=== PATIENT | male | born 1970 | race Caucasian/White ===

== ENCOUNTER 2016-11-25 09:38 | Emergency (ER) | payer OTHER ==
--- NOTE | 2016-11-25 10:02 | EDM.PDOC ---
ED HPI Behavioral Health - General Chief Complaint: Behavioral/Psych Stated Complaint: DEPRESSION Time Seen by Provider: 11/25/16 09:56 Source of Information: Reports: Patient Exam Limitations: Reports: No limitations - History of Present Illness INITIAL COMMENTS - FREE TEXT/NARRATIVE: HISTORY AND PHYSICAL: [46-year-old male presenting for concerns over depression and suicidal ideation. The patient did call to [facility] in my note and they recommended that he present to the emergency room and be evaluated.] History of Present Illness: [Patient has history of having severe depression and previous suicidal attempt. After his ablation therapy for kidney stones he has been at home. He is having difficult time leaving the house. Has not gone to work now, for the last 3 days. Patient admits to having suicidal ideation and has made plans. He has been taking his medication as prescribed. Patient has utilized marijuana to help him sleep. Denies any other drug use or alcohol use.] Review of Systems: As per history of present illness and below otherwise all systems reviewed and negative. Past medical history: As per history of present illness and as reviewed below otherwise noncontributory. Surgical history: As per history of present illness and as reviewed below otherwise noncontributory. Social history: No reported history of drug or alcohol abuse. Patient lives at home with his and child. They are supportive to his difficulty. Family history: As per history of present illness and as reviewed below otherwise noncontributory. Physical exam: HEENT: Atraumatic, normocehpalic, pupils reactive, negative for conjunctival pallor or scleral icterus, mucous membranes moist, throat clear, neck supple, nontender, trachea midline. Lungs: Clear to auscultation, breath sounds equal bilaterally, chest non tender. Heart: S1S2, regular, negative for clicks, rubs, or JVD. Abdomen: Soft, nondistended, nontender. Negative for masses or hepatossplenmegaly. Negative for costovertebral tenderness. Pelvis: Stable nontender. Genitourinary: Deferred. Rectal: Deferred Extremities: Atraumatic, negative for cords or calf pain. Neurovascular unremarkable. Neuro: Awake, alert, oriented. Cranial nerves II through XII unremarkable. Cerebellum unremarkable. Motor and sensory unremarkable throughout. Exam nonfocal. Diagnostics: [ EKG UA urine drug screen EtOH salicylate acetaminophen TSH T3 free magnesium CBC CMP] Therapeutics: [] Impression: [Depression with suicidal ideation] Plan: [Discussed case with Dr. Reveles at [facility] in [place], [place]. He has accepted the patient for transfer, Discussed case with Dr. Landaverde at [place] [facility] and she has accepted the patient's care patient will be transferred per ground ambulance. He is cooperative and appreciative of this transfer.. EMTALA and transfer forms have been completed.] Definitive disposition and diagnosis as appropriate pending reevaluation and review of above. Onset of Symptoms: Reports: gradual (over the last 2 weeks ) Duration of Symptoms: Reports: Week(s): (2) Severity: moderate Context, Behavioral Health: Reports: living situation Associated Symptoms: Reports: depression, suicidal thought - SAD Persons Scale (SPS) SPS Sex: Male SPS Age: Between 18-65 Years of Age SPS Depression: Yes SPS Previous Suicide Attempts: Yes SPS Alcohol Abuse/Drug Abuse: Yes SPS Rational Thinking Loss: No SPS Social Support Deficit: No SPS Organized Suicide Plan: Yes SPS No Spouse/Significant Other: No SPS Sickness: Yes SPS Sad Person Scale Score: 6 - Related Data Allergies Allergy/AdvReac Type Severity Reaction Status Date / Time No Known Allergies Allergy Verified 09/01/16 09:28 Home Medications: Home Meds Hydrochlorothiazide 25 mg PO DAILY 04/27/14 [History] Metoprolol Succinate [Toprol XL] 200 mg PO DAILY 01/03/15 [History] DULoxetine [Cymbalta] 60 mg PO DAILY 08/07/15 [History] ARIPiprazole [Abilify] 10 mg PO DAILY 09/01/16 [History] Past Medical History - Past Health History Medical/Surgical History: Denies Medical/Surgical History Cardiovascular History: Reports: Hypertension Gastrointestinal History: Reports: Other (see below) Other Gastrointestinal History: occasional heartburn Genitourinary History: Reports: Renal calculus Other Genitourinary History: several kidney stones Musculoskeletal History: Reports: Arthritis Psychiatric History: Reports: Anxiety, Depression Endocrine/Metabolic History: Reports: Obesity/BMI 30+ Dermatologic History: Reports: Psoriasis - Past Surgical History Head Surgeries/Procedures: Reports: None GI Surgical History: Reports: Cholecystectomy Female Surgical History: Reports: Kidney stone extraction Male Surgical History: Reports: Kidney stone extraction Other Male Surgeries/Procedures: stent placement Social & Family History - Family History Family Medical History: Noncontributory Cardiac: Reports: Hypertension Endocrine/Metabolic: Reports: Diabetes, type I, Diabetes, type II - Tobacco Use Smoking Status *Q: Former Smoker Years of Tobacco use: 15 Packs/Tins Daily: 1 Used Tobacco, but Quit: No Month Tobacco Last Used: quit smoking 20 yrs ago, chews 1 canof chew every 2 days Second Hand Smoke Exposure: No - Caffeine Use Caffeine Use: Reports: None - Alcohol Use Days Per Week of Alcohol Use: 0 Number of Drinks Per Day: 0 Total Drinks Per Week: 0 - Recreational Drug Use Recreational Drug Use: No Drug Use in Last 12 Months: No Recreational Drug Type: ED ROS GENERAL - Review of Systems Review Of Systems: See Below : Reports: flank pain, other (recent surgery for kidney stones) ED EXAM, BEHAVIORAL HEALTH - Physical Exam Exam: See Below (see dictation) COURSE, BEHAVIORAL HEALTH COMP - Course Vital Signs: Last Vital Signs Temp 37.3 C 11/25/16 10:10 Pulse 99 11/25/16 10:10 Resp 18 11/25/16 10:10 BP 152/91 H 11/25/16 10:10 Pulse Ox 97 11/25/16 10:10 Orders, Labs, Meds: Active Orders 24 hr Category Date Time Status EKG 12 Lead [EKG Documentation Completion] [RC] STAT Care 11/25/16 10:53 Active ACETAMINOPHEN [CHEM] Stat Lab 11/25/16 10:24 Results COMPREHENSIVE METABOLIC PN,CMP [CHEM] Stat Lab 11/25/16 10:24 Results DRUG SCREEN, URINE [URCHEM] Stat Lab 11/25/16 10:50 Ordered ETHANOL BLOOD MEDICAL [CHEM] Stat Lab 11/25/16 10:24 Results MAGNESIUM [CHEM] Stat Lab 11/25/16 10:24 Results SALICYLATE [CHEM] Stat Lab 11/25/16 10:24 Results T3, REVERSE [REF] Stat Lab 11/25/16 10:24 Received TSH [CHEM] Stat Lab 11/25/16 10:24 Results UA W/MICROSCOPIC [URIN] Stat Lab 11/25/16 10:50 Ordered Laboratory Tests 11/25/16 11/25/16 Range/Units 10:24 10:24 WBC 8.96 (4.0-11.0) K/uL RBC 5.50 (4.50-5.90) M/uL Hgb 16.5 (13.0-17.0) g/dL Hct 46.6 (38.0-50.0) % MCV 84.7 (80.0-98.0) fL MCH 30.0 (27.0-32.0) pg MCHC 35.4 (31.0-37.0) g/dL RDW Std Deviation 39.5 (28.0-62.0) fl RDW Coeff of Loren 13 (11.0-15.0) % Plt Count 293 (150-400) K/uL MPV 9.20 (7.40-12.00) fL Neut % (Auto) 73.0 (48.0-80.0) % Lymph % (Auto) 19.3 (16.0-40.0) % [place] % (Auto) 7.1 (0.0-15.0) % Eos % (Auto) 0.3 (0.0-7.0) % Baso % (Auto) 0.3 (0.0-1.5) % Neut # 6.5 H (1.4-5.7) K/uL Lymph # 1.7 (0.6-2.4) K/uL [place] # 0.6 (0.0-0.8) K/uL Eos # 0.0 (0.0-0.7) K/uL Baso # 0.0 (0.0-0.1) K/uL Nucleated RBC % 0.0 /100WBC Nucleated RBCs # 0 K/uL Sodium 140 (136-146) mmol/L Potassium 3.7 (3.5-5.1) mmol/L Chloride 105 (98-110) mmol/L Carbon Dioxide 22 (21-31) mmol/L BUN 21 (6.0-23.0) mg/dL Creatinine 1.3 (0.6-1.5) mg/dL Est Cr Clr Drug Dosing 76.43 mL/min Estimated GFR (MDRD) 59.7 ml/min Glucose 130 H (60-110) mg/dL Calcium 9.8 (8.8-10.8) mg/dL Magnesium 1.6 (1.5-2.3) mEq/L Total Bilirubin 0.8 (0.1-1.5) mg/dL AST 31 (5-40) IU/L ALT 70 H (8-54) IU/L Alkaline Phosphatase 69 (40-150) Total Protein 8.0 (6.0-8.0) g/dL Albumin 4.6 (3.5-5.0) g/dL Globulin 3.4 (2.0-3.5) g/dL Albumin/Globulin Ratio 1.4 (1.3-2.8) Ethyl Alcohol < 10.0 mg/dL Departure - Departure Time of Disposition: 11:02 Disposition: DC/Tfer to Psych Hosp/Unit 65 Condition: good Clinical Impression: Depressive disorder, Self-harm Forms: ED Department Discharge - My Orders Last 24 Hours: My Active Orders 11/25/16 10:24 ACETAMINOPHEN [CHEM] Stat COMPREHENSIVE METABOLIC PN,CMP [CHEM] Stat ETHANOL BLOOD MEDICAL [CHEM] Stat MAGNESIUM [CHEM] Stat SALICYLATE [CHEM] Stat T3, REVERSE [REF] Stat TSH [CHEM] Stat 11/25/16 10:50 DRUG SCREEN, URINE [URCHEM] Stat UA W/MICROSCOPIC [URIN] Stat 11/25/16 10:53 EKG 12 Lead [EKG Documentation Completion] [RC] STAT - Assessment/Plan Last 24 Hours: My Active Orders 11/25/16 10:24 ACETAMINOPHEN [CHEM] Stat COMPREHENSIVE METABOLIC PN,CMP [CHEM] Stat ETHANOL BLOOD MEDICAL [CHEM] Stat MAGNESIUM [CHEM] Stat SALICYLATE [CHEM] Stat T3, REVERSE [REF] Stat TSH [CHEM] Stat 11/25/16 10:50 DRUG SCREEN, URINE [URCHEM] Stat UA W/MICROSCOPIC [URIN] Stat 11/25/16 10:53 EKG 12 Lead [EKG Documentation Completion] [RC] STAT
[2016-11-25 10:50] LABS: CHLORIDE,CL 105 mmol/L (98-110); SODIUM,NA 140 mmol/L (136-146)
[2016-11-25 11:32] LABS: ACETAMINOPHEN < 3.0 ug/mL
[2016-11-25 11:42] VITALS: BP 132/87
== END 2016-11-25 11:51 ==
LOC: MW.ED 09:38
DX: F32.9 Major depressive disorder, single episode, unspecified (principal); I10 Essential (primary) hypertension; E11.9 Type 2 diabetes mellitus without complications; Z68.30 Body mass index [BMI] 30.0-30.9, adult; Z87.891 Personal history of nicotine dependence; Z90.49 Acquired absence of other specified parts of digestive tract; Z96.0 Presence of urogenital implants; Z98.890 Other specified postprocedural states; Z79.899 Other long term (current) drug therapy
CPT/HCPCS: 80053; 80305; 81001; 83735; 84443; 84482; 85025; 93005; 99285; G0480; 36415

== ENCOUNTER 2018-10-06 17:52 | Inpatient (IN) | payer OTHER ==
[2018-10-06] MEDS ORDERED: Morphine 4 MG/ML Syringe IVPUSH ONE (17:55)
[2018-10-06] MEDS ORDERED: Sodium Chloride 0.9% 1,000 ML IV ONE (17:55)
[2018-10-06] MEDS ORDERED: Ondansetron 4 MG/2 ML SDV IVPUSH ONE (17:55)
--- NOTE | 2018-10-06 18:01 | EDM.PDOC ---
ED HPI GENERAL MEDICAL PROBLEM - General Chief Complaint: Abdominal Pain Stated Complaint: GROIN PAIN Time Seen by Provider: 10/06/18 17:53 Source of Information: Reports: Patient History Limitations: Reports: No Limitations - History of Present Illness INITIAL COMMENTS - FREE TEXT/NARRATIVE: HISTORY AND PHYSICAL: History of present illness: Patient is a 48-year-old male who presents to the emergency room today with complaints of right lower abdominal pain and periumbilical pain. He states approximately an hour and a half ago he started to have generalized mid abdominal pain and the sensation of needing to have a bowel movement. He states he went to the toilet and started to bear down to have a bowel movement when he felt extreme pain to the right lower quadrant and umbilical area. He does have a history of kidney stones and hernia. He states he can feel that the hernia is more prominent and is painful with light palpation. Denies any testicular pain or swelling. Denies any fever, chills, chest pain, shortness of breath or cough. Denies any nausea, vomiting, diarrhea or constipation. Review of systems: As per history of present illness and below otherwise all systems reviewed and negative. Past medical history: As per history of present illness and as reviewed below otherwise noncontributory. Surgical history: As per history of present illness and as reviewed below otherwise noncontributory. Social history: See social history for further information Family history: As per history of present illness and as reviewed below otherwise noncontributory. Physical exam: General: Well-developed and well nourished 48-year-old male. Alert and oriented. Nontoxic appearing but uncomfortable appearing due to the abdominal pain. HEENT: Atraumatic, normocephalic, pupils equal and reactive bilaterally, negative for conjunctival pallor or scleral icterus, mucous membranes moist, TMs normal bilaterally, throat clear, neck supple, nontender, trachea midline. No drooling or trismus noted. No meningeal signs. No hot potato voice noted. Lungs: Clear to auscultation, breath sounds equal bilaterally, chest nontender. Heart: S1S2, regular rate and rhythm without overt murmur Abdomen: Soft, obese, tenderness to the RLQ and umbilicus at the 8 o'clock position. Palpable hernia at the umbilicus. No hepatosplenomegaly. Negative for costovertebral tenderness. Pelvis: Stable nontender. Genitourinary: Deferred. Rectal: Deferred. Skin: Intact, warm, dry. No lesions or rashes noted. Extremities: Atraumatic, negative for cords or calf pain. Neurovascular unremarkable. Neuro: Awake, alert, oriented. Cranial nerves II through XII unremarkable. Cerebellum unremarkable. Motor and sensory unremarkable throughout. Exam nonfocal. Notes: CT shows a new partial small bowel obstruction from a new protrusion of a moderately dilated incarcerated loop of small bowel into the hernia sac. There are some kidney stones noted, left. This information was shared with the patient. Dr. Rivera was consulted on this case. Last ate 1pm and a few sips of water prior to that. Dr Rivera is here to evaluate the patient. Plan is to go to the ER. VSS. Diagnostics: CBC, CMP, UA, CT abdomen/pelvis Therapeutics: IV fluids, Zofran, Morphine, Toradol, Dilaudid Impression: Incarcerated hernia Plan: To the OR per Dr Rivera Definitive disposition and diagnosis as appropriate pending reevaluation and review of above. Onset: Today Groin Pain Score (Numeric/FACES): 10 - Related Data Allergies Allergy/AdvReac Type Severity Reaction Status Date / Time No Known Allergies Allergy Verified 10/06/18 17:56 Home Meds: Home Meds hydroCHLOROthiazide [Hydrochlorothiazide] 25 mg PO DAILY 04/27/14 [History] DULoxetine [Cymbalta] 60 mg PO DAILY 08/07/15 [History] Past Medical History - Past Health History Medical/Surgical History: Denies Medical/Surgical History Cardiovascular History: Reports: Hypertension Gastrointestinal History: Reports: Other (See Below) Other Gastrointestinal History: occasional heartburn Genitourinary History: Reports: Renal Calculus Other Genitourinary History: several kidney stones Musculoskeletal History: Reports: Arthritis Psychiatric History: Reports: Anxiety, Depression Endocrine/Metabolic History: Reports: Obesity/BMI 30+ Dermatologic History: Reports: Psoriasis - Past Surgical History Male Surgical History: Reports: Kidney Stone Extraction Social & Family History - Family History Family Medical History: Noncontributory Cardiac: Reports: Hypertension Endocrine/Metabolic: Reports: Diabetes, Type I, Diabetes, type II - Caffeine Use Caffeine Use: Reports: None ED ROS GENERAL - Review of Systems Review Of Systems: ROS reveals no pertinent complaints other than HPI. ED EXAM, GI/ABD - Physical Exam Exam: See Below (See dictation) Course - Vital Signs Last Recorded V/S: Last Vital Signs Temp 97.4 F 10/06/18 19:14 Pulse 74 10/06/18 19:14 Resp 19 10/06/18 19:14 BP 201/109 H 10/06/18 19:14 Pulse Ox 97 10/06/18 19:14 - Orders/Labs/Meds Labs: Laboratory Tests 10/06/18 10/06/18 10/06/18 Range/Units 18:03 18:03 19:23 WBC 13.89 H (4.0-11.0) K/uL RBC 5.80 (4.50-5.90) M/uL Hgb 17.8 H (13.0-17.0) g/dL Hct 49.9 (38.0-50.0) % MCV 86.0 (80.0-98.0) fL MCH 30.7 (27.0-32.0) pg MCHC 35.7 (31.0-37.0) g/dL RDW Std Deviation 40.9 (28.0-62.0) fl RDW Coeff of Loren 13 (11.0-15.0) % Plt Count 329 (150-400) K/uL MPV 9.10 (7.40-12.00) fL Neut % (Auto) 65.0 (48.0-80.0) % Lymph % (Auto) 25.1 (16.0-40.0) % [place] % (Auto) 8.6 (0.0-15.0) % Eos % (Auto) 0.9 (0.0-7.0) % Baso % (Auto) 0.4 (0.0-1.5) % Neut # (Auto) 9.0 H (1.4-5.7) K/uL Lymph # (Auto) 3.5 H (0.6-2.4) K/uL [place] # (Auto) 1.2 H (0.0-0.8) K/uL Eos # (Auto) 0.1 (0.0-0.7) K/uL Baso # (Auto) 0.1 (0.0-0.1) K/uL Nucleated RBC % 0.0 /100WBC Nucleated RBCs # 0 K/uL Sodium 139 (136-148) mmol/L Potassium 3.5 (3.5-5.1) mmol/L Chloride 103 (98-107) mmol/L Carbon Dioxide 22.6 (21.0-32.0) mmol/L BUN 19 H (7.0-18.0) mg/dL Creatinine 1.1 (0.8-1.3) mg/dL Est Cr Clr Drug Dosing 88.42 mL/min Estimated GFR (MDRD) > 60.0 ml/min Glucose 128 H (74-106) mg/dL Calcium 9.2 (8.5-10.1) mg/dL Total Bilirubin 0.5 (0.2-1.0) mg/dL AST 18 (15-37) IU/L ALT 45 (14-63) IU/L Alkaline Phosphatase 80 (46-116) U/L Total Protein 8.2 (6.4-8.2) g/dL Albumin 4.3 (3.4-5.0) g/dL Globulin 3.9 (2.6-4.0) g/dL Albumin/Globulin Ratio 1.1 (0.9-1.6) Urine Color YELLOW Urine Appearance CLEAR Urine pH 5.5 (5.0-8.0) Ur Specific [place] >= 1.030 (1.001-1.035) Urine Protein 100 H (NEGATIVE) mg/dL Urine Glucose (UA) NEGATIVE (NEGATIVE) mg/dL Urine Ketones TRACE H (NEGATIVE) mg/dL Urine Occult Blood SMALL H (NEGATIVE) Urine Nitrite NEGATIVE (NEGATIVE) Urine Bilirubin NEGATIVE (NEGATIVE) Urine Urobilinogen 0.2 (<2.0) EU/dL Ur Leukocyte Esterase NEGATIVE (NEGATIVE) Urine RBC 1-2 (0-2/HPF) Urine WBC 1-2 (0-5/HPF) Ur Epithelial Cells RARE (NONE-FEW) Urine Bacteria FEW (NEGATIVE) Urine Mucus LIGHT (NONE-MOD) Meds: Medications Discontinued Medications Generic Name Dose Route Start Last Admin Trade Name Freq PRN Reason Stop Dose Admin Hydromorphone HCl 1 mg 10/06/18 18:15 10/06/18 18:24 Dilaudid IV 10/06/18 18:16 Not Given ONETIME ONE Hydromorphone HCl Confirm 10/06/18 18:17 10/06/18 18:22 Dilaudid Administered 10/06/18 18:18 Not Given Dose 1 mg .ROUTE .STK-MED ONE Hydromorphone HCl 1 mg 10/06/18 18:22 10/06/18 18:22 Dilaudid IVPUSH 10/06/18 18:23 1 mg ONETIME ONE Administration Hydromorphone HCl 1 mg 10/06/18 19:23 10/06/18 19:31 Dilaudid IVPUSH 10/06/18 19:24 1 mg ONETIME ONE Administration Sodium Chloride 1,000 mls @ 999 mls/hr 10/06/18 17:55 10/06/18 18:10 Normal Saline IV 10/06/18 18:55 999 mls/hr BOLUS ONE Administration Ketorolac Tromethamine 30 mg 10/06/18 18:15 10/06/18 18:18 Toradol IVPUSH 10/06/18 18:16 30 mg ONETIME ONE Administration Morphine Sulfate 4 mg 10/06/18 17:55 10/06/18 18:11 Morphine IVPUSH 10/06/18 17:56 4 mg ONETIME ONE Administration Ondansetron HCl 4 mg 10/06/18 17:55 10/06/18 18:11 Zofran IVPUSH 10/06/18 17:56 4 mg ONETIME ONE Administration Departure - Departure Time of Disposition: 20:22 Disposition: Still A Patient 30 Clinical Impression: Incarcerated hernia - Discharge Information
[2018-10-06] MEDS ORDERED: Ketorolac 30 MG/ML SDV IVPUSH ONE (18:15)
[2018-10-06] MEDS ORDERED: HYDROmorphone 2 MG/ML SDV IV ONE (18:15)
[2018-10-06] MEDS ORDERED: HYDROmorphone 1 MG/ML Syringe ONE (18:17)
[2018-10-06] MEDS ORDERED: HYDROmorphone 1 MG/ML Syringe IVPUSH ONE ×2 (18:22→19:23)
[2018-10-06 19:06] LABS: CHLORIDE,CL 103 mmol/L (98-107); SODIUM,NA 139 mmol/L (136-148)
--- NOTE | 2018-10-06 19:43 | CT ---
INDICATION: History of hernia and stones. Right lower quadrant and umbilical pain. COMPARISON: 11/09/2016 TECHNIQUE: CT examination of the abdomen and pelvis was performed without contrast enhancement using 3 mm thick axial sections from the lung bases through the pubic symphysis. Oral contrast was not administered. Please note that all CT scans at this facility use dose modulation, iterative reconstruction, and/or weight-based dosing when appropriate to reduce radiation dose to as low as reasonably achievable. FINDINGS: In the abdomen, the unenhanced liver, spleen, pancreas, and adrenals are normal in appearance. The previously seen nonobstructing calculus in the interpolar left kidney is increased in size slightly and is now 9 millimeters in diameter. The previously seen calculus in the lower pole of the left kidney has moved into the posterior aspect of the lower pole and has increased in size, now measuring 13 millimeters. The previously seen punctate calculus located in the interpolar region is no longer present. The previously seen mild left hydronephrosis and mild left hydroureter has resolved with passage of the distal ureteral calculus. On the right, there is no sign of nephrolithiasis, ureterolithiasis, hydronephrosis, or hydroureter. Clips are again seen in the gall bladder fossa from cholecystectomy. The abdominal aorta is normal in caliber with no sign of dilatation. There is no sign of retroperitoneal mass or adenopathy. There is new mild dilatation of the proximal small bowel extending to the small right periumbilical hernia. The hernia now contains a short segment of distended small bowel consistent with incarceration of the loop. The findings are that of partial small bowel obstruction. The stomach and colon in the abdomen are normal in appearance. In the pelvis, the appendix is normal in appearance with no sign of inflammatory process. The loops of small bowel and colon in the pelvis are normal in appearance. The prostate is normal in appearance. The urinary bladder is normal in appearance. There is no sign of pelvic or inguinal mass or adenopathy. The lung bases are clear. The osseous structures are normal in appearance for the patient`s age. IMPRESSION: CT OF THE ABDOMEN SHOWS NEW PARTIAL SMALL BOWEL OBSTRUCTION FROM NEW PROTRUSION OF A MODERATELY DILATED, INCARCERATED LOOP OF SMALL BOWEL INTO THE HERNIA SAC. RESOLUTION OF THE PREVIOUSLY SEEN MILD LEFT HYDRONEPHROSIS AND HYDROURETER WITH PASSAGE OF THE PREVIOUSLY SEEN LEFT DISTAL URETERAL CALCULUS. INCREASE IN SIZE OF THE 2 DOMINANT CALCULI IN THE LEFT KIDNEY, THE LARGEST MEASURING UP TO 12 MILLIMETERS IN CALIBER. STATUS POST CHOLECYSTECTOMY. CT OF THE PELVIS SHOWS NO SIGN OF ANY ADDITIONAL ABNORMALITY. Please note that all CT scans at this facility use dose modulation, iterative reconstruction, and/or weight-based dosing when appropriate to reduce radiation dose to as low as reasonably achievable. Dictated by Rashid Cleary MD @ Oct 06 2018 7:32PM Signed by Dr. Rashid Cleary @ Oct 06 2018 7:42PM
[2018-10-06] MEDS ORDERED: Bupivacaine 0.5% 30 ML SDV ONE (20:38)
[2018-10-06] MEDS ORDERED: Piperacillin/Tazobactam 3.375 GM in Sodium Chloride 0.9% 50 ML IV ONE (20:39)
[2018-10-06] MEDS ORDERED: Midazolam 1 MG/ML 2 ML SDV ONE ×2 (20:40→21:27)
[2018-10-06] MEDS ORDERED: fentaNYL 250 MCG/5 ML SDV ONE (20:40)
[2018-10-06] MEDS ORDERED: Propofol 200 MG/20 ML SDV ONE (20:40)
[2018-10-06] MEDS ORDERED: Lidocaine 2% 5 ML SDV ONE (20:42)
[2018-10-06] MEDS ORDERED: Rocuronium 10 MG/ML 10 ML Syringe ONE (20:43)
[2018-10-06] MEDS ORDERED: Succinylcholine 200 MG/10 ML MDV ONE (20:43)
[2018-10-06] MEDS ORDERED: Dexamethasone 4 MG/ML 5 ML MDV ONE (20:44)
[2018-10-06] MEDS ORDERED: Ondansetron 4 MG/2 ML SDV ONE (20:44)
--- NOTE | 2018-10-06 21:01 | PCM.PREANE ---
Preanesthetic Assessment - Anesthesia/Transfusion/Family Hx Anesthesia History: Prior Anesthesia Without Reaction (danica, many ESWL and Cysto for kidney stones: GA without problems. One time sounds like he had either laryngospasm or bronchospasm upon extubation after kidney stone procedure.) Other Type of Anesthesia Reaction Comment: states he has a hard time breathing when coming out of anesthesia Family History of Anesthesia Reaction: No Transfusion History: No Prior Transfusion(s) - Review of Systems General: No Symptoms (morbidly obese (5'11' 150 kg)) Pulmonary: No Symptoms (ALEJANDRO--uses cpap at home), Other (quit smoking 2002. Now chews. Quit drinking 2009.) Cardiovascular: No Symptoms (hypertension) Gastrointestinal: No Symptoms (occasional GERD. History of hepatitis 25 years ago.) Neurological: No Symptoms, Other (depression) Other: Reports: None (hard of hearing, obese, arthritis, psoriasis, hepatitis 25 years ago) - Physical Assessment NPO Status Date: 10/06/18 NPO Status Time: 14:30 (food at noon, liquids at 1430) Pulse: 97 O2 Sat by Pulse Oximetry: 95 Respiratory Rate: 19 Blood Pressure: 168/96 Temperature: 36.1 C Vital Signs: Last Vital Signs Temp 36.1 C 10/06/18 20:33 Pulse 97 10/06/18 20:33 Resp 19 10/06/18 20:33 BP 168/96 H 10/06/18 20:33 Pulse Ox 95 10/06/18 20:33 Height: 1.8 m Weight: 142.882 kg ASA Class: 3E Mental Status: Alert & Oriented x3 Airway Class: Mallampati = 2 Dentition: Reports: Normal Dentition Thyro-Mental Finger Breadths: 2 Mouth Opening Finger Breadths: 3 ROM/Head Extension: Full Lungs: Clear to Auscultation, Normal Respiratory Effort Cardiovascular: Regular Rate, Regular Rhythm, No Murmurs - Lab Values: Laboratory Last Values WBC 13.89 K/uL (4.0-11.0) H 10/06/18 18:03 RBC 5.80 M/uL (4.50-5.90) 10/06/18 18:03 Hgb 17.8 g/dL (13.0-17.0) H 10/06/18 18:03 Hct 49.9 % (38.0-50.0) 10/06/18 18:03 MCV 86.0 fL (80.0-98.0) 10/06/18 18:03 MCH 30.7 pg (27.0-32.0) 10/06/18 18:03 MCHC 35.7 g/dL (31.0-37.0) 10/06/18 18:03 RDW Std Deviation 40.9 fl (28.0-62.0) 10/06/18 18: RDW Coeff of Loren 13 % (11.0-15.0) 10/06/18 18:03 Plt Count 329 K/uL (150-400) 10/06/18 18:03 MPV 9.10 fL (7.40-12.00) 10/06/18 18:03 Neut % (Auto) 65.0 % (48.0-80.0) 10/06/18 18:03 Lymph % (Auto) 25.1 % (16.0-40.0) 10/06/18 18:03 [place] % (Auto) 8.6 % (0.0-15.0) 10/06/18 18:03 Eos % (Auto) 0.9 % (0.0-7.0) 10/06/18 18:03 Baso % (Auto) 0.4 % (0.0-1.5) 10/06/18 18:03 Neut # (Auto) 9.0 K/uL (1.4-5.7) H 10/06/18 18:03 Lymph # (Auto) 3.5 K/uL (0.6-2.4) H 10/06/18 18:03 [place] # (Auto) 1.2 K/uL (0.0-0.8) H 10/06/18 18:03 Eos # (Auto) 0.1 K/uL (0.0-0.7) 10/06/18 18:03 Baso # (Auto) 0.1 K/uL (0.0-0.1) 10/06/18 18:03 Nucleated RBC % 0.0 /100WBC 10/06/18 18:03 Nucleated RBCs # 0 K/uL 10/06/18 18:03 Sodium 139 mmol/L (136-148) 10/06/18 18:03 Potassium 3.5 mmol/L (3.5-5.1) 10/06/18 18:03 Chloride 103 mmol/L (98-107) 10/06/18 18:03 Carbon Dioxide 22.6 mmol/L (21.0-32.0) 10/06/18 18:03 BUN 19 mg/dL (7.0-18.0) H 10/06/18 18:03 Creatinine 1.1 mg/dL (0.8-1.3) 10/06/18 18:03 Est Cr Clr Drug Dosing 88.42 mL/min 10/06/18 18:03 Estimated GFR (MDRD) > 60.0 ml/min 10/06/18 18:03 Glucose 128 mg/dL (74-106) H 10/06/18 18:03 Calcium 9.2 mg/dL (8.5-10.1) 10/06/18 18:03 Total Bilirubin 0.5 mg/dL (0.2-1.0) 10/06/18 18:03 AST 18 IU/L (15-37) 10/06/18 18:03 ALT 45 IU/L (14-63) 10/06/18 18:03 Alkaline Phosphatase 80 U/L (46-116) 10/06/18 18:03 Total Protein 8.2 g/dL (6.4-8.2) 10/06/18 18: Albumin 4.3 g/dL (3.4-5.0) 10/06/18 18: Globulin 3.9 g/dL (2.6-4.0) 10/06/18 18: Albumin/Globulin Ratio 1.1 (0.9-1.6) 10/06/18 18: Urine Color YELLOW 10/06/18 19:23 Urine Appearance CLEAR 10/06/18 19: Urine pH 5.5 (5.0-8.0) 10/06/18 19: Ur Specific [place] >= 1.030 (1.001-1.035) 10/06/18 19: Urine Protein 100 mg/dL (NEGATIVE) H 10/06/18 19: Urine Glucose (UA) NEGATIVE mg/dL (NEGATIVE) 10/06/18 19: Urine Ketones TRACE mg/dL (NEGATIVE) H 10/06/18 19: Urine Occult Blood SMALL (NEGATIVE) H 10/06/18 19:23 Urine Nitrite NEGATIVE (NEGATIVE) 10/06/18 19:23 Urine Bilirubin NEGATIVE (NEGATIVE) 10/06/18 19:23 Urine Urobilinogen 0.2 EU/dL (<2.0) 10/06/18 19:23 Ur Leukocyte Esterase NEGATIVE (NEGATIVE) 10/06/18 19:23 Urine RBC 1-2 (0-2/HPF) 10/06/18 19:23 Urine WBC 1-2 (0-5/HPF) 10/06/18 19:23 Ur Epithelial Cells RARE (NONE-FEW) 10/06/18 19:23 Urine Bacteria FEW (NEGATIVE) 10/06/18 19:23 Urine Mucus LIGHT (NONE-MOD) 10/06/18 19:23 - Allergies Allergies/Adverse Reactions: Allergies Allergy/AdvReac Type Severity Reaction Status Date / Time No Known Allergies Allergy Verified 10/06/18 17:56 - Blood Blood Available: No Product(s) Available: None - Acknowledgements Anesthesia Type Planned: General Anesthesia (Plan: GA with ETT. Post op pulse ox overnight (ALEJANDRO). Discussed with patient. All questions answered. Consent signed.) Pt an Appropriate Candidate for the Planned Anesthesia: Yes Alternatives and Risks of Anesthesia Discussed w Pt/Guardian: Yes Pt/Guardian Understands and Agrees with Anesthesia Plan: Yes PreAnesthesia Questionnaire - Past Health History Medical/Surgical History: Denies Medical/Surgical History Cardiovascular History: Reports: Hypertension Gastrointestinal History: Reports: Other (See Below) Other Gastrointestinal History: occasional heartburn Genitourinary History: Reports: Renal Calculus Other Genitourinary History: several kidney stones Musculoskeletal History: Reports: Arthritis Psychiatric History: Reports: Anxiety, Depression Endocrine/Metabolic History: Reports: Obesity/BMI 30+ Dermatologic History: Reports: Psoriasis - Infectious Disease History Infectious Disease History: Reports: Chicken Pox - Past Surgical History Male Surgical History: Reports: Kidney Stone Extraction - SUBSTANCE USE Smoking Status *Q: Current Every Day Smoker Tobacco Use Within Last Twelve Months: Snuff/Dip Recreational Drug Use History: No - HOME MEDS Home Medications: Home Meds hydroCHLOROthiazide [Hydrochlorothiazide] 25 mg PO DAILY 04/27/14 [History] DULoxetine [Cymbalta] 60 mg PO DAILY 08/07/15 [History] - CURRENT (IN HOUSE) MEDS Current Meds: Current Medications Piperacillin Sod/Tazobactam (Sod 3.375 gm/ Sodium Chloride) 50 mls @ 100 mls/ hr IV ONETIME ONE Stop: 10/06/18 21:08 Last Admin: 10/06/18 20:46 Dose: 100 mls/hr Discontinued Medications Bupivacaine HCl (Marcaine 0.5%) Confirm Administered Dose 30 ml .ROUTE .STK-MED ONE Stop: 10/06/18 20:39 Dexamethasone (Dexamethasone) Confirm Administered Dose 20 mg .ROUTE .STK-MED ONE Stop: 10/06/18 20:45 Fentanyl (Sublimaze) Confirm Administered Dose 250 mcg .ROUTE .STK-MED ONE Stop: 10/06/18 20:41 Hydromorphone HCl (Dilaudid) 1 mg IV ONETIME ONE Stop: 10/06/18 18:16 Last Admin: 10/06/18 18:24 Dose: Not Given Hydromorphone HCl (Dilaudid) Confirm Administered Dose 1 mg .ROUTE .STK-MED ONE Stop: 10/06/18 18:18 Last Admin: 10/06/18 18:22 Dose: Not Given Hydromorphone HCl (Dilaudid) 1 mg IVPUSH ONETIME ONE Stop: 10/06/18 18:23 Last Admin: 10/06/18 18:22 Dose: 1 mg Hydromorphone HCl (Dilaudid) 1 mg IVPUSH ONETIME ONE Stop: 10/06/18 19:24 Last Admin: 10/06/18 19:31 Dose: 1 mg Sodium Chloride (Normal Saline) 1,000 mls @ 999 mls/hr IV BOLUS ONE Stop: 10/06/18 18:55 Last Admin: 10/06/18 18:10 Dose: 999 mls/hr Ketorolac Tromethamine (Toradol) 30 mg IVPUSH ONETIME ONE Stop: 10/06/18 18:16 Last Admin: 10/06/18 18:18 Dose: 30 mg Lidocaine (Xylocaine-Mpf 2%) Confirm Administered Dose 5 ml .ROUTE .STK-MED ONE Stop: 10/06/18 20:43 Midazolam HCl (Versed 1 Mg/Ml) Confirm Administered Dose 2 mg .ROUTE .STK-MED ONE Stop: 10/06/18 20:41 Morphine Sulfate (Morphine) 4 mg IVPUSH ONETIME ONE Stop: 10/06/18 17:56 Last Admin: 10/06/18 18:11 Dose: 4 mg Ondansetron HCl (Zofran) 4 mg IVPUSH ONETIME ONE Stop: 10/06/18 17:56 Last Admin: 10/06/18 18:11 Dose: 4 mg Ondansetron HCl (Zofran) Confirm Administered Dose 4 mg .ROUTE .STK-MED ONE Stop: 10/06/18 20:45 Propofol (Diprivan 20 Ml) Confirm Administered Dose 200 mg .ROUTE .STK-MED ONE Stop: 10/06/18 20:41 Rocuronium [place] (Zemuron) Confirm Administered Dose 100 mg .ROUTE .STK-MED ONE Stop: 10/06/18 20:44 Succinylcholine Chloride (Quelicin) Confirm Administered Dose 200 mg .ROUTE .STK -MED ONE Stop: 10/06/18 20:44
[2018-10-06] MEDS ORDERED: Glycopyrrolate 0.2 MG/ML SDV ONE ×2 (21:53→22:57)
[2018-10-06] MEDS ORDERED: Neostigmine Methylsulfate 1 MG/ML 5 ML Syringe ONE (21:53)
[2018-10-06] MEDS ORDERED: Sodium Chloride 0.9% 20 ML ONE (22:10)
[2018-10-06] MEDS ORDERED: HYDROmorphone 2 MG/ML Syringe ONE (22:10)
[2018-10-06] MEDS ORDERED: ceFAZolin 1 GM Vial ONE (22:18)
[2018-10-06] MEDS ORDERED: ePHEDrine 50 MG/ML SDV ONE (22:27)
[2018-10-06] MEDS ORDERED: fentaNYL 100 MCG/2 ML SDV IVPUSH PRN (23:07)
--- NOTE | 2018-10-06 23:37 | PCM.OPNOTE ---
- General Post-Op/Procedure Note Date of Surgery/Procedure: 10/06/18 Operative Procedure(s): Exploratory laparotomy and repair of strangulated incisional hernia Findings: Strangulated segment of mid small bowel within a nuris-umbilical hernia sac. The fascial defect measured 3cm. The bowel appear dusky and bruised initially then regained color after close monitoring. Intraoperative doppler showed great arterial blood flow through the strangulated segment. Pre Op Diagnosis: Strangulated incisional hernia Post-Op Diagnosis: same Anesthesia Technique: General ET Tube Primary Surgeon: Karuna Rivera Fluid Replacement, Intraop: 2,000 Output, Urine Amount: 200 EBL in mLs: 30 Condition: Fair
--- NOTE | 2018-10-06 23:43 | PCM.HP ---
H&P History of Present Illness - General Date of Service: 10/06/18 Admit Problem/Dx: Admission Diagnosis/Problem Admission Diagnosis/Problem Incarcerated hernia Source of Information: Patient History Limitations: Reports: No Limitations - History of Present Illness Initial Comments - Free Text/Narative: Patient is a 48 year old male who presents with a strangulated nuris-umbilical hernia. He was having a bowel movement tonight when he developed sharp severe nuris-umbilical pain. It was the worst pain he has ever experienced. He noticed a large painful bulge around his umbilicus. He has an incision over the area from a previous laparoscopic cholecystectomy. He became nauseous and vomited. He presented to the ER. His WBC was slightly elevated and a CT of the abomen/ pelvis showed a strangulated piece of small bowel in a nuris-umbilical hernia sac. Groin Pain Score (Numeric/FACES): 10 - Related Data Allergies/Adverse Reactions: Allergies Allergy/AdvReac Type Severity Reaction Status Date / Time No Known Allergies Allergy Verified 10/06/18 17:56 Home Medications: Home Meds hydroCHLOROthiazide [Hydrochlorothiazide] 25 mg PO DAILY 04/27/14 [History] DULoxetine [Cymbalta] 60 mg PO DAILY 08/07/15 [History] Past Medical History - Past Health History Medical/Surgical History: Denies Medical/Surgical History Cardiovascular History: Reports: Hypertension Gastrointestinal History: Reports: Other (See Below) Other Gastrointestinal History: occasional heartburn Genitourinary History: Reports: Renal Calculus Other Genitourinary History: several kidney stones Musculoskeletal History: Reports: Arthritis Psychiatric History: Reports: Anxiety, Depression Endocrine/Metabolic History: Reports: Obesity/BMI 30+ Dermatologic History: Reports: Psoriasis - Infectious Disease History Infectious Disease History: Reports: Chicken Pox - Past Surgical History Male Surgical History: Reports: Kidney Stone Extraction Social & Family History - Family History Family Medical History: Noncontributory Cardiac: Reports: Hypertension Endocrine/Metabolic: Reports: Diabetes, Type I, Diabetes, type II - Tobacco Use Smoking Status *Q: Current Every Day Smoker Years of Tobacco use: 30 Packs/Tins Daily: 1 - Caffeine Use Caffeine Use: Reports: None - Recreational Drug Use Recreational Drug Use: No H&P Review of Systems - Review of Systems: Review Of Systems: See Below Exam - Exam Exam: See Below - Vital Signs Vital Signs: Last Vital Signs Temp 36.1 C 10/06/18 21:02 Pulse 97 10/06/18 21:02 Resp 19 10/06/18 21:02 BP 168/96 H 10/06/18 21:02 Pulse Ox 95 10/06/18 21:02 Weight: 142.882 kg - Exam General: Alert, Oriented, Severe Distress HEENT: Conjunctiva Clear, Mucosa Moist & [place], Posterior Pharynx Clear Neck: Trachea Midline Lungs: Clear to Auscultation, Normal Respiratory Effort Cardiovascular: Regular Rate, Regular Rhythm GI/Abdominal Exam: Soft, No Distention, Other (Hard firm tender mass around the umbilicus. No tenderness in other areas of the abdomen ) Extremities: Normal Inspection - Patient Data Lab Results Last 24 hrs: Laboratory Results - last 24 hr 10/06/18 10/06/18 10/06/18 Range/Units 18:03 18:03 19:23 WBC 13.89 H (4.0-11.0) K/uL RBC 5.80 (4.50-5.90) M/uL Hgb 17.8 H (13.0-17.0) g/dL Hct 49.9 (38.0-50.0) % MCV 86.0 (80.0-98.0) fL MCH 30.7 (27.0-32.0) pg MCHC 35.7 (31.0-37.0) g/dL RDW Std Deviation 40.9 (28.0-62.0) fl RDW Coeff of Loren 13 (11.0-15.0) % Plt Count 329 (150-400) K/uL MPV 9.10 (7.40-12.00) fL Neut % (Auto) 65.0 (48.0-80.0) % Lymph % (Auto) 25.1 (16.0-40.0) % [place] % (Auto) 8.6 (0.0-15.0) % Eos % (Auto) 0.9 (0.0-7.0) % Baso % (Auto) 0.4 (0.0-1.5) % Neut # (Auto) 9.0 H (1.4-5.7) K/uL Lymph # (Auto) 3.5 H (0.6-2.4) K/uL [place] # (Auto) 1.2 H (0.0-0.8) K/uL Eos # (Auto) 0.1 (0.0-0.7) K/uL Baso # (Auto) 0.1 (0.0-0.1) K/uL Nucleated RBC % 0.0 /100WBC Nucleated RBCs # 0 K/uL Sodium 139 (136-148) mmol/L Potassium 3.5 (3.5-5.1) mmol/L Chloride 103 (98-107) mmol/L Carbon Dioxide 22.6 (21.0-32.0) mmol/L BUN 19 H (7.0-18.0) mg/dL Creatinine 1.1 (0.8-1.3) mg/dL Est Cr Clr Drug Dosing 88.42 mL/min Estimated GFR (MDRD) > 60.0 ml/min Glucose 128 H (74-106) mg/dL Calcium 9.2 (8.5-10.1) mg/dL Total Bilirubin 0.5 (0.2-1.0) mg/dL AST 18 (15-37) IU/L ALT 45 (14-63) IU/L Alkaline Phosphatase 80 (46-116) U/L Total Protein 8.2 (6.4-8.2) g/dL Albumin 4.3 (3.4-5.0) g/dL Globulin 3.9 (2.6-4.0) g/dL Albumin/Globulin Ratio 1.1 (0.9-1.6) Urine Color YELLOW Urine Appearance CLEAR Urine pH 5.5 (5.0-8.0) Ur Specific [place] >= 1.030 (1.001-1.035) Urine Protein 100 H (NEGATIVE) mg/dL Urine Glucose (UA) NEGATIVE (NEGATIVE) mg/dL Urine Ketones TRACE H (NEGATIVE) mg/dL Urine Occult Blood SMALL H (NEGATIVE) Urine Nitrite NEGATIVE (NEGATIVE) Urine Bilirubin NEGATIVE (NEGATIVE) Urine Urobilinogen 0.2 (<2.0) EU/dL Ur Leukocyte Esterase NEGATIVE (NEGATIVE) Urine RBC 1-2 (0-2/HPF) Urine WBC 1-2 (0-5/HPF) Ur Epithelial Cells RARE (NONE-FEW) Urine Bacteria FEW (NEGATIVE) Urine Mucus LIGHT (NONE-MOD) Result Diagrams: 10/06/18 18:03 10/06/18 18:03 - Problem List (1) Strangulated ventral incisional hernia SNOMED Code(s): 722133494 ICD Code: K43.0 - INCISIONAL HERNIA WITH OBSTRUCTION, WITHOUT GANGRENE Status: Acute Current Visit: Yes Problem List Initiated/Reviewed/Updated: Yes Orders Last 24hrs: Active Orders 24 hr Category Date Time Status Admission Status [Patient Status] [ADT] Routine ADT 10/06/18 21:24 Active Overnight Pulse Oximetry [RC] Click to Edit Care 10/06/18 21:03 Active Oxygen Therapy [RC] ASDIRECTED Care 10/06/18 21:04 Active fentaNYL [Sublimaze] Med 10/06/18 23:07 Active 50 mcg IVPUSH Q5M PRN Medication Orders Fentanyl (Sublimaze) 50 mcg IVPUSH Q5M PRN PRN Reason: Pain (severe 7-10) Stop: 10/07/18 02:00 Assessment/Plan Comment:: I explained to the patient that he had a strangulated hernia. This is a surgical emergency and requires immediate surgery. I told him that he needed an exploratory laparotomy with reduction and primary repair of his hernia with the possibility of bowel resection. We discussed the risks including bleeding, infection or damage to surrounding structures. He verbalized understanding and wishes to proceed.
[2018-10-06] MEDS ORDERED: Sodium Chloride 0.9% 10 ML Syringe FLUSH PRN (23:44)
[2018-10-06] MEDS ORDERED: Acetaminophen 650 MG Supp RECTAL PRN (23:44)
[2018-10-06] MEDS ORDERED: Sodium Chloride 0.9% 2.5 ML Syringe FLUSH PRN (23:44)
--- NOTE | 2018-10-06 23:52 | PCM.POSTAN ---
POST ANESTHESIA ASSESSMENT - MENTAL STATUS Mental Status: Alert, Oriented - RESPIRATORY Respiratory Status: Respiratory Rate WNL, Airway Patent, O2 Saturation Stable - CARDIOVASCULAR CV Status: Pulse Rate WNL, Blood Pressure Stable - GASTROINTESTINAL GI Status: No Symptoms - PAIN Pain Score: 3 - POST OP HYDRATION Hydration Status: Adequate & Stable
[2018-10-07] MEDS ORDERED: Morphine PF 30 MG/30 ML PCA Vial IV STA (02:22)
[2018-10-07] MEDS ORDERED: Diphtheria,Pertussis(Acell),Tetanus Vaccine 0.5 ML Syringe IM ONE ×2 (03:00→10:00)
--- NOTE | 2018-10-07 03:03 | OR ---
SURGEON: ALLIE BAUTISTA MD DATE OF PROCEDURE: 10/06/2018 PREOPERATIVE DIAGNOSIS: Strangulated periumbilical incisional hernia. POSTOPERATIVE DIAGNOSIS: Strangulated periumbilical incisional hernia. PROCEDURE PERFORMED: Exploratory laparotomy and repair of incisional hernia. SECOND SURGEON: Baldemar Diggs M.D. FLUIDS: 2000 mL of crystalloid. ESTIMATED BLOOD LOSS: 30 mL. URINE OUTPUT: 200 mL. FINDINGS: A 3 cm periumbilical incisional hernia containing strangulated small bowel. The bowel appeared dusky and bruised upon reduction; however, after approximately 1 hour, the bowel appeared viable. Strong Doppler blood flow throughout the segment. The strangulated segment showed peristalsis. COMPLICATIONS: None. INDICATIONS: The patient is a 48-year-old male who was having a bowel movement this evening when he developed sharp, severe periumbilical pain.. He presented to the emergency room. On physical exam, he had a tender firm mass next to a previous laparoscopic cholecystectomy scar consistent with a strangulated incisional hernia. A CT of the abdomen and pelvis confirmed this. The patient and I discussed the need for an emergent exploratory laparotomy. I explained to the patient that after we reduced the small bowel in the abdomen, I would inspect the bowel for viability. If it did not appear viable, we wound perform a small-bowel resection. I explained the procedure, expected perioperative course, and risks including bleeding, infection, or damage to surrounding structures. The patient verbalized understanding and wishes to proceed. PROCEDURE IN DETAIL: The patient was brought to the OR and placed on the OR table in supine position. A time-out was completed verifying the patient's name, age, date of , allergies, and procedure to be performed. General endotracheal anesthesia was induced. The abdomen was prepped and draped in usual standard fashion and a Foster catheter placed. A periumbilical midline incision was made using a 10 blade. Cautery was used to dissect down through the layers of the subcutaneous fat. I immediately encountered a large hernia sac that was located along the right lateral aspect of the umbilicus and extended superiorly. I dissected this out bluntly and with the Metzenbaum scissors. I cleared it away down to the level of the fascia. I elevated the fascia along the inferior midline inferiorly with hemostats and incised it sharply with a Stock scissors. I then opened the anterior fascia up to the level of the hernia sac. Upon doing this, the hernia sac was then able to be reduced back into the abdomen. I began taking down the hernia sac and opened it. It clearly contained small bowel. The small bowel was somewhat attached to a thickened sac. I continued to clear away the sac from the surrounding small bowel. This was difficult, so instead, I turned my attention to opening up and getting into the peritoneal space. Once I had done this, I was then able to clear the small bowel completely away from the hernia sac itself. The fascial defect measured 3 cm in size. I opened up the fascia above and below. I then ran the small bowel from the ligament of Treitz down to the terminal ileum. In the mid section of the small bowel was the strangulated segment which measured 6 cm. At first, it appeared bruised and dusky. There was a question of viability. I called my partner, Dr. Baldemar Diggs, in to consult on the case to assess the viability, and to help me out should I need to perform a small-bowel resection. By the time Dr. Diggs arrived in the operating room, the bowel had started to regain good color. It was no longer dusky, and the areas that appeared bruised were resolving. An intraoperative Doppler was performed. There was great blood flow throughout the mesentery up to the questionable piece of bowel. We continued to monitor the area, and it began to peristalse appropriately. After approximately 1 hour, the bowel appeared viable with no dusky areas or patches of necrosis. The decision was made to not perform a bowel resection. We then turned our attention to the hernia sac. The hernia sac was thickened and was covered in fat. We used a harmonic device to take down this hernia sac. It was then sent to pathology, labeled as hernia sac. The patient's fascia was somewhat thin and attenuated. We decided to close it with 1-0 Prolene sutures. This was run along the fascia taking bites of the peritoneum. Before closing the fascia completely, we irrigated the abdomen with a normal saline-Ancef mixture and suctioned this out. The 1-0 Prolene was then tied and the fascia closed. The subcutaneous fat was closed with a running 3-0 Vicryl stitch. The skin was closed with skin tianna. Sterile dressings were applied. All counts were complete and correct at the end of the case. The patient was transferred to the PACU in stable condition. RONALD MARIE /[id number] MTDD
[2018-10-07 06:42] LABS: CHLORIDE,CL 107 mmol/L (98-107); SODIUM,NA 139 mmol/L (136-148)
[2018-10-07] MEDS: Lactated Ringers 1,000 ML IV SCH ×2 (06:44→15:49)
[2018-10-07] MEDS: Nicotine 14 MG/24 Hr Patch TRDERM SCH (08:39)
[2018-10-07] MEDS: Pantoprazole 40 MG Vial IVPUSH SCH (08:39)
[2018-10-07] MEDS ORDERED: Morphine PF 30 MG/30 ML PCA Vial IV SCH (09:00)
--- NOTE | 2018-10-07 09:18 | PCM48HPAN ---
Post Anesthesia Note - EVALUATION WITHIN 48HRS OF ANESTHETIC Vital Signs in Normal Range: Yes Patient Participated in Evaluation: Yes Respiratory Function Stable: Yes Airway Patent: Yes Cardiovascular Function Stable: Yes Hydration Status Stable: Yes Pain Control Satisfactory: Yes Nausea and Vomiting Control Satisfactory: Yes Mental Status Recovered: Yes Pulse Rate: 97 SaO2: 96 Resp Rate: 16 Temperature: 36.1 C Blood Pressure: 168/96 Pulse Rate: 85 - COMMENTS/OBSERVATIONS Free Text/Narrative:: patient see this morning. present. Says he did not sleep well last night-- just on and off. Oxygen being delivered by face tent (pt has NG). Continuous pulse ox overninght due to history of ALEJANDRO. Pain is less this morning than it was yesterday. Overall doing very well postoperatively.
[2018-10-07] MEDS: Morphine PF 30 MG/30 ML PCA Vial IV PRN ×2 (09:34→17:44)
--- NOTE | 2018-10-07 10:24 | PCM.SURGPN ---
- General Info Date of Service: 10/07/18 Date of Surgery/Procedure: 10/06/18 POD#: 1 Functional Status: Reports: Pain Controlled, Ambulating, Other - Review of Systems General: Reports: No Symptoms HEENT: Reports: No Symptoms Pulmonary: Reports: No Symptoms Cardiovascular: Reports: No Symptoms Gastrointestinal: Reports: No Symptoms - Patient Data Vitals - Most Recent: Last Vital Signs Temp 36.1 C 10/07/18 09:18 Pulse 97 10/07/18 09:18 Resp 16 10/07/18 09:18 BP 168/96 H 10/07/18 09:18 Pulse Ox 96 10/07/18 09:18 Weight - Most Recent: 142.882 kg I&O - Last 24 Hours: Intake & Output 10/06/18 10/07/18 10/07/18 22:59 06:59 14:59 Intake Total 4452 Output Total 2950 Balance 1502 Lab Results Last 24 Hrs: Laboratory Results - last 24 hr 10/06/18 10/06/18 10/06/18 Range/Units 18:03 18:03 19:23 WBC 13.89 H (4.0-11.0) K/uL RBC 5.80 (4.50-5.90) M/uL Hgb 17.8 H (13.0-17.0) g/dL Hct 49.9 (38.0-50.0) % MCV 86.0 (80.0-98.0) fL MCH 30.7 (27.0-32.0) pg MCHC 35.7 (31.0-37.0) g/dL RDW Std Deviation 40.9 (28.0-62.0) fl RDW Coeff of Loren 13 (11.0-15.0) % Plt Count 329 (150-400) K/uL MPV 9.10 (7.40-12.00) fL Neut % (Auto) 65.0 (48.0-80.0) % Lymph % (Auto) 25.1 (16.0-40.0) % [place] % (Auto) 8.6 (0.0-15.0) % Eos % (Auto) 0.9 (0.0-7.0) % Baso % (Auto) 0.4 (0.0-1.5) % Neut # (Auto) 9.0 H (1.4-5.7) K/uL Lymph # (Auto) 3.5 H (0.6-2.4) K/uL [place] # (Auto) 1.2 H (0.0-0.8) K/uL Eos # (Auto) 0.1 (0.0-0.7) K/uL Baso # (Auto) 0.1 (0.0-0.1) K/uL Nucleated RBC % 0.0 /100WBC Nucleated RBCs # 0 K/uL Sodium 139 (136-148) mmol/L Potassium 3.5 (3.5-5.1) mmol/L Chloride 103 (98-107) mmol/L Carbon Dioxide 22.6 (21.0-32.0) mmol/L BUN 19 H (7.0-18.0) mg/dL Creatinine 1.1 (0.8-1.3) mg/dL Est Cr Clr Drug Dosing 88.42 mL/min Estimated GFR (MDRD) > 60.0 ml/min Glucose 128 H (74-106) mg/dL Calcium 9.2 (8.5-10.1) mg/dL Phosphorus (2.6-4.7) mg/dL Magnesium (1.8-2.4) mg/dL Total Bilirubin 0.5 (0.2-1.0) mg/dL AST 18 (15-37) IU/L ALT 45 (14-63) IU/L Alkaline Phosphatase 80 (46-116) U/L Total Protein 8.2 (6.4-8.2) g/dL Albumin 4.3 (3.4-5.0) g/dL Globulin 3.9 (2.6-4.0) g/dL Albumin/Globulin Ratio 1.1 (0.9-1.6) Urine Color YELLOW Urine Appearance CLEAR Urine pH 5.5 (5.0-8.0) Ur Specific [place] >= 1.030 (1.001-1.035) Urine Protein 100 H (NEGATIVE) mg/dL Urine Glucose (UA) NEGATIVE (NEGATIVE) mg/dL Urine Ketones TRACE H (NEGATIVE) mg/dL Urine Occult Blood SMALL H (NEGATIVE) Urine Nitrite NEGATIVE (NEGATIVE) Urine Bilirubin NEGATIVE (NEGATIVE) Urine Urobilinogen 0.2 (<2.0) EU/dL Ur Leukocyte Esterase NEGATIVE (NEGATIVE) Urine RBC 1-2 (0-2/HPF) Urine WBC 1-2 (0-5/HPF) Ur Epithelial Cells RARE (NONE-FEW) Urine Bacteria FEW (NEGATIVE) Urine Mucus LIGHT (NONE-MOD) 10/07/18 10/07/18 Range/Units 05:51 05:51 WBC 17.78 H (4.0-11.0) K/uL RBC 5.14 (4.50-5.90) M/uL Hgb 15.7 (13.0-17.0) g/dL Hct 45.0 (38.0-50.0) % MCV 87.5 (80.0-98.0) fL MCH 30.5 (27.0-32.0) pg MCHC 34.9 (31.0-37.0) g/dL RDW Std Deviation 42.1 (28.0-62.0) fl RDW Coeff of Loren 13 (11.0-15.0) % Plt Count 257 (150-400) K/uL MPV 9.30 (7.40-12.00) fL Neut % (Auto) 90.4 H (48.0-80.0) % Lymph % (Auto) 6.0 L (16.0-40.0) % [place] % (Auto) 3.5 (0.0-15.0) % Eos % (Auto) 0.0 (0.0-7.0) % Baso % (Auto) 0.1 (0.0-1.5) % Neut # (Auto) 16.1 H (1.4-5.7) K/uL Lymph # (Auto) 1.1 (0.6-2.4) K/uL [place] # (Auto) 0.6 (0.0-0.8) K/uL Eos # (Auto) 0.0 (0.0-0.7) K/uL Baso # (Auto) 0.0 (0.0-0.1) K/uL Nucleated RBC % 0.0 /100WBC Nucleated RBCs # 0 K/uL Sodium 139 (136-148) mmol/L Potassium 4.1 (3.5-5.1) mmol/L Chloride 107 (98-107) mmol/L Carbon Dioxide 22.9 (21.0-32.0) mmol/L BUN 14 (7.0-18.0) mg/dL Creatinine 1.0 (0.8-1.3) mg/dL Est Cr Clr Drug Dosing 97.26 mL/min Estimated GFR (MDRD) > 60.0 ml/min Glucose 149 H (74-106) mg/dL Calcium 8.8 (8.5-10.1) mg/dL Phosphorus 4.2 (2.6-4.7) mg/dL Magnesium 1.9 (1.8-2.4) mg/dL Total Bilirubin (0.2-1.0) mg/dL AST (15-37) IU/L ALT (14-63) IU/L Alkaline Phosphatase (46-116) U/L Total Protein (6.4-8.2) g/dL Albumin (3.4-5.0) g/dL Globulin (2.6-4.0) g/dL Albumin/Globulin Ratio (0.9-1.6) Urine Color Urine Appearance Urine pH (5.0-8.0) Ur Specific [place] (1.001-1.035) Urine Protein (NEGATIVE) mg/dL Urine Glucose (UA) (NEGATIVE) mg/dL Urine Ketones (NEGATIVE) mg/dL Urine Occult Blood (NEGATIVE) Urine Nitrite (NEGATIVE) Urine Bilirubin (NEGATIVE) Urine Urobilinogen (<2.0) EU/dL Ur Leukocyte Esterase (NEGATIVE) Urine RBC (0-2/HPF) Urine WBC (0-5/HPF) Ur Epithelial Cells (NONE-FEW) Urine Bacteria (NEGATIVE) Urine Mucus (NONE-MOD) Med Orders - Current: Current Medications Acetaminophen (Tylenol) 650 mg RECTAL Q6H PRN PRN Reason: Fever Diphenhydramine HCl (Benadryl) 25 mg IVPUSH Q4H PRN PRN Reason: Itching Duloxetine HCl (Cymbalta) [address] [facility] Hydralazine HCl (Apresoline) 10 mg IVPUSH Q2H PRN PRN Reason: Hypertension Hydrochlorothiazide (Hydrochlorothiazide) [address] [facility] Lactated Ringer's (Ringers, Lactated) 1,000 mls @ 125 mls/hr IV ASDIRECTED [facility] Last Admin: 10/07/18 06:44 Dose: 125 mls/hr Morphine Sulfate (Morphine Art Supervisor 30 Mg In 30 Ml) 0 mg IV ASDIRECTED PRN; Protocol PRN Reason: pain Last Admin: 10/07/18 09:34 Dose: 30 mg Nicotine (Habitrol) [address] [facility] Last Admin: 10/07/18 08:39 Dose: 14 mg Pantoprazole Sodium (Protonix Iv) [address] [facility] Last Admin: 10/07/18 08:39 Dose: 40 mg Sodium Chloride (Saline Flush) 10 ml FLUSH ASDIRECTED PRN PRN Reason: Keep Vein Open Sodium Chloride (Saline Flush) 2.5 ml FLUSH ASDIRECTED PRN PRN Reason: Keep Vein Open Discontinued Medications Bupivacaine HCl (Marcaine 0.5%) Confirm Administered Dose 30 ml .ROUTE .STK-MED ONE Stop: 10/06/18 20:39 Cefazolin Sodium (Ancef) Confirm Administered Dose 1 gm .ROUTE .STK-MED ONE Stop: 10/06/18 22:19 Dexamethasone (Dexamethasone) Confirm Administered Dose 20 mg .ROUTE .STK-MED ONE Stop: 10/06/18 20:45 Diphtheria/Tetanus/Acell Pertussis (Boostrix) 0.5 ml IM .ONCE ONE Stop: 10/07/18 10:01 Ephedrine Sulfate (Ephedrine Sulfate) Confirm Administered Dose 50 mg .ROUTE .STK-MED ONE Stop: 10/06/18 22:28 Fentanyl (Sublimaze) Confirm Administered Dose 250 mcg .ROUTE .STK-MED ONE Stop: 10/06/18 20:41 Fentanyl (Sublimaze) 50 mcg IVPUSH Q5M PRN PRN Reason: Pain (severe 7-10) Stop: 10/07/18 02:00 Glycopyrrolate (Robinul) Confirm Administered Dose 0.4 mg .ROUTE .STK-MED ONE Stop: 10/06/18 21:54 Glycopyrrolate (Robinul) Confirm Administered Dose 0.2 mg .ROUTE .STK-MED ONE Stop: 10/06/18 22:58 Hydromorphone HCl (Dilaudid) 1 mg IV ONETIME ONE Stop: 10/06/18 18:16 Last Admin: 10/06/18 18:24 Dose: Not Given Hydromorphone HCl (Dilaudid) Confirm Administered Dose 1 mg .ROUTE .STK-MED ONE Stop: 10/06/18 18:18 Last Admin: 10/06/18 18:22 Dose: Not Given Hydromorphone HCl (Dilaudid) 1 mg IVPUSH ONETIME ONE Stop: 10/06/18 18:23 Last Admin: 10/06/18 18:22 Dose: 1 mg Hydromorphone HCl (Dilaudid) 1 mg IVPUSH ONETIME ONE Stop: 10/06/18 19:24 Last Admin: 10/06/18 19:31 Dose: 1 mg Hydromorphone HCl (Dilaudid) Confirm Administered Dose 2 mg .ROUTE .STK-MED ONE Stop: 10/06/18 22:11 Sodium Chloride (Normal Saline) 1,000 mls @ 999 mls/hr IV BOLUS ONE Stop: 10/06/18 18:55 Last Admin: 10/06/18 18:10 Dose: 999 mls/hr Piperacillin Sod/Tazobactam (Sod 3.375 gm/ Sodium Chloride) 50 mls @ 100 mls/ hr IV ONETIME ONE Stop: 10/06/18 21:08 Last Admin: 10/06/18 20:46 Dose: 100 mls/hr Sodium Chloride (Normal Saline) Confirm Administered Dose 20 mls @ as directed .ROUTE .STK-MED ONE Stop: 10/06/18 22:11 Acetaminophen (Ofirmev) Confirm Administered Dose 100 mls @ as directed IV .STK- MED ONE Stop: 10/06/18 23:33 Ketorolac Tromethamine (Toradol) 30 mg IVPUSH ONETIME ONE Stop: 10/06/18 18:16 Last Admin: 10/06/18 18:18 Dose: 30 mg Lidocaine (Xylocaine-Mpf 2%) Confirm Administered Dose 5 ml .ROUTE .STK-MED ONE Stop: 10/06/18 20:43 Midazolam HCl (Versed 1 Mg/Ml) Confirm Administered Dose 2 mg .ROUTE .STK-MED ONE Stop: 10/06/18 20:41 Midazolam HCl (Versed 1 Mg/Ml) Confirm Administered Dose 2 mg .ROUTE .STK-MED ONE Stop: 10/06/18 21:28 Morphine Sulfate (Morphine) 4 mg IVPUSH ONETIME ONE Stop: 10/06/18 17:56 Last Admin: 10/06/18 18:11 Dose: 4 mg Morphine Sulfate (Morphine Art Supervisor 30 Mg In 30 Ml) 30 mg IV DAILY [facility]; Protocol Morphine Sulfate (Morphine Art Supervisor 30 Mg In 30 Ml) 30 mg IV NOW STA; Protocol Stop: 10/07/18 02:23 Last Admin: 10/07/18 02:49 Dose: 30 mg Neostigmine Methylsulfate (Neostigmine) Confirm Administered Dose 5 mg .ROUTE .STK-MED ONE Stop: 10/06/18 21:54 Ondansetron HCl (Zofran) 4 mg IVPUSH ONETIME ONE Stop: 10/06/18 17:56 Last Admin: 10/06/18 18:11 Dose: 4 mg Ondansetron HCl (Zofran) Confirm Administered Dose 4 mg .ROUTE .STK-MED ONE Stop: 10/06/18 20:45 Propofol (Diprivan 20 Ml) Confirm Administered Dose 200 mg .ROUTE .STK-MED ONE Stop: 10/06/18 20:41 Rocuronium [place] (Zemuron) Confirm Administered Dose 100 mg .ROUTE .STK-MED ONE Stop: 10/06/18 20:44 Succinylcholine Chloride (Quelicin) Confirm Administered Dose 200 mg .ROUTE .STK -MED ONE Stop: 10/06/18 20:44 - Exam Wound/Incisions: Healing Well, Drainage (serous drainage) General: Alert, Oriented, Cooperative Lungs: Normal Respiratory Effort Cardiovascular: Regular Rate GI/Abdominal Exam: Soft, Non-Tender, No Distention, No Mass Extremities: Normal Inspection Skin: Warm, Dry, Intact Neurological: No New Focal Deficit Psy/Mental Status: Alert, Normal Affect, Normal Mood - Problem List & Annotations (1) Strangulated ventral incisional hernia SNOMED Code(s): 091312089 Code(s): K43.0 - INCISIONAL HERNIA WITH OBSTRUCTION, WITHOUT GANGRENE Status: Acute Current Visit: Yes - Problem List Review Problem List Initiated/Reviewed/Updated: Yes - My Orders Last 24 Hours: Active Orders 24 hr Category Date Time Status Patient Status [ADT] Routine ADT 10/06/18 23:44 Active Communication Order [RC] DAILY Care 10/06/18 23:50 Active Intake and Output [RC] QSHIFT Care 10/06/18 23:45 Active NG [Gastrointestinal Tube Mgmt] [RC] ASDIRECTED Care 10/07/18 02:20 Active Notify Provider Vital Signs [RC] PRN Care 10/06/18 23:45 Active Overnight Pulse Oximetry [RC] Click to Edit Care 10/06/18 21:03 Active Oxygen Therapy [RC] ASDIRECTED Care 10/06/18 21:04 Active Oxygen Therapy [RC] PRN Care 10/06/18 23:44 Active RT Incentive Spirometry [RC] Q1HWA Care 10/06/18 23:44 Active Remove Friedman Catheter [Urinary Catheter Removal] [RC] Care 10/07/18 10:14 Ordered Per Unit Routine Up ad Windy [RC] ASDIRECTED Care 10/06/18 23:44 Active Vaccines to be Administered [RC] PER UNIT ROUTINE Care 10/07/18 01:19 Active Vital Signs [RC] Q4H Care 10/06/18 23:44 Active BASIC METABOLIC PANEL,BMP [CHEM] AM Lab 10/08/18 05:11 Ordered BASIC METABOLIC PANEL,BMP [CHEM] AM Lab 10/09/18 05:11 Ordered CBC WITH AUTO DIFF [HEME] AM Lab 10/08/18 05:11 Ordered CBC WITH AUTO DIFF [HEME] AM Lab 10/09/18 05:11 Ordered CBC WITH AUTO DIFF [HEME] AM Lab 10/10/18 05:11 Ordered CBC WITH AUTO DIFF [HEME] AM Lab 10/11/18 05:11 Ordered MAGNESIUM [CHEM] AM Lab 10/08/18 05:11 Ordered MAGNESIUM [CHEM] AM Lab 10/09/18 05:11 Ordered PHOSPHORUS [CHEM] AM Lab 10/08/18 05:11 Ordered PHOSPHORUS [CHEM] AM Lab 10/09/18 05:11 Ordered Acetaminophen [Tylenol] Med 10/06/18 23:44 Active 650 mg RECTAL Q6H PRN DULoxetine [Cymbalta] Med 10/07/18 10:15 Ordered 60 mg PO DAILY Lactated Ringers [Ringers, Lactated] 1,000 ml Med 10/06/18 23:45 Active IV ASDIRECTED Morphine PF [Morphine SOCIAL SERVICES ANALYST 30 MG in 30 ML] Med 10/07/18 09:20 Active 0 mg IV ASDIRECTED PRN Nicotine [Habitrol] Med 10/07/18 09:00 Active 14 mg TRDERM DAILY Pantoprazole [ProTONIX IV] Med 10/07/18 09:00 Active 40 mg IVPUSH DAILY Sodium Chloride 0.9% [Saline Flush] Med 10/06/18 23:44 Active 10 ml FLUSH ASDIRECTED PRN Sodium Chloride 0.9% [Saline Flush] Med 10/06/18 23:44 Active 2.5 ml FLUSH ASDIRECTED PRN diphenhydrAMINE [Benadryl] Med 10/06/18 23:44 Active 25 mg IVPUSH Q4H PRN hydrALAZINE [Apresoline] Med 10/06/18 23:48 Active 10 mg IVPUSH Q2H PRN hydroCHLOROthiazide Med 10/07/18 10:15 Ordered 25 mg PO DAILY Peripheral IV Insertion Adult [OM.PC] Urgent Oth 10/06/18 23:44 Ordered Resuscitation Status Routine Resus Stat 10/06/18 23:44 Ordered Medication Orders Acetaminophen (Tylenol) 650 mg RECTAL Q6H PRN PRN Reason: Fever Diphenhydramine HCl (Benadryl) 25 mg IVPUSH Q4H PRN PRN Reason: Itching Duloxetine HCl (Cymbalta) [address] [facility] Hydralazine HCl (Apresoline) 10 mg IVPUSH Q2H PRN PRN Reason: Hypertension Hydrochlorothiazide (Hydrochlorothiazide) [address] [facility] Lactated Ringer's (Ringers, Lactated) 1,000 mls @ 125 mls/hr IV ASDIRECTED [facility] Last Admin: 10/07/18 06:44 Dose: 125 mls/hr Morphine Sulfate (Morphine Art Supervisor 30 Mg In 30 Ml) 0 mg IV ASDIRECTED PRN; Protocol PRN Reason: pain Last Admin: 10/07/18 09:34 Dose: 30 mg Nicotine (Habitrol) [address] [facility] Last Admin: 10/07/18 08:39 Dose: 14 mg Pantoprazole Sodium (Protonix Iv) [address] [facility] Last Admin: 10/07/18 08:39 Dose: 40 mg Sodium Chloride (Saline Flush) 10 ml FLUSH ASDIRECTED PRN PRN Reason: Keep Vein Open Sodium Chloride (Saline Flush) 2.5 ml FLUSH ASDIRECTED PRN PRN Reason: Keep Vein Open - Plan Plan (Free Text/Narrative):: Pain: Morphine SOCIAL SERVICES ANALYST controlling pain well. CV: hypertensive since he has been off his medications. Heart rate normal. Will try giving HCTZ and clamping NG. Hydralazine as needed for hypertension. Pulm: Enouraged OOB activity and IS use. Uses CPAP at home but doesnt fit with NG tube in place. GI: NG with high output. Not unexpected given the strangulated piece of bowel is likely very swollen. Will keep in place until NG output decreases. Renal: BUN/Cr normal. UOP adequate. Remove friedman Heme: Hemoglobin stable. ID: WBC and neutrophil count higher today likely due to the decompressed bowel and stress of surgery. Will keep on zosyn for now Px: IV protonix since he will not be eating for next several days and lovenox
[2018-10-07] MEDS: Hydrochlorothiazide 25 MG Tab PO SCH (11:04)
[2018-10-07] MEDS: DULoxetine 60 MG Cap PO SCH (11:04)
[2018-10-07] MEDS: Enoxaparin 40 MG/0.4 ML Syringe SUBCUT SCH (11:05)
[2018-10-07] MEDS ORDERED: Scopolamine 1.5 MG Transdermal Patch TRDERM PRN (13:16)
[2018-10-07] MEDS: Ondansetron 4 MG/2 ML SDV IVPUSH PRN (13:32)
[2018-10-07] MEDS: Promethazine 25 MG/ML SDV IM PRN (17:40)
[2018-10-07] MEDS: Ketorolac 15 MG/ML SDV IVPUSH SCH (19:49)
[2018-10-08] MEDS: diphenhydrAMINE 50 MG/ML SDV IVPUSH PRN ×3 (00:17→17:14)
[2018-10-08] MEDS: Lactated Ringers 1,000 ML IV SCH ×3 (00:17→17:20)
[2018-10-08] MEDS: Morphine PF 30 MG/30 ML PCA Vial IV PRN ×2 (00:45→13:06)
[2018-10-08] MEDS: Ketorolac 15 MG/ML SDV IVPUSH SCH ×4 (01:14→20:18)
[2018-10-08 07:05] LABS: CHLORIDE,CL 107 mmol/L (98-107); SODIUM,NA 144 mmol/L (136-148)
[2018-10-08] MEDS: Pantoprazole 40 MG Vial IVPUSH SCH (08:10)
[2018-10-08] MEDS: Ondansetron 4 MG/2 ML SDV IVPUSH PRN ×2 (08:10→20:03)
[2018-10-08] MEDS: Nicotine 14 MG/24 Hr Patch TRDERM SCH (08:18)
[2018-10-08] MEDS: DULoxetine 60 MG Cap PO SCH (08:19)
[2018-10-08] MEDS: Hydrochlorothiazide 25 MG Tab PO SCH (08:19)
--- NOTE | 2018-10-08 10:57 | PCM.SURGPN ---
- General Info Date of Service: 10/08/18 Date of Surgery/Procedure: 10/06/18 POD#: 2 Functional Status: Reports: Pain Controlled, Other (Patient had breakthrough pain yesterday. Schedule IV toradol with good pain relief. NG output appears more clear. Patient feels bowels moving. No flatus yet. ) - Review of Systems General: Reports: No Symptoms HEENT: Reports: No Symptoms Pulmonary: Reports: No Symptoms Cardiovascular: Reports: No Symptoms Gastrointestinal: Reports: No Symptoms Genitourinary: Reports: No Symptoms Musculoskeletal: Reports: No Symptoms - Patient Data Vitals - Most Recent: Last Vital Signs Temp 37.1 C 10/08/18 08:00 Pulse 87 10/08/18 08:00 Resp 16 10/08/18 08:00 BP 149/95 H 10/08/18 08:00 Pulse Ox 92 L 10/08/18 08:00 Weight - Most Recent: 142.882 kg I&O - Last 24 Hours: Intake & Output 10/07/18 10/08/18 10/08/18 22:59 06:59 14:59 Intake Total 1349 1571 Output Total 1850 1900 Balance -501 -337 Lab Results Last 24 Hrs: Laboratory Results - last 24 hr 10/08/18 10/08/18 Range/Units 06:12 06:12 WBC 13.42 H (4.0-11.0) K/uL RBC 5.04 (4.50-5.90) M/uL Hgb 15.3 (13.0-17.0) g/dL Hct 45.1 (38.0-50.0) % MCV 89.5 (80.0-98.0) fL MCH 30.4 (27.0-32.0) pg MCHC 33.9 (31.0-37.0) g/dL RDW Std Deviation 43.2 (28.0-62.0) fl RDW Coeff of Loren 13 (11.0-15.0) % Plt Count 258 (150-400) K/uL MPV 9.30 (7.40-12.00) fL Neut % (Auto) 68.9 (48.0-80.0) % Lymph % (Auto) 20.4 (16.0-40.0) % [place] % (Auto) 10.2 (0.0-15.0) % Eos % (Auto) 0.4 (0.0-7.0) % Baso % (Auto) 0.1 (0.0-1.5) % Neut # (Auto) 9.2 H (1.4-5.7) K/uL Lymph # (Auto) 2.7 H (0.6-2.4) K/uL [place] # (Auto) 1.4 H (0.0-0.8) K/uL Eos # (Auto) 0.1 (0.0-0.7) K/uL Baso # (Auto) 0.0 (0.0-0.1) K/uL Nucleated RBC % 0.0 /100WBC Nucleated RBCs # 0 K/uL Sodium 144 (136-148) mmol/L Potassium 3.5 (3.5-5.1) mmol/L Chloride 107 (98-107) mmol/L Carbon Dioxide 25.6 (21.0-32.0) mmol/L BUN 17 (7.0-18.0) mg/dL Creatinine 1.0 (0.8-1.3) mg/dL Est Cr Clr Drug Dosing 97.26 mL/min Estimated GFR (MDRD) > 60.0 ml/min Glucose 108 H (74-106) mg/dL Calcium 8.7 (8.5-10.1) mg/dL Phosphorus 2.7 (2.6-4.7) mg/dL Magnesium 2.0 (1.8-2.4) mg/dL Med Orders - Current: Current Medications Acetaminophen (Tylenol) 650 mg RECTAL Q6H PRN PRN Reason: Fever Diphenhydramine HCl (Benadryl) 25 mg IVPUSH Q4H PRN PRN Reason: Itching Last Admin: 10/08/18 03:56 Dose: 25 mg Duloxetine HCl (Cymbalta) 60 mg PO DAILY [facility] Last Admin: 10/08/18 08:19 Dose: 60 mg Enoxaparin Sodium (Lovenox) 40 mg SUBCUT Q24H [facility] Last Admin: 10/07/18 11:05 Dose: 40 mg Hydralazine HCl (Apresoline) 10 mg IVPUSH Q2H PRN PRN Reason: Hypertension Hydrochlorothiazide (Hydrochlorothiazide) 25 mg PO DAILY [facility] Last Admin: 10/08/18 08:19 Dose: 25 mg Lactated Ringer's (Ringers, Lactated) 1,000 mls @ 125 mls/hr IV ASDIRECTED [facility] Last Admin: 10/08/18 09:30 Dose: 125 mls/hr Ketorolac Tromethamine (Toradol) 15 mg IVPUSH Q6H [facility] Stop: 10/12/18 18:51 Last Admin: 10/08/18 08:17 Dose: 15 mg Morphine Sulfate (Morphine [employer] 30 Mg In 30 Ml) 0 mg IV ASDIRECTED PRN; Protocol PRN Reason: pain Last Admin: 10/08/18 00:45 Dose: 30 mg Nicotine (Habitrol) 14 mg TRDERM DAILY [facility] Last Admin: 10/08/18 08:18 Dose: 14 mg Ondansetron HCl (Zofran) 4 mg IVPUSH Q6H PRN PRN Reason: Nausea/Vomiting Last Admin: 10/08/18 08:10 Dose: 4 mg Pantoprazole Sodium (Protonix Iv) 40 mg IVPUSH DAILY [facility] Last Admin: 10/08/18 08:10 Dose: 40 mg Promethazine HCl (Phenergan) 25 mg IM Q6H PRN PRN Reason: Nausea/Vomiting Last Admin: 10/07/18 17:40 Dose: 25 mg Scopolamine (Transderm-Scop) 1.5 mg TRDERM Q72H PRN PRN Reason: Nausea/Vomiting Last Admin: 10/07/18 13:39 Dose: 1.5 mg Sodium Chloride (Saline Flush) 10 ml FLUSH ASDIRECTED PRN PRN Reason: Keep Vein Open Sodium Chloride (Saline Flush) 2.5 ml FLUSH ASDIRECTED PRN PRN Reason: Keep Vein Open Discontinued Medications Bupivacaine HCl (Marcaine 0.5%) Confirm Administered Dose 30 ml .ROUTE .STK-MED ONE Stop: 10/06/18 20:39 Cefazolin Sodium (Ancef) Confirm Administered Dose 1 gm .ROUTE .STK-MED ONE Stop: 10/06/18 22:19 Dexamethasone (Dexamethasone) Confirm Administered Dose 20 mg .ROUTE .STK-MED ONE Stop: 10/06/18 20:45 Diphtheria/Tetanus/Acell Pertussis (Boostrix) 0.5 ml IM .ONCE ONE Stop: 10/07/18 10:01 Ephedrine Sulfate (Ephedrine Sulfate) Confirm Administered Dose 50 mg .ROUTE .STK-MED ONE Stop: 10/06/18 22:28 Fentanyl (Sublimaze) Confirm Administered Dose 250 mcg .ROUTE .STK-MED ONE Stop: 10/06/18 20:41 Fentanyl (Sublimaze) 50 mcg IVPUSH Q5M PRN PRN Reason: Pain (severe 7-10) Stop: 10/07/18 02:00 Glycopyrrolate (Robinul) Confirm Administered Dose 0.4 mg .ROUTE .STK-MED ONE Stop: 10/06/18 21:54 Glycopyrrolate (Robinul) Confirm Administered Dose 0.2 mg .ROUTE .STK-MED ONE Stop: 10/06/18 22:58 Hydromorphone HCl (Dilaudid) 1 mg IV ONETIME ONE Stop: 10/06/18 18:16 Last Admin: 10/06/18 18:24 Dose: Not Given Hydromorphone HCl (Dilaudid) Confirm Administered Dose 1 mg .ROUTE .STK-MED ONE Stop: 10/06/18 18:18 Last Admin: 10/06/18 18:22 Dose: Not Given Hydromorphone HCl (Dilaudid) 1 mg IVPUSH ONETIME ONE Stop: 10/06/18 18:23 Last Admin: 10/06/18 18:22 Dose: 1 mg Hydromorphone HCl (Dilaudid) 1 mg IVPUSH ONETIME ONE Stop: 10/06/18 19:24 Last Admin: 10/06/18 19:31 Dose: 1 mg Hydromorphone HCl (Dilaudid) Confirm Administered Dose 2 mg .ROUTE .STK-MED ONE Stop: 10/06/18 22:11 Sodium Chloride (Normal Saline) 1,000 mls @ 999 mls/hr IV BOLUS ONE Stop: 10/06/18 18:55 Last Admin: 10/06/18 18:10 Dose: 999 mls/hr Piperacillin Sod/Tazobactam (Sod 3.375 gm/ Sodium Chloride) 50 mls @ 100 mls/ hr IV ONETIME ONE Stop: 10/06/18 21:08 Last Admin: 10/06/18 20:46 Dose: 100 mls/hr Sodium Chloride (Normal Saline) Confirm Administered Dose 20 mls @ as directed .ROUTE .STK-MED ONE Stop: 10/06/18 22:11 Acetaminophen (Ofirmev) Confirm Administered Dose 100 mls @ as directed IV .STK- MED ONE Stop: 10/06/18 23:33 Ketorolac Tromethamine (Toradol) 30 mg IVPUSH ONETIME ONE Stop: 10/06/18 18:16 Last Admin: 10/06/18 18:18 Dose: 30 mg Lidocaine (Xylocaine-Mpf 2%) Confirm Administered Dose 5 ml .ROUTE .STK-MED ONE Stop: 10/06/18 20:43 Midazolam HCl (Versed 1 Mg/Ml) Confirm Administered Dose 2 mg .ROUTE .STK-MED ONE Stop: 10/06/18 20:41 Midazolam HCl (Versed 1 Mg/Ml) Confirm Administered Dose 2 mg .ROUTE .STK-MED ONE Stop: 10/06/18 21:28 Morphine Sulfate (Morphine) 4 mg IVPUSH ONETIME ONE Stop: 10/06/18 17:56 Last Admin: 10/06/18 18:11 Dose: 4 mg Morphine Sulfate (Morphine [employer] 30 Mg In 30 Ml) 30 mg IV DAILY [facility]; Protocol Morphine Sulfate (Morphine [employer] 30 Mg In 30 Ml) 30 mg IV NOW STA; Protocol Stop: 10/07/18 02:23 Last Admin: 10/07/18 02:49 Dose: 30 mg Neostigmine Methylsulfate (Neostigmine) Confirm Administered Dose 5 mg .ROUTE .STK-MED ONE Stop: 10/06/18 21:54 Ondansetron HCl (Zofran) 4 mg IVPUSH ONETIME ONE Stop: 10/06/18 17:56 Last Admin: 10/06/18 18:11 Dose: 4 mg Ondansetron HCl (Zofran) Confirm Administered Dose 4 mg .ROUTE .STK-MED ONE Stop: 10/06/18 20:45 Propofol (Diprivan 20 Ml) Confirm Administered Dose 200 mg .ROUTE .STK-MED ONE Stop: 10/06/18 20:41 Rocuronium [place] (Zemuron) Confirm Administered Dose 100 mg .ROUTE .STK-MED ONE Stop: 10/06/18 20:44 Succinylcholine Chloride (Quelicin) Confirm Administered Dose 200 mg .ROUTE .STK -MED ONE Stop: 10/06/18 20:44 - Exam Wound/Incisions: Other (Dressings removed today. There is some bruising along the upper aspect of the umbilical fold. No signs of infection or wound breakdown. ) General: Alert, Oriented Lungs: Normal Respiratory Effort Cardiovascular: Regular Rate GI/Abdominal Exam: Normal Bowel Sounds, Soft, Non-Tender, No Distention, No Mass - Problem List & Annotations (1) Strangulated ventral incisional hernia SNOMED Code(s): 264494059 Code(s): K43.0 - INCISIONAL HERNIA WITH OBSTRUCTION, WITHOUT GANGRENE Status: Acute Current Visit: Yes - Problem List Review Problem List Initiated/Reviewed/Updated: Yes - My Orders Last 24 Hours: Active Orders 24 hr Category Date Time Status BASIC METABOLIC PANEL,BMP [CHEM] AM Lab 10/09/18 05:11 Ordered CBC WITH AUTO DIFF [HEME] AM Lab 10/09/18 05:11 Ordered CBC WITH AUTO DIFF [HEME] AM Lab 10/10/18 05:11 Ordered CBC WITH AUTO DIFF [HEME] AM Lab 10/11/18 05:11 Ordered MAGNESIUM [CHEM] AM Lab 10/09/18 05:11 Ordered PHOSPHORUS [CHEM] AM Lab 10/09/18 05:11 Ordered DULoxetine [Cymbalta] Med 10/07/18 10:15 Active 60 mg PO DAILY Enoxaparin [Lovenox] Med 10/07/18 10:30 Active 40 mg SUBCUT Q24H Ketorolac [Toradol] Med 10/07/18 20:00 Active 15 mg IVPUSH Q6H Ondansetron [Zofran] Med 10/07/18 13:15 Active 4 mg IVPUSH Q6H PRN Promethazine [Phenergan] Med 10/07/18 13:15 Active 25 mg IM Q6H PRN Scopolamine [Transderm-Scop] Med 10/07/18 13:16 Active 1.5 mg TRDERM Q72H PRN hydroCHLOROthiazide Med 10/07/18 10:15 Active 25 mg PO DAILY Medication Orders Acetaminophen (Tylenol) 650 mg RECTAL Q6H PRN PRN Reason: Fever Diphenhydramine HCl (Benadryl) 25 mg IVPUSH Q4H PRN PRN Reason: Itching Last Admin: 10/08/18 03:56 Dose: 25 mg Admin: 10/08/18 00:17 Dose: 25 mg Duloxetine HCl (Cymbalta) 60 mg PO DAILY [facility] Last Admin: 10/08/18 08:19 Dose: 60 mg Admin: 10/07/18 11:04 Dose: 60 mg Enoxaparin Sodium (Lovenox) 40 mg SUBCUT Q24H [facility] Last Admin: 10/07/18 11:05 Dose: 40 mg Hydralazine HCl (Apresoline) 10 mg IVPUSH Q2H PRN PRN Reason: Hypertension Hydrochlorothiazide (Hydrochlorothiazide) 25 mg PO DAILY [facility] Last Admin: 10/08/18 08:19 Dose: 25 mg Admin: 10/07/18 11:04 Dose: 25 mg Lactated Ringer's (Ringers, Lactated) 1,000 mls @ 125 mls/hr IV ASDIRECTED [facility] Last Admin: 10/08/18 09:30 Dose: 125 mls/hr Infusion: 10/08/18 08:17 Dose: 125 mls/hr Admin: 10/08/18 00:17 Dose: 125 mls/hr Infusion: 10/07/18 23:49 Dose: 125 mls/hr Admin: 10/07/18 15:49 Dose: 125 mls/hr Infusion: 10/07/18 14:44 Dose: 125 mls/hr Admin: 10/07/18 06:44 Dose: 125 mls/hr Ketorolac Tromethamine (Toradol) 15 mg IVPUSH Q6H [facility] Stop: 10/12/18 18:51 Last Admin: 10/08/18 08:17 Dose: 15 mg Admin: 10/08/18 01:14 Dose: 15 mg Admin: 10/07/18 19:49 Dose: 15 mg Morphine Sulfate (Morphine [employer] 30 Mg In 30 Ml) 0 mg IV ASDIRECTED PRN; Protocol PRN Reason: pain Last Admin: 10/08/18 00:45 Dose: 30 mg Admin: 10/07/18 17:44 Dose: 30 mg Admin: 10/07/18 09:34 Dose: 30 mg Nicotine (Habitrol) 14 mg TRDERM DAILY [facility] Last Admin: 10/08/18 08:18 Dose: 14 mg Admin: 10/07/18 08:39 Dose: 14 mg Ondansetron HCl (Zofran) 4 mg IVPUSH Q6H PRN PRN Reason: Nausea/Vomiting Last Admin: 10/08/18 08:10 Dose: 4 mg Admin: 10/07/18 13:32 Dose: 4 mg Pantoprazole Sodium (Protonix Iv) 40 mg IVPUSH DAILY [facility] Last Admin: 10/08/18 08:10 Dose: 40 mg Admin: 10/07/18 08:39 Dose: 40 mg Promethazine HCl (Phenergan) 25 mg IM Q6H PRN PRN Reason: Nausea/Vomiting Last Admin: 10/07/18 17:40 Dose: 25 mg Scopolamine (Transderm-Scop) 1.5 mg TRDERM Q72H PRN PRN Reason: Nausea/Vomiting Last Admin: 10/07/18 13:39 Dose: 1.5 mg Sodium Chloride (Saline Flush) 10 ml FLUSH ASDIRECTED PRN PRN Reason: Keep Vein Open Sodium Chloride (Saline Flush) 2.5 ml FLUSH ASDIRECTED PRN PRN Reason: Keep Vein Open - Plan Plan (Free Text/Narrative):: -NG output still high, however it appears clearer today. Bowel sounds are good. White count improving. Pain: IV toradol scheduled. Morphine POLICY ISSUE CLERK prn CV/Pulm: patient walking around unit multiple times per day. Vitals stable. Continue home meds GI: No flatus and NG output still high. Continue NPO and NG to lower intermittent suction. Renal: UOP good. BUN/Cr normal. Mag phos and electrolytes WNL. ID: Continue zosyn until WBC within normal limits. Heme: Stable Px: Lovenox and Pantoprazole
[2018-10-08] MEDS: Enoxaparin 40 MG/0.4 ML Syringe SUBCUT SCH (11:33)
[2018-10-08] MEDS: Phenol 1.4% Oral Spray 177 ML Bottle MUCMEM PRN (17:13)
[2018-10-08] MEDS: hydrALAZINE 20 MG/ML SDV IVPUSH PRN (17:33)
[2018-10-09] MEDS: Lactated Ringers 1,000 ML IV SCH ×3 (01:17→19:32)
[2018-10-09] MEDS: Ondansetron 4 MG/2 ML SDV IVPUSH PRN (01:17)
[2018-10-09] MEDS: Ketorolac 15 MG/ML SDV IVPUSH SCH ×4 (01:21→20:46)
[2018-10-09] MEDS: Phenol 1.4% Oral Spray 177 ML Bottle MUCMEM PRN (01:22)
[2018-10-09] MEDS: diphenhydrAMINE 50 MG/ML SDV IVPUSH PRN ×4 (01:22→20:46)
[2018-10-09] MEDS: Morphine PF 30 MG/30 ML PCA Vial IV PRN ×3 (02:08→23:36)
[2018-10-09] MEDS: Promethazine 25 MG/ML SDV IM PRN (04:52)
--- NOTE | 2018-10-09 06:14 | CR ---
Indication: Tube placement. Technique: Abdomen 1 view. Comparison: October 06, 2018. Impression: NG tube is in the gastric fundus and could be advanced an additional 10-15 cm if able. No acute abnormalities. Dictated by Raymundo Villanueva MD @ Oct 09 2018 6:09AM Signed by Dr. Raymundo Villanueva @ Oct 09 2018 6:11AM
[2018-10-09 06:30] LABS: CHLORIDE,CL 103 mmol/L (98-107); SODIUM,NA 140 mmol/L (136-148)
[2018-10-09] MEDS: Pantoprazole 40 MG Vial IVPUSH SCH (08:06)
[2018-10-09] MEDS: Nicotine 14 MG/24 Hr Patch TRDERM SCH (08:07)
[2018-10-09] MEDS: Hydrochlorothiazide 25 MG Tab PO SCH (08:07)
[2018-10-09] MEDS: DULoxetine 60 MG Cap PO SCH (08:07)
[2018-10-09] MEDS: Enoxaparin 40 MG/0.4 ML Syringe SUBCUT SCH (11:08)
--- NOTE | 2018-10-09 14:51 | PCM.SURGPN ---
- General Info Date of Service: 10/09/18 Date of Surgery/Procedure: 10/06/18 POD#: 3 - Review of Systems General: Reports: Weakness. Denies: Fever, Malaise, Chills HEENT: Reports: No Symptoms Pulmonary: Reports: No Symptoms Cardiovascular: Reports: No Symptoms Gastrointestinal: Reports: Flatus. Denies: Abdominal Pain Genitourinary: Reports: No Symptoms Musculoskeletal: Reports: No Symptoms Skin: Reports: Bruising (nuris-incisional ) - Patient Data Vitals - Most Recent: Last Vital Signs Temp 36.7 C 10/09/18 11:50 Pulse 79 10/09/18 11:50 Resp 20 10/09/18 11:50 BP 153/90 H 10/09/18 11:50 Pulse Ox 95 10/09/18 11:50 Weight - Most Recent: 142.882 kg I&O - Last 24 Hours: Intake & Output 10/08/18 10/09/18 10/09/18 22:59 06:59 14:59 Intake Total 1397 Output Total 1430 2750 Balance -33 -2750 Lab Results Last 24 Hrs: Laboratory Results - last 24 hr 10/09/18 10/09/18 Range/Units 05:51 05:51 WBC 13.61 H (4.0-11.0) K/uL RBC 5.21 (4.50-5.90) M/uL Hgb 15.9 (13.0-17.0) g/dL Hct 45.8 (38.0-50.0) % MCV 87.9 (80.0-98.0) fL MCH 30.5 (27.0-32.0) pg MCHC 34.7 (31.0-37.0) g/dL RDW Std Deviation 41.2 (28.0-62.0) fl RDW Coeff of Loren 13 (11.0-15.0) % Plt Count 268 (150-400) K/uL MPV 9.00 (7.40-12.00) fL Neut % (Auto) 65.7 (48.0-80.0) % Lymph % (Auto) 22.3 (16.0-40.0) % Blair % (Auto) 10.2 (0.0-15.0) % Eos % (Auto) 1.5 (0.0-7.0) % Baso % (Auto) 0.3 (0.0-1.5) % Neut # (Auto) 8.9 H (1.4-5.7) K/uL Lymph # (Auto) 3.0 H (0.6-2.4) K/uL Blair # (Auto) 1.4 H (0.0-0.8) K/uL Eos # (Auto) 0.2 (0.0-0.7) K/uL Baso # (Auto) 0.0 (0.0-0.1) K/uL Nucleated RBC % 0.0 /100WBC Nucleated RBCs # 0 K/uL Sodium 140 (136-148) mmol/L Potassium 3.6 (3.5-5.1) mmol/L Chloride 103 (98-107) mmol/L Carbon Dioxide 25.9 (21.0-32.0) mmol/L BUN 13 (7.0-18.0) mg/dL Creatinine 0.8 (0.8-1.3) mg/dL Est Cr Clr Drug Dosing 121.58 mL/min Estimated GFR (MDRD) > 60.0 ml/min Glucose 98 (74-106) mg/dL Calcium 8.6 (8.5-10.1) mg/dL Phosphorus 2.7 (2.6-4.7) mg/dL Magnesium 2.0 (1.8-2.4) mg/dL Med Orders - Current: Current Medications Acetaminophen (Tylenol) 650 mg RECTAL Q6H PRN PRN Reason: Fever Diphenhydramine HCl (Benadryl) 50 mg IVPUSH Q4H PRN PRN Reason: Itching Last Admin: 10/09/18 14:14 Dose: 50 mg Duloxetine HCl (Cymbalta) 60 mg PO DAILY [facility] Last Admin: 10/09/18 08:07 Dose: 60 mg Enoxaparin Sodium (Lovenox) 40 mg SUBCUT Q24H [facility] Last Admin: 10/09/18 11:08 Dose: 40 mg Hydralazine HCl (Apresoline) 10 mg IVPUSH Q2H PRN PRN Reason: Hypertension Last Admin: 10/08/18 17:33 Dose: 10 mg Hydrochlorothiazide (Hydrochlorothiazide) 25 mg PO DAILY [facility] Last Admin: 10/09/18 08:07 Dose: 25 mg Lactated Ringer's (Ringers, Lactated) 1,000 mls @ 125 mls/hr IV ASDIRECTED [facility] Last Admin: 10/09/18 11:06 Dose: 125 mls/hr Ketorolac Tromethamine (Toradol) 15 mg IVPUSH Q6H [facility] Stop: 10/12/18 18:51 Last Admin: 10/09/18 14:14 Dose: 15 mg Morphine Sulfate (Morphine Steel Layer 30 Mg In 30 Ml) 0 mg IV ASDIRECTED PRN; Protocol PRN Reason: pain Last Admin: 10/09/18 12:39 Dose: 30 mg Nicotine (Habitrol) 14 mg TRDERM DAILY [facility] Last Admin: 10/09/18 08:07 Dose: 14 mg Ondansetron HCl (Zofran) 4 mg IVPUSH Q6H PRN PRN Reason: Nausea/Vomiting Last Admin: 10/09/18 01:17 Dose: 4 mg Pantoprazole Sodium (Protonix Iv) 40 mg IVPUSH DAILY [facility] Last Admin: 10/09/18 08:06 Dose: 40 mg Phenol/Menthol (Chloraseptic Throat [place]) 1 ml MUCMEM Q4H PRN PRN Reason: Sore Throat Last Admin: 10/09/18 01:22 Dose: 1 spray Promethazine HCl (Phenergan) 25 mg IM Q6H PRN PRN Reason: Nausea/Vomiting Last Admin: 10/09/18 04:52 Dose: 25 mg Scopolamine (Transderm-Scop) 1.5 mg TRDERM Q72H PRN PRN Reason: Nausea/Vomiting Last Admin: 10/07/18 13:39 Dose: 1.5 mg Sodium Chloride (Saline Flush) 10 ml FLUSH ASDIRECTED PRN PRN Reason: Keep Vein Open Sodium Chloride (Saline Flush) 2.5 ml FLUSH ASDIRECTED PRN PRN Reason: Keep Vein Open Discontinued Medications Bupivacaine HCl (Marcaine 0.5%) Confirm Administered Dose 30 ml .ROUTE .STK-MED ONE Stop: 10/06/18 20:39 Cefazolin Sodium (Ancef) Confirm Administered Dose 1 gm .ROUTE .STK-MED ONE Stop: 10/06/18 22:19 Dexamethasone (Dexamethasone) Confirm Administered Dose 20 mg .ROUTE .STK-MED ONE Stop: 10/06/18 20:45 Diphenhydramine HCl (Benadryl) 25 mg IVPUSH Q4H PRN PRN Reason: Itching Last Admin: 10/08/18 03:56 Dose: 25 mg Diphtheria/Tetanus/Acell Pertussis (Boostrix) 0.5 ml IM .ONCE ONE Stop: 10/07/18 10:01 Last Admin: 10/08/18 11:13 Dose: Not Given Ephedrine Sulfate (Ephedrine Sulfate) Confirm Administered Dose 50 mg .ROUTE .STK-MED ONE Stop: 10/06/18 22:28 Fentanyl (Sublimaze) Confirm Administered Dose 250 mcg .ROUTE .STK-MED ONE Stop: 10/06/18 20:41 Fentanyl (Sublimaze) 50 mcg IVPUSH Q5M PRN PRN Reason: Pain (severe 7-10) Stop: 10/07/18 02:00 Glycopyrrolate (Robinul) Confirm Administered Dose 0.4 mg .ROUTE .STK-MED ONE Stop: 10/06/18 21:54 Glycopyrrolate (Robinul) Confirm Administered Dose 0.2 mg .ROUTE .STK-MED ONE Stop: 10/06/18 22:58 Hydromorphone HCl (Dilaudid) 1 mg IV ONETIME ONE Stop: 10/06/18 18:16 Last Admin: 10/06/18 18:24 Dose: Not Given Hydromorphone HCl (Dilaudid) Confirm Administered Dose 1 mg .ROUTE .STK-MED ONE Stop: 10/06/18 18:18 Last Admin: 10/06/18 18:22 Dose: Not Given Hydromorphone HCl (Dilaudid) 1 mg IVPUSH ONETIME ONE Stop: 10/06/18 18:23 Last Admin: 10/06/18 18:22 Dose: 1 mg Hydromorphone HCl (Dilaudid) 1 mg IVPUSH ONETIME ONE Stop: 10/06/18 19:24 Last Admin: 10/06/18 19:31 Dose: 1 mg Hydromorphone HCl (Dilaudid) Confirm Administered Dose 2 mg .ROUTE .STK-MED ONE Stop: 10/06/18 22:11 Sodium Chloride (Normal Saline) 1,000 mls @ 999 mls/hr IV BOLUS ONE Stop: 10/06/18 18:55 Last Admin: 10/06/18 18:10 Dose: 999 mls/hr Piperacillin Sod/Tazobactam (Sod 3.375 gm/ Sodium Chloride) 50 mls @ 100 mls/ hr IV ONETIME ONE Stop: 10/06/18 21:08 Last Admin: 10/06/18 20:46 Dose: 100 mls/hr Sodium Chloride (Normal Saline) Confirm Administered Dose 20 mls @ as directed .ROUTE .STK-MED ONE Stop: 10/06/18 22:11 Acetaminophen (Ofirmev) Confirm Administered Dose 100 mls @ as directed IV .STK- MED ONE Stop: 10/06/18 23:33 Ketorolac Tromethamine (Toradol) 30 mg IVPUSH ONETIME ONE Stop: 10/06/18 18:16 Last Admin: 10/06/18 18:18 Dose: 30 mg Lidocaine (Xylocaine-Mpf 2%) Confirm Administered Dose 5 ml .ROUTE .STK-MED ONE Stop: 10/06/18 20:43 Midazolam HCl (Versed 1 Mg/Ml) Confirm Administered Dose 2 mg .ROUTE .STK-MED ONE Stop: 10/06/18 20:41 Midazolam HCl (Versed 1 Mg/Ml) Confirm Administered Dose 2 mg .ROUTE .STK-MED ONE Stop: 10/06/18 21:28 Morphine Sulfate (Morphine) 4 mg IVPUSH ONETIME ONE Stop: 10/06/18 17:56 Last Admin: 10/06/18 18:11 Dose: 4 mg Morphine Sulfate (Morphine Steel Layer 30 Mg In 30 Ml) 30 mg IV DAILY [facility]; Protocol Morphine Sulfate (Morphine Steel Layer 30 Mg In 30 Ml) 30 mg IV NOW STA; Protocol Stop: 10/07/18 02:23 Last Admin: 10/07/18 02:49 Dose: 30 mg Neostigmine Methylsulfate (Neostigmine) Confirm Administered Dose 5 mg .ROUTE .STK-MED ONE Stop: 10/06/18 21:54 Ondansetron HCl (Zofran) 4 mg IVPUSH ONETIME ONE Stop: 10/06/18 17:56 Last Admin: 10/06/18 18:11 Dose: 4 mg Ondansetron HCl (Zofran) Confirm Administered Dose 4 mg .ROUTE .STK-MED ONE Stop: 10/06/18 20:45 Propofol (Diprivan 20 Ml) Confirm Administered Dose 200 mg .ROUTE .STK-MED ONE Stop: 10/06/18 20:41 Rocuronium [place] (Zemuron) Confirm Administered Dose 100 mg .ROUTE .STK-MED ONE Stop: 10/06/18 20:44 Succinylcholine Chloride (Quelicin) Confirm Administered Dose 200 mg .ROUTE .STK -MED ONE Stop: 10/06/18 20:44 - Exam Wound/Incisions: Healing Well, Other (Dependent bruising below the incision. Stable bruisng along the right lateral umbilical fold. ) General: Alert, Oriented, Cooperative Lungs: Normal Respiratory Effort Cardiovascular: Regular Rate GI/Abdominal Exam: Soft, Non-Tender, No Distention, No Mass, Other (NG with bilious output ) Extremities: Normal Inspection, Normal Range of Motion - Problem List & Annotations (1) Strangulated ventral incisional hernia SNOMED Code(s): 723848228 Code(s): K43.0 - INCISIONAL HERNIA WITH OBSTRUCTION, WITHOUT GANGRENE Status: Acute Current Visit: Yes - Problem List Review Problem List Initiated/Reviewed/Updated: Yes - My Orders Last 24 Hours: Active Orders 24 hr Category Date Time Status CBC WITH AUTO DIFF [HEME] AM Lab 10/10/18 05:11 Ordered CBC WITH AUTO DIFF [HEME] AM Lab 10/11/18 05:11 Ordered Phenol [Chloraseptic Throat Winston] Med 10/08/18 14:26 Active 1 ml MUCMEM Q4H PRN diphenhydrAMINE [Benadryl] Med 10/08/18 17:01 Active 50 mg IVPUSH Q4H PRN Medication Orders Acetaminophen (Tylenol) 650 mg RECTAL Q6H PRN PRN Reason: Fever Diphenhydramine HCl (Benadryl) 50 mg IVPUSH Q4H PRN PRN Reason: Itching Last Admin: 10/09/18 14:14 Dose: 50 mg Admin: 10/09/18 08:06 Dose: 50 mg Admin: 10/09/18 01:22 Dose: 50 mg Admin: 10/08/18 17:14 Dose: 50 mg Duloxetine HCl (Cymbalta) 60 mg PO DAILY [facility] Last Admin: 10/09/18 08:07 Dose: 60 mg Admin: 10/08/18 08:19 Dose: 60 mg Admin: 10/07/18 11:04 Dose: 60 mg Enoxaparin Sodium (Lovenox) 40 mg SUBCUT Q24H [facility] Last Admin: 10/09/18 11:08 Dose: 40 mg Admin: 10/08/18 11:33 Dose: 40 mg Admin: 10/07/18 11:05 Dose: 40 mg Hydralazine HCl (Apresoline) 10 mg IVPUSH Q2H PRN PRN Reason: Hypertension Last Admin: 10/08/18 17:33 Dose: 10 mg Hydrochlorothiazide (Hydrochlorothiazide) 25 mg PO DAILY [facility] Last Admin: 10/09/18 08:07 Dose: 25 mg Admin: 10/08/18 08:19 Dose: 25 mg Admin: 10/07/18 11:04 Dose: 25 mg Lactated Ringer's (Ringers, Lactated) 1,000 mls @ 125 mls/hr IV ASDIRECTED [facility] Last Admin: 10/09/18 11:06 Dose: 125 mls/hr Infusion: 10/09/18 09:17 Dose: 125 mls/hr Admin: 10/09/18 01:17 Dose: 125 mls/hr Infusion: 10/09/18 01:17 Dose: 125 mls/hr Admin: 10/08/18 17:20 Dose: 125 mls/hr Infusion: 10/08/18 17:20 Dose: 125 mls/hr Admin: 10/08/18 09:30 Dose: 125 mls/hr Infusion: 10/08/18 08:17 Dose: 125 mls/hr Admin: 10/08/18 00:17 Dose: 125 mls/hr Infusion: 10/07/18 23:49 Dose: 125 mls/hr Admin: 10/07/18 15:49 Dose: 125 mls/hr Infusion: 10/07/18 14:44 Dose: 125 mls/hr Admin: 10/07/18 06:44 Dose: 125 mls/hr Ketorolac Tromethamine (Toradol) 15 mg IVPUSH Q6H [facility] Stop: 10/12/18 18:51 Last Admin: 10/09/18 14:14 Dose: 15 mg Admin: 10/09/18 08:06 Dose: 15 mg Admin: 10/09/18 01:21 Dose: 15 mg Admin: 10/08/18 20:18 Dose: 15 mg Admin: 10/08/18 14:00 Dose: 15 mg Admin: 10/08/18 08:17 Dose: 15 mg Admin: 10/08/18 01:14 Dose: 15 mg Admin: 10/07/18 19:49 Dose: 15 mg Morphine Sulfate (Morphine Steel Layer 30 Mg In 30 Ml) 0 mg IV ASDIRECTED PRN; Protocol PRN Reason: pain Last Admin: 10/09/18 12:39 Dose: 30 mg Admin: 10/09/18 02:08 Dose: 30 mg Admin: 10/08/18 13:06 Dose: 30 mg Admin: 10/08/18 00:45 Dose: 30 mg Admin: 10/07/18 17:44 Dose: 30 mg Admin: 10/07/18 09:34 Dose: 30 mg Nicotine (Habitrol) 14 mg TRDERM DAILY [facility] Last Admin: 10/09/18 08:07 Dose: 14 mg Admin: 10/08/18 08:18 Dose: 14 mg Admin: 10/07/18 08:39 Dose: 14 mg Ondansetron HCl (Zofran) 4 mg IVPUSH Q6H PRN PRN Reason: Nausea/Vomiting Last Admin: 10/09/18 01:17 Dose: 4 mg Admin: 10/08/18 20:03 Dose: 4 mg Admin: 10/08/18 08:10 Dose: 4 mg Admin: 10/07/18 13:32 Dose: 4 mg Pantoprazole Sodium (Protonix Iv) 40 mg IVPUSH DAILY [facility] Last Admin: 10/09/18 08:06 Dose: 40 mg Admin: 10/08/18 08:10 Dose: 40 mg Admin: 10/07/18 08:39 Dose: 40 mg Phenol/Menthol (Chloraseptic Throat Winston) 1 ml MUCMEM Q4H PRN PRN Reason: Sore Throat Last Admin: 10/09/18 01:22 Dose: 1 spray Admin: 10/08/18 17:13 Dose: 2 spray Promethazine HCl (Phenergan) 25 mg IM Q6H PRN PRN Reason: Nausea/Vomiting Last Admin: 10/09/18 04:52 Dose: 25 mg Admin: 10/07/18 17:40 Dose: 25 mg Scopolamine (Transderm-Scop) 1.5 mg TRDERM Q72H PRN PRN Reason: Nausea/Vomiting Last Admin: 10/07/18 13:39 Dose: 1.5 mg Sodium Chloride (Saline Flush) 10 ml FLUSH ASDIRECTED PRN PRN Reason: Keep Vein Open Sodium Chloride (Saline Flush) 2.5 ml FLUSH ASDIRECTED PRN PRN Reason: Keep Vein Open - Plan Plan (Free Text/Narrative):: The patients NG migrated out some and had to be advanced this morning. It is in the fundus of the stomach and draining well. The patient had 400ml out from 4- 12. It still appears slightly bilious. The patient is passing flatus however. He feels tired. There is an area of redness/bruising under the incision. This was marked and will be monitored for now. It does not appear to be cellulitis as it is not tender or warm. Continue NG to low intermittent suction, NPO other than home meds and IVF replacement. Once output decreases or patient has BM, will clamp NG to see if he tolerates.
[2018-10-10] MEDS: hydrALAZINE 20 MG/ML SDV IVPUSH PRN (00:51)
[2018-10-10] MEDS: diphenhydrAMINE 50 MG/ML SDV IVPUSH PRN (00:51)
[2018-10-10] MEDS: Ketorolac 15 MG/ML SDV IVPUSH SCH ×3 (02:31→14:10)
[2018-10-10] MEDS: Lactated Ringers 1,000 ML IV SCH ×2 (05:11→12:59)
[2018-10-10] MEDS: Phenol 1.4% Oral Spray 177 ML Bottle MUCMEM PRN (08:30)
[2018-10-10] MEDS: Pantoprazole 40 MG Vial IVPUSH SCH (08:51)
[2018-10-10] MEDS: Hydrochlorothiazide 25 MG Tab PO SCH (09:03)
[2018-10-10] MEDS: DULoxetine 60 MG Cap PO SCH (09:04)
[2018-10-10] MEDS: Bisacodyl 5 MG Tab PO SCH ×2 (09:08→20:39)
[2018-10-10] MEDS: Polyethylene Glycol 3350 Powder 17 GM Packet PO SCH (09:09)
[2018-10-10] MEDS: Nicotine 14 MG/24 Hr Patch TRDERM SCH (09:14)
[2018-10-10] MEDS: Enoxaparin 40 MG/0.4 ML Syringe SUBCUT SCH (10:37)
[2018-10-10] MEDS ORDERED: Acetaminophen/oxyCODONE 325-5 MG Tab PO PRN (16:00)
[2018-10-10] MEDS ORDERED: Ketorolac 10 MG Tab PO PRN (16:01)
--- NOTE | 2018-10-10 17:06 | PCM.SURGPN ---
- General Info Date of Service: 10/10/18 Date of Surgery/Procedure: 10/06/18 POD#: 4 Functional Status: Reports: Pain Controlled, Tolerating Diet, Ambulating, Urinating - Review of Systems General: Reports: No Symptoms Pulmonary: Reports: No Symptoms Cardiovascular: Reports: No Symptoms Gastrointestinal: Reports: No Symptoms, Flatus Genitourinary: Reports: No Symptoms Musculoskeletal: Reports: No Symptoms Skin: Reports: Bruising - Patient Data Vitals - Most Recent: Last Vital Signs Temp 36.1 C 10/10/18 15:57 Pulse 82 10/10/18 15:57 Resp 16 10/10/18 15:57 BP 160/103 H 10/10/18 15:57 Pulse Ox 95 10/10/18 15:57 Weight - Most Recent: 142.882 kg I&O - Last 24 Hours: Intake & Output 10/10/18 10/10/18 10/10/18 06:59 14:59 22:59 Intake Total 937 1000 1960 Output Total 1400 2256 Balance -463 1000 -296 Lab Results Last 24 Hrs: Laboratory Results - last 24 hr 10/10/18 Range/Units 05:10 WBC 10.21 (4.0-11.0) K/uL RBC 5.04 (4.50-5.90) M/uL Hgb 15.3 (13.0-17.0) g/dL Hct 43.5 (38.0-50.0) % MCV 86.3 (80.0-98.0) fL MCH 30.4 (27.0-32.0) pg MCHC 35.2 (31.0-37.0) g/dL RDW Std Deviation 40.0 (28.0-62.0) fl RDW Coeff of Loren 13 (11.0-15.0) % Plt Count 257 (150-400) K/uL MPV 9.10 (7.40-12.00) fL Neut % (Auto) 62.3 (48.0-80.0) % Lymph % (Auto) 24.2 (16.0-40.0) % [place] % (Auto) 9.8 (0.0-15.0) % Eos % (Auto) 3.2 (0.0-7.0) % Baso % (Auto) 0.5 (0.0-1.5) % Neut # (Auto) 6.4 H (1.4-5.7) K/uL Lymph # (Auto) 2.5 H (0.6-2.4) K/uL [place] # (Auto) 1.0 H (0.0-0.8) K/uL Eos # (Auto) 0.3 (0.0-0.7) K/uL Baso # (Auto) 0.1 (0.0-0.1) K/uL Nucleated RBC % 0.0 /100WBC Nucleated RBCs # 0 K/uL Med Orders - Current: Current Medications Bisacodyl (Dulcolax) 10 mg PO BID [facility] Last Admin: 10/10/18 09:08 Dose: 10 mg Diphenhydramine HCl (Benadryl) 50 mg IVPUSH Q4H PRN PRN Reason: Itching Last Admin: 10/10/18 00:51 Dose: 50 mg Duloxetine HCl (Cymbalta) 60 mg PO DAILY [facility] Last Admin: 10/10/18 09:04 Dose: 60 mg Enoxaparin Sodium (Lovenox) 40 mg SUBCUT Q24H [facility] Last Admin: 10/10/18 10:37 Dose: 40 mg Hydralazine HCl (Apresoline) 10 mg IVPUSH Q2H PRN PRN Reason: Hypertension Last Admin: 10/10/18 00:51 Dose: 10 mg Hydrochlorothiazide (Hydrochlorothiazide) 25 mg PO DAILY [facility] Last Admin: 10/10/18 09:03 Dose: 25 mg Ketorolac Tromethamine (Toradol) 10 mg PO Q6H PRN PRN Reason: Abdominal Pain Stop: 10/15/18 16:02 Nicotine (Habitrol) 14 mg TRDERM DAILY [facility] Last Admin: 10/10/18 09:14 Dose: 14 mg Omeprazole (Omeprazole) 20 mg PO DAILY [facility] Ondansetron HCl (Zofran) 4 mg IVPUSH Q6H PRN PRN Reason: Nausea/Vomiting Last Admin: 10/09/18 01:17 Dose: 4 mg Oxycodone/Acetaminophen (Percocet 325-5 Mg) 2 tab PO Q4H PRN PRN Reason: Abdominal Pain Phenol/Menthol (Chloraseptic Throat [place]) 1 ml MUCMEM Q4H PRN PRN Reason: Sore Throat Last Admin: 10/10/18 08:30 Dose: 1 spray Polyethylene Glycol (Miralax) 17 gm PO DAILY [facility] Last Admin: 10/10/18 09:09 Dose: 17 gm Promethazine HCl (Phenergan) 25 mg IM Q6H PRN PRN Reason: Nausea/Vomiting Last Admin: 10/09/18 04:52 Dose: 25 mg Scopolamine (Transderm-Scop) 1.5 mg TRDERM Q72H PRN PRN Reason: Nausea/Vomiting Last Admin: 10/07/18 13:39 Dose: 1.5 mg Sodium Chloride (Saline Flush) 10 ml FLUSH ASDIRECTED PRN PRN Reason: Keep Vein Open Sodium Chloride (Saline Flush) 2.5 ml FLUSH ASDIRECTED PRN PRN Reason: Keep Vein Open Discontinued Medications Acetaminophen (Tylenol) 650 mg RECTAL Q6H PRN PRN Reason: Fever Bupivacaine HCl (Marcaine 0.5%) Confirm Administered Dose 30 ml .ROUTE .STK-MED ONE Stop: 10/06/18 20:39 Cefazolin Sodium (Ancef) Confirm Administered Dose 1 gm .ROUTE .STK-MED ONE Stop: 10/06/18 22:19 Dexamethasone (Dexamethasone) Confirm Administered Dose 20 mg .ROUTE .STK-MED ONE Stop: 10/06/18 20:45 Diphenhydramine HCl (Benadryl) 25 mg IVPUSH Q4H PRN PRN Reason: Itching Last Admin: 10/08/18 03:56 Dose: 25 mg Diphtheria/Tetanus/Acell Pertussis (Boostrix) 0.5 ml IM .ONCE ONE Stop: 10/07/18 10:01 Last Admin: 10/08/18 11:13 Dose: Not Given Ephedrine Sulfate (Ephedrine Sulfate) Confirm Administered Dose 50 mg .ROUTE .STK-MED ONE Stop: 10/06/18 22:28 Fentanyl (Sublimaze) Confirm Administered Dose 250 mcg .ROUTE .STK-MED ONE Stop: 10/06/18 20:41 Fentanyl (Sublimaze) 50 mcg IVPUSH Q5M PRN PRN Reason: Pain (severe 7-10) Stop: 10/07/18 02:00 Glycopyrrolate (Robinul) Confirm Administered Dose 0.4 mg .ROUTE .STK-MED ONE Stop: 10/06/18 21:54 Glycopyrrolate (Robinul) Confirm Administered Dose 0.2 mg .ROUTE .STK-MED ONE Stop: 10/06/18 22:58 Hydromorphone HCl (Dilaudid) 1 mg IV ONETIME ONE Stop: 10/06/18 18:16 Last Admin: 10/06/18 18:24 Dose: Not Given Hydromorphone HCl (Dilaudid) Confirm Administered Dose 1 mg .ROUTE .STK-MED ONE Stop: 10/06/18 18:18 Last Admin: 10/06/18 18:22 Dose: Not Given Hydromorphone HCl (Dilaudid) 1 mg IVPUSH ONETIME ONE Stop: 10/06/18 18:23 Last Admin: 10/06/18 18:22 Dose: 1 mg Hydromorphone HCl (Dilaudid) 1 mg IVPUSH ONETIME ONE Stop: 10/06/18 19:24 Last Admin: 10/06/18 19:31 Dose: 1 mg Hydromorphone HCl (Dilaudid) Confirm Administered Dose 2 mg .ROUTE .STK-MED ONE Stop: 10/06/18 22:11 Sodium Chloride (Normal Saline) 1,000 mls @ 999 mls/hr IV BOLUS ONE Stop: 10/06/18 18:55 Last Admin: 10/06/18 18:10 Dose: 999 mls/hr Piperacillin Sod/Tazobactam (Sod 3.375 gm/ Sodium Chloride) 50 mls @ 100 mls/ hr IV ONETIME ONE Stop: 10/06/18 21:08 Last Admin: 10/06/18 20:46 Dose: 100 mls/hr Sodium Chloride (Normal Saline) Confirm Administered Dose 20 mls @ as directed .ROUTE .STK-MED ONE Stop: 10/06/18 22:11 Acetaminophen (Ofirmev) Confirm Administered Dose 100 mls @ as directed IV .STK- MED ONE Stop: 10/06/18 23:33 Lactated Ringer's (Ringers, Lactated) 1,000 mls @ 125 mls/hr IV ASDIRECTED ADIN Last Admin: 10/10/18 12:59 Dose: 125 mls/hr Ketorolac Tromethamine (Toradol) 30 mg IVPUSH ONETIME ONE Stop: 10/06/18 18:16 Last Admin: 10/06/18 18:18 Dose: 30 mg Ketorolac Tromethamine (Toradol) 15 mg IVPUSH Q6H [facility] Stop: 10/12/18 18:51 Last Admin: 10/10/18 14:10 Dose: 15 mg Lidocaine (Xylocaine-Mpf 2%) Confirm Administered Dose 5 ml .ROUTE .STK-MED ONE Stop: 10/06/18 20:43 Midazolam HCl (Versed 1 Mg/Ml) Confirm Administered Dose 2 mg .ROUTE .STK-MED ONE Stop: 10/06/18 20:41 Midazolam HCl (Versed 1 Mg/Ml) Confirm Administered Dose 2 mg .ROUTE .STK-MED ONE Stop: 10/06/18 21:28 Morphine Sulfate (Morphine) 4 mg IVPUSH ONETIME ONE Stop: 10/06/18 17:56 Last Admin: 10/06/18 18:11 Dose: 4 mg Morphine Sulfate (Morphine [employer]ade Game [employer]ician 30 Mg In 30 Ml) 30 mg IV DAILY [facility]; Protocol Morphine Sulfate (Morphine [employer]ician 30 Mg In 30 Ml) 30 mg IV NOW STA; Protocol Stop: 10/07/18 02:23 Last Admin: 10/07/18 02:49 Dose: 30 mg Morphine Sulfate (Morphine [employer]ician 30 Mg In 30 Ml) 0 mg IV ASDIRECTED PRN; Protocol PRN Reason: pain Last Admin: 10/09/18 23:36 Dose: 30 mg Neostigmine Methylsulfate (Neostigmine) Confirm Administered Dose 5 mg .ROUTE .STK-MED ONE Stop: 10/06/18 21:54 Ondansetron HCl (Zofran) 4 mg IVPUSH ONETIME ONE Stop: 10/06/18 17:56 Last Admin: 10/06/18 18:11 Dose: 4 mg Ondansetron HCl (Zofran) Confirm Administered Dose 4 mg .ROUTE .STK-MED ONE Stop: 10/06/18 20:45 Pantoprazole Sodium (Protonix Iv) 40 mg IVPUSH DAILY [facility] Last Admin: 10/10/18 08:51 Dose: 40 mg Propofol (Diprivan 20 Ml) Confirm Administered Dose 200 mg .ROUTE .STK-MED ONE Stop: 10/06/18 20:41 Rocuronium [place] (Zemuron) Confirm Administered Dose 100 mg .ROUTE .STK-MED ONE Stop: 10/06/18 20:44 Succinylcholine Chloride (Quelicin) Confirm Administered Dose 200 mg .ROUTE .STK -MED ONE Stop: 10/06/18 20:44 - Exam Wound/Incisions: Healing Well, Other (The dependent area of the incision appears bruised. This does not appear to be cellulitis.) General: Alert, Oriented Lungs: Normal Respiratory Effort Cardiovascular: Regular Rate GI/Abdominal Exam: Soft, Non-Tender, No Distention, No Mass Extremities: Normal Inspection - Problem List & Annotations (1) Strangulated ventral incisional hernia SNOMED Code(s): 078431312 Code(s): K43.0 - INCISIONAL HERNIA WITH OBSTRUCTION, WITHOUT GANGRENE Status: Acute Current Visit: Yes - Problem List Review Problem List Initiated/Reviewed/Updated: Yes - My Orders Last 24 Hours: Active Orders 24 hr Category Date Time Status Regular Diet [DIET] Diet 10/10/18 Dinner Active CBC WITH AUTO DIFF [HEME] AM Lab 10/11/18 05:11 Ordered Acetaminophen/oxyCODONE [Percocet 325-5 MG] Med 10/10/18 16:00 Active 2 tab PO Q4H PRN Bisacodyl [Dulcolax] Med 10/10/18 09:00 Active 10 mg PO BID Ketorolac [Toradol] Med 10/10/18 16:01 Active 10 mg PO Q6H PRN Omeprazole Med 10/11/18 09:00 Active 20 mg PO DAILY Polyethylene Glycol 3350 [MiraLAX] Med 10/10/18 09:00 Active 17 gm PO DAILY Medication Orders Bisacodyl (Dulcolax) 10 mg PO BID [facility] Last Admin: 10/10/18 09:08 Dose: 10 mg Diphenhydramine HCl (Benadryl) 50 mg IVPUSH Q4H PRN PRN Reason: Itching Last Admin: 10/10/18 00:51 Dose: 50 mg Admin: 10/09/18 20:46 Dose: 50 mg Admin: 10/09/18 14:14 Dose: 50 mg Admin: 10/09/18 08:06 Dose: 50 mg Admin: 10/09/18 01:22 Dose: 50 mg Admin: 10/08/18 17:14 Dose: 50 mg Duloxetine HCl (Cymbalta) 60 mg PO DAILY [facility] Last Admin: 10/10/18 09:04 Dose: 60 mg Admin: 10/09/18 08:07 Dose: 60 mg Admin: 10/08/18 08:19 Dose: 60 mg Admin: 10/07/18 11:04 Dose: 60 mg Enoxaparin Sodium (Lovenox) 40 mg SUBCUT Q24H [facility] Last Admin: 10/10/18 10:37 Dose: 40 mg Admin: 10/09/18 11:08 Dose: 40 mg Admin: 10/08/18 11:33 Dose: 40 mg Admin: 10/07/18 11:05 Dose: 40 mg Hydralazine HCl (Apresoline) 10 mg IVPUSH Q2H PRN PRN Reason: Hypertension Last Admin: 10/10/18 00:51 Dose: 10 mg Admin: 10/08/18 17:33 Dose: 10 mg Hydrochlorothiazide (Hydrochlorothiazide) 25 mg PO DAILY [facility] Last Admin: 10/10/18 09:03 Dose: 25 mg Admin: 10/09/18 08:07 Dose: 25 mg Admin: 10/08/18 08:19 Dose: 25 mg Admin: 10/07/18 11:04 Dose: 25 mg Ketorolac Tromethamine (Toradol) 10 mg PO Q6H PRN PRN Reason: Abdominal Pain Stop: 10/15/18 16:02 Nicotine (Habitrol) 14 mg TRDERM DAILY [facility] Last Admin: 10/10/18 09:14 Dose: 14 mg Admin: 10/09/18 08:07 Dose: 14 mg Admin: 10/08/18 08:18 Dose: 14 mg Admin: 10/07/18 08:39 Dose: 14 mg Omeprazole (Omeprazole) 20 mg PO DAILY [facility] Ondansetron HCl (Zofran) 4 mg IVPUSH Q6H PRN PRN Reason: Nausea/Vomiting Last Admin: 10/09/18 01:17 Dose: 4 mg Admin: 10/08/18 20:03 Dose: 4 mg Admin: 10/08/18 08:10 Dose: 4 mg Admin: 10/07/18 13:32 Dose: 4 mg Oxycodone/Acetaminophen (Percocet 325-5 Mg) 2 tab PO Q4H PRN PRN Reason: Abdominal Pain Phenol/Menthol (Chloraseptic Throat [place]) 1 ml MUCMEM Q4H PRN PRN Reason: Sore Throat Last Admin: 10/10/18 08:30 Dose: 1 spray Admin: 10/09/18 01:22 Dose: 1 spray Admin: 10/08/18 17:13 Dose: 2 spray Polyethylene Glycol (Miralax) 17 gm PO DAILY [facility] Last Admin: 10/10/18 09:09 Dose: 17 gm Promethazine HCl (Phenergan) 25 mg IM Q6H PRN PRN Reason: Nausea/Vomiting Last Admin: 10/09/18 04:52 Dose: 25 mg Admin: 10/07/18 17:40 Dose: 25 mg Scopolamine (Transderm-Scop) 1.5 mg TRDERM Q72H PRN PRN Reason: Nausea/Vomiting Last Admin: 10/07/18 13:39 Dose: 1.5 mg Sodium Chloride (Saline Flush) 10 ml FLUSH ASDIRECTED PRN PRN Reason: Keep Vein Open Sodium Chloride (Saline Flush) 2.5 ml FLUSH ASDIRECTED PRN PRN Reason: Keep Vein Open - Plan Plan (Free Text/Narrative):: The patient's nasogastric output yesterday was diminished and the patient was passing a lot of flatus. Because of this, I clamped his NG tube overnight. He had no issues with abdominal discomfort, nausea, bloating or vomiting. This morning I advanced his diet to clears which he tolerated well. 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 Will continue with MiraLAX and twice a day Dulcolax tablets to promote bowel motility. The area of concern over his incision appears to be bruising with no evidence of cellulitis today. His white blood cell count is normal today. I will advance his diet to regular. If he tolerates this overnight with no issues he can discharge home tomorrow.
[2018-10-11 08:53] VITALS: BP 172/96
[2018-10-11] MEDS ORDERED: Omeprazole 20 MG Cap.CR PO SCH (09:00)
[2018-10-11] MEDS: Bisacodyl 5 MG Tab PO SCH (09:56)
[2018-10-11] MEDS: Polyethylene Glycol 3350 Powder 17 GM Packet PO SCH (09:57)
[2018-10-11] MEDS: Enoxaparin 40 MG/0.4 ML Syringe SUBCUT SCH (09:57)
[2018-10-11] MEDS: Nicotine 14 MG/24 Hr Patch TRDERM SCH (09:57)
[2018-10-11] MEDS: Hydrochlorothiazide 25 MG Tab PO SCH (09:58)
[2018-10-11] MEDS: DULoxetine 60 MG Cap PO SCH (09:58)
--- NOTE | 2018-10-11 16:41 | PCM.DCSUM1 ---
Discharge Summary - Hospital Course Free Text/Narrative:: Patient is a 48-year-old male who presented with a strangulated umbilical hernia. He was taken to the OR for an emergent exploratory laparotomy. He had a 5 cm piece of incarcerated small bowel in an umbilical hernia. Once the bowel was on strangulated, it appeared to perfuse well. The abdomen was closed with permanent suture. An NG was placed in the OR. He had a large amount of NG output over the next several days. 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 On postop day 3 he developed flatus and on postop day 4 his NG output decreased. It was clamped overnight with no nausea or vomiting. His diet was advanced without difficulty. He is still passing flatus and does not feel distended. His abdominal pain is well- controlled with oral Percocet and Toradol. He was discharged home. - Discharge Data Discharge Date: 10/11/18 Discharge Disposition: Home, Self-Care 01 Condition: Fair - Discharge Diagnosis/Problem(s) (1) Strangulated ventral incisional hernia SNOMED Code(s): 033929850 ICD Code: K43.0 - INCISIONAL HERNIA WITH OBSTRUCTION, WITHOUT GANGRENE Status: Acute - Patient Summary/Data Operative Procedure(s) Performed: Exploratory laparotomy and repair of strangulated incisional hernia - Patient Instructions Diet: Regular Diet as Tolerated, Drink 8-10+ Glasses/Day Activity: Rest and Relax Today Driving: Do Not Drive Showering/Bathing: May Shower, No Tub Bathing/Swimming Wound/Incision Care: Keep Operative Site/Wound Site Clean and Dry Notify Provider of: Fever, Increased Pain, Swelling and Redness, Drainage, Nausea and/or Vomiting - Discharge Plan *PRESCRIPTION DRUG MONITORING PROGRAM REVIEWED*: Yes *COPY OF PRESCRIPTION DRUG MONITORING REPORT IN PATIENT NAKITA: Yes Home Medications: Home Meds hydroCHLOROthiazide [Hydrochlorothiazide] 25 mg PO DAILY 04/27/14 [History] DULoxetine [Cymbalta] 60 mg PO DAILY 08/07/15 [History] Patient Handouts: Acetaminophen; Oxycodone tablets, Incision Care, Adult, Easy- to-Read, Ketorolac tablets Referrals: Karuna Rviera MD [Physician] - 10/16/18 3:00 pm - Discharge Summary/Plan Comment DC Time >30 min.: No - General Info Functional Status: Reports: Pain Controlled - Review of Systems General: Reports: No Symptoms Pulmonary: Reports: No Symptoms Cardiovascular: Reports: No Symptoms Gastrointestinal: Reports: No Symptoms Genitourinary: Reports: No Symptoms - Patient Data Vitals - Most Recent: Last Vital Signs Temp 36.6 C 10/11/18 07:15 Pulse 83 10/11/18 07:15 Resp 18 10/11/18 07:15 BP 172/96 H 10/11/18 07:15 Pulse Ox 95 10/11/18 07:15 Weight - Most Recent: 142.882 kg I&O - Last 24 hours: Intake & Output 10/11/18 10/11/18 10/11/18 06:59 14:59 22:59 Intake Total 600 Output Total 700 Balance -100 Lab Results - Last 24 hrs: Laboratory Results - last 24 hr 10/11/18 Range/Units 05:25 WBC 11.21 H (4.0-11.0) K/uL RBC 5.75 (4.50-5.90) M/uL Hgb 17.5 H (13.0-17.0) g/dL Hct 48.7 (38.0-50.0) % MCV 84.7 (80.0-98.0) fL MCH 30.4 (27.0-32.0) pg MCHC 35.9 (31.0-37.0) g/dL RDW Std Deviation 39.2 (28.0-62.0) fl RDW Coeff of Loren 13 (11.0-15.0) % Plt Count 225 (150-400) K/uL MPV 10.10 (7.40-12.00) fL Add Manual Diff YES Neutrophils % (Manual) 65 (48.0-80.0) % Lymphocytes % (Manual) 24 (16.0-40.0) % Monocytes % (Manual) 8 (0.0-15.0) % Eosinophils % (Manual) 3 (0.0-7.0) % Nucleated RBC % 0.0 /100WBC Absolute Seg Neuts 7.3 H (1.4-5.7) Lymphocytes # (Manual) 2.7 H (0.6-2.4) Monocytes # (Manual) 0.9 H (0.0-0.8) Eosinophils # (Manual) 0.3 (0.0-0.7) Nucleated RBCs # 0 K/uL Med Orders - Current: Current Medications Discontinued Medications Acetaminophen (Tylenol) 650 mg RECTAL Q6H PRN PRN Reason: Fever Bisacodyl (Dulcolax) 10 mg PO BID [facility] Last Admin: 10/11/18 09:56 Dose: Not Given Bupivacaine HCl (Marcaine 0.5%) Confirm Administered Dose 30 ml .ROUTE .STK-MED ONE Stop: 10/06/18 20:39 Cefazolin Sodium (Ancef) Confirm Administered Dose 1 gm .ROUTE .STK-MED ONE Stop: 10/06/18 22:19 Dexamethasone (Dexamethasone) Confirm Administered Dose 20 mg .ROUTE .STK-MED ONE Stop: 10/06/18 20:45 Diphenhydramine HCl (Benadryl) 25 mg IVPUSH Q4H PRN PRN Reason: Itching Last Admin: 10/08/18 03:56 Dose: 25 mg Diphenhydramine HCl (Benadryl) 50 mg IVPUSH Q4H PRN PRN Reason: Itching Last Admin: 10/10/18 00:51 Dose: 50 mg Diphtheria/Tetanus/Acell Pertussis (Boostrix) 0.5 ml IM .ONCE ONE Stop: 10/07/18 10:01 Last Admin: 10/08/18 11:13 Dose: Not Given Duloxetine HCl (Cymbalta) 60 mg PO DAILY [facility] Last Admin: 10/11/18 09:58 Dose: 60 mg Enoxaparin Sodium (Lovenox) 40 mg SUBCUT Q24H [facility] Last Admin: 10/11/18 09:57 Dose: 40 mg Ephedrine Sulfate (Ephedrine Sulfate) Confirm Administered Dose 50 mg .ROUTE .STK-MED ONE Stop: 10/06/18 22:28 Fentanyl (Sublimaze) Confirm Administered Dose 250 mcg .ROUTE .STK-MED ONE Stop: 10/06/18 20:41 Fentanyl (Sublimaze) 50 mcg IVPUSH Q5M PRN PRN Reason: Pain (severe 7-10) Stop: 10/07/18 02:00 Glycopyrrolate (Robinul) Confirm Administered Dose 0.4 mg .ROUTE .STK-MED ONE Stop: 10/06/18 21:54 Glycopyrrolate (Robinul) Confirm Administered Dose 0.2 mg .ROUTE .STK-MED ONE Stop: 10/06/18 22:58 Hydralazine HCl (Apresoline) 10 mg IVPUSH Q2H PRN PRN Reason: Hypertension Last Admin: 10/10/18 00:51 Dose: 10 mg Hydrochlorothiazide (Hydrochlorothiazide) 25 mg PO DAILY [facility] Last Admin: 10/11/18 09:58 Dose: 25 mg Hydromorphone HCl (Dilaudid) 1 mg IV ONETIME ONE Stop: 10/06/18 18:16 Last Admin: 10/06/18 18:24 Dose: Not Given Hydromorphone HCl (Dilaudid) Confirm Administered Dose 1 mg .ROUTE .STK-MED ONE Stop: 10/06/18 18:18 Last Admin: 10/06/18 18:22 Dose: Not Given Hydromorphone HCl (Dilaudid) 1 mg IVPUSH ONETIME ONE Stop: 10/06/18 18:23 Last Admin: 10/06/18 18:22 Dose: 1 mg Hydromorphone HCl (Dilaudid) 1 mg IVPUSH ONETIME ONE Stop: 10/06/18 19:24 Last Admin: 10/06/18 19:31 Dose: 1 mg Hydromorphone HCl (Dilaudid) Confirm Administered Dose 2 mg .ROUTE .STK-MED ONE Stop: 10/06/18 22:11 Sodium Chloride (Normal Saline) 1,000 mls @ 999 mls/hr IV BOLUS ONE Stop: 10/06/18 18:55 Last Admin: 10/06/18 18:10 Dose: 999 mls/hr Piperacillin Sod/Tazobactam (Sod 3.375 gm/ Sodium Chloride) 50 mls @ 100 mls/ hr IV ONETIME ONE Stop: 10/06/18 21:08 Last Admin: 10/06/18 20:46 Dose: 100 mls/hr Sodium Chloride (Normal Saline) Confirm Administered Dose 20 mls @ as directed .ROUTE .STK-MED ONE Stop: 10/06/18 22:11 Acetaminophen (Ofirmev) Confirm Administered Dose 100 mls @ as directed IV .STK- MED ONE Stop: 10/06/18 23:33 Lactated Ringer's (Ringers, Lactated) 1,000 mls @ 125 mls/hr IV ASDIRECTED ADIN Last Admin: 10/10/18 12:59 Dose: 125 mls/hr Ketorolac Tromethamine (Toradol) 30 mg IVPUSH ONETIME ONE Stop: 10/06/18 18:16 Last Admin: 10/06/18 18:18 Dose: 30 mg Ketorolac Tromethamine (Toradol) 15 mg IVPUSH Q6H [facility] Stop: 10/12/18 18:51 Last Admin: 10/10/18 14:10 Dose: 15 mg Ketorolac Tromethamine (Toradol) 10 mg PO Q6H PRN PRN Reason: Abdominal Pain Stop: 10/15/18 16:02 Lidocaine (Xylocaine-Mpf 2%) Confirm Administered Dose 5 ml .ROUTE .STK-MED ONE Stop: 10/06/18 20:43 Midazolam HCl (Versed 1 Mg/Ml) Confirm Administered Dose 2 mg .ROUTE .STK-MED ONE Stop: 10/06/18 20:41 Midazolam HCl (Versed 1 Mg/Ml) Confirm Administered Dose 2 mg .ROUTE .STK-MED ONE Stop: 10/06/18 21:28 Morphine Sulfate (Morphine) 4 mg IVPUSH ONETIME ONE Stop: 10/06/18 17:56 Last Admin: 10/06/18 18:11 Dose: 4 mg Morphine Sulfate (Morphine Deputy Commonwealth'S Attorney 30 Mg In 30 Ml) 30 mg IV DAILY [facility]; Protocol Morphine Sulfate (Morphine Deputy [employer] Attorney 30 Mg In 30 Ml) 30 mg IV NOW STA; Protocol Stop: 10/07/18 02:23 Last Admin: 10/07/18 02:49 Dose: 30 mg Morphine Sulfate (Morphine Deputy [employer] Attorney 30 Mg In 30 Ml) 0 mg IV ASDIRECTED PRN; Protocol PRN Reason: pain Last Admin: 10/09/18 23:36 Dose: 30 mg Neostigmine Methylsulfate (Neostigmine) Confirm Administered Dose 5 mg .ROUTE .STK-MED ONE Stop: 10/06/18 21:54 Nicotine (Habitrol) 14 mg TRDERM DAILY [facility] Last Admin: 10/11/18 09:57 Dose: Not Given Omeprazole (Omeprazole) 20 mg PO DAILY [facility] Last Admin: 10/11/18 09:58 Dose: 20 mg Ondansetron HCl (Zofran) 4 mg IVPUSH ONETIME ONE Stop: 10/06/18 17:56 Last Admin: 10/06/18 18:11 Dose: 4 mg Ondansetron HCl (Zofran) Confirm Administered Dose 4 mg .ROUTE .STK-MED ONE Stop: 10/06/18 20:45 Ondansetron HCl (Zofran) 4 mg IVPUSH Q6H PRN PRN Reason: Nausea/Vomiting Last Admin: 10/09/18 01:17 Dose: 4 mg Oxycodone/Acetaminophen (Percocet 325-5 Mg) 2 tab PO Q4H PRN PRN Reason: Abdominal Pain Last Admin: 10/11/18 10:27 Dose: 2 tab Pantoprazole Sodium (Protonix Iv) 40 mg IVPUSH DAILY [facility] Last Admin: 10/10/18 08:51 Dose: 40 mg Phenol/Menthol (Chloraseptic Throat [place]) 1 ml MUCMEM Q4H PRN PRN Reason: Sore Throat Last Admin: 10/10/18 08:30 Dose: 1 spray Polyethylene Glycol (Miralax) 17 gm PO DAILY [facility] Last Admin: 10/11/18 09:57 Dose: Not Given Promethazine HCl (Phenergan) 25 mg IM Q6H PRN PRN Reason: Nausea/Vomiting Last Admin: 10/09/18 04:52 Dose: 25 mg Propofol (Diprivan 20 Ml) Confirm Administered Dose 200 mg .ROUTE .ST-MED ONE Stop: 10/06/18 20:41 Rocuronium [place] (Zemuron) Confirm Administered Dose 100 mg .ROUTE .STPrecipio Diagnostics-MED ONE Stop: 10/06/18 20:44 Scopolamine (Transderm-Scop) 1.5 mg TRDERM Q72H PRN PRN Reason: Nausea/Vomiting Last Admin: 10/07/18 13:39 Dose: 1.5 mg Sodium Chloride (Saline Flush) 10 ml FLUSH ASDIRECTED PRN PRN Reason: Keep Vein Open Sodium Chloride (Saline Flush) 2.5 ml FLUSH ASDIRECTED PRN PRN Reason: Keep Vein Open Succinylcholine Chloride (Quelicin) Confirm Administered Dose 200 mg .ROUTE .STPrecipio Diagnostics -MED ONE Stop: 10/06/18 20:44 - Exam General: Reports: Alert, Oriented Neck: Reports: Supple Lungs: Reports: Normal Respiratory Effort Cardiovascular: Reports: Regular Rate GI/Abdominal Exam: Soft, Non-Tender, No Distention, No Mass, Other (Bruising in the dependent areas of juan manuel incision ) Extremities: Normal Inspection Skin: Reports: Warm, Dry, Intact Wound/Incisions: Reports: Healing Well
== END 2018-10-11 10:40 | disposition home or self-care (01) | DRG 354 ==
LOC: MW.ED 17:52 → MW.SDS 20:07 → MW.MS 21:32 → MW.SDS 23:44
PROVIDERS: ADMIT Surgery; ATTEND Surgery
PROC: 0WQF0ZZ Repair Abdominal Wall, Open Approach (ICD-10-PCS; principal; 2018-10-06)
PROC: 0D9670Z Drainage of Stomach with Drainage Device, Via Natural or Artificial Opening (ICD-10-PCS; principal; 2018-10-06)
DX: K43.0 Incisional hernia with obstruction, without gangrene (principal); Z68.41 Body mass index [BMI] 40.0-44.9, adult; K42.0 Umbilical hernia with obstruction, without gangrene; G47.33 Obstructive sleep apnea (adult) (pediatric); E66.01 Morbid (severe) obesity due to excess calories; I10 Essential (primary) hypertension; F41.9 Anxiety disorder, unspecified; F32.9 Major depressive disorder, single episode, unspecified; M19.90 Unspecified osteoarthritis, unspecified site; L40.9 Psoriasis, unspecified; F17.220 Nicotine dependence, chewing tobacco, uncomplicated; K21.9 Gastro-esophageal reflux disease without esophagitis; H91.90 Unspecified hearing loss, unspecified ear; Z79.899 Other long term (current) drug therapy; Z90.49 Acquired absence of other specified parts of digestive tract; Z87.442 Personal history of urinary calculi
CPT/HCPCS: 36415; 74018; 74018-26; 74176; 74176-26; 80048; 80053; 81001; 83735; 84100; 85025; 88302; 96361; 96365; 96375; 96376; 99283; 99285-25; A9270-GY; C9113; J0131; J0330; J0360; J0690; J1100; J1170; J1200; J1650; J1885; J2001; J2250; J2270; J2274; J2405; J2543; J2550; J2704; J3010; J3490; J7040; J7050; J7120

== ENCOUNTER 2019-05-15 22:05 | Emergency (ER) | payer OTHER ==
[2019-05-15] MEDS ORDERED: Ketorolac 30 MG/ML SDV IVPUSH ONE (22:12)
[2019-05-15] MEDS ORDERED: Ondansetron 4 MG/2 ML SDV IVPUSH ONE (22:12)
[2019-05-15] MEDS ORDERED: Sodium Chloride 0.9% 1,000 ML IV ONE (22:12)
--- NOTE | 2019-05-15 22:22 | EDM.PDOC ---
ED HPI GENERAL MEDICAL PROBLEM - General Chief Complaint: Abdominal Pain Stated Complaint: PT HAS STOMACH PAINS Time Seen by Provider: 05/15/19 22:06 - History of Present Illness INITIAL COMMENTS - FREE TEXT/NARRATIVE: HISTORY AND PHYSICAL: History of present illness: Patient's 49-year-old white male presents with a concern of acute left lower quadrant abdominal pain he denies associated vomiting diaphoresis denies trauma he has had a history of nephrolithiasis and history of incarcerated right inguinal hernia that was repaired. He denies fever chills denies urinary symptoms Review of systems: As per history of present illness and below otherwise all systems reviewed and negative. Past medical history: As per history of present illness and as reviewed below otherwise noncontributory. Surgical history: As per history of present illness and as reviewed below otherwise noncontributory. Social history: No reported history of drug or alcohol abuse. Family history: As per history of present illness and as reviewed below otherwise noncontributory. Physical exam: HEENT: Atraumatic, normocephalic, pupils reactive, negative for conjunctival pallor or scleral icterus, mucous membranes moist, throat clear, neck supple, nontender, trachea midline. Lungs: Clear to auscultation, breath sounds equal bilaterally, chest nontender. Heart: S1S2, regular, negative for clicks, rubs, or JVD. Abdomen: Soft, nondistended, localized tenderness in the left lower quadrant Negative for masses or hepatosplenomegaly. Negative for costovertebral tenderness. Pelvis: Stable nontender. Genitourinary: Deferred. Rectal: Deferred. Extremities: Atraumatic, negative for cords or calf pain. Neurovascular unremarkable. Neuro: Awake, alert, oriented. Cranial nerves II through XII unremarkable. Cerebellum unremarkable. Motor and sensory unremarkable throughout. Exam nonfocal. Diagnostics: CBC CMP EKG UA lipase CT abdomen and pelvis Therapeutics: Saline 1 L bolus Toradol 30 mg IV Zofran 4 mg Impression: #1 left lower quadrant abdominal pain Definitive disposition and diagnosis as appropriate pending reevaluation and review of above. LLQ abdomen Pain Score (Numeric/FACES): 6 - Related Data Allergies Allergy/AdvReac Type Severity Reaction Status Date / Time No Known Allergies Allergy Verified 05/15/19 22:08 Home Meds: Home Meds hydroCHLOROthiazide [Hydrochlorothiazide] 25 mg PO DAILY 04/27/14 [History] DULoxetine [Cymbalta] 120 mg PO DAILY 08/07/15 [History] Propranolol [Inderal] mg PO DAILY 05/15/19 [History] buPROPion [Wellbutrin] mg PO DAILY 05/15/19 [History] Past Medical History - Past Health History Medical/Surgical History: Denies Medical/Surgical History Cardiovascular History: Reports: Hypertension Gastrointestinal History: Reports: Other (See Below) Other Gastrointestinal History: occasional heartburn Genitourinary History: Reports: Renal Calculus Other Genitourinary History: several kidney stones Musculoskeletal History: Reports: Arthritis Psychiatric History: Reports: Anxiety, Depression Endocrine/Metabolic History: Reports: Obesity/BMI 30+ Dermatologic History: Reports: Psoriasis - Infectious Disease History Infectious Disease History: Reports: Chicken Pox - Past Surgical History Male Surgical History: Reports: Kidney Stone Extraction Social & Family History - Family History Family Medical History: Noncontributory Cardiac: Reports: Hypertension Endocrine/Metabolic: Reports: Diabetes, Type I, Diabetes, type II - Caffeine Use Caffeine Use: Reports: None ED ROS GENERAL - Review of Systems Review Of Systems: ROS reveals no pertinent complaints other than HPI. ED EXAM, GENERAL - Physical Exam Exam: See Below (See dictation) Course - Vital Signs Text/Narrative:: I discussed diagnostics with patient and notified general surgery patient was offered admission he declines but will follow up at 8 AM with general surgery as discussed Last Recorded V/S: Last Vital Signs Temp 36.4 C 05/15/19 22:05 Pulse 81 05/15/19 23:29 Resp 18 05/15/19 23:29 BP 160/94 H 05/15/19 23:29 Pulse Ox 95 05/15/19 23:29 - Orders/Labs/Meds Labs: Laboratory Tests 05/15/19 05/15/19 05/15/19 Range/Units 22:20 22:20 22:20 WBC 10.24 (4.0-11.0) K/uL RBC 4.83 (4.50-5.90) M/uL Hgb 14.8 (13.0-17.0) g/dL Hct 44.0 (38.0-50.0) % MCV 91.1 (80.0-98.0) fL MCH 30.6 (27.0-32.0) pg MCHC 33.6 (31.0-37.0) g/dL RDW Std Deviation 47.1 (28.0-62.0) fl RDW Coeff of Loren 14 (11.0-15.0) % Plt Count 319 (150-400) K/uL MPV 9.10 (7.40-12.00) fL Neut % (Auto) 64.6 (48.0-80.0) % Lymph % (Auto) 24.5 (16.0-40.0) % Loup % (Auto) 8.1 (0.0-15.0) % Eos % (Auto) 2.3 (0.0-7.0) % Baso % (Auto) 0.5 (0.0-1.5) % Neut # (Auto) 6.6 H (1.4-5.7) K/uL Lymph # (Auto) 2.5 H (0.6-2.4) K/uL Loup # (Auto) 0.8 (0.0-0.8) K/uL Eos # (Auto) 0.2 (0.0-0.7) K/uL Baso # (Auto) 0.1 (0.0-0.1) K/uL Nucleated RBC % 0.0 /100WBC Nucleated RBCs # 0 K/uL INR 0.96 Sodium 142 (136-148) mmol/L Potassium 4.0 (3.5-5.1) mmol/L Chloride 105 (98-107) mmol/L Carbon Dioxide 25.5 (21.0-32.0) mmol/L BUN 20 H (7.0-18.0) mg/dL Creatinine 1.1 (0.8-1.3) mg/dL Est Cr Clr Drug Dosing 87.47 mL/min Estimated GFR (MDRD) > 60.0 ml/min Glucose 145 H (74-106) mg/dL Calcium 8.7 (8.5-10.1) mg/dL Total Bilirubin 0.3 (0.2-1.0) mg/dL AST 23 (15-37) IU/L ALT 44 (14-63) IU/L Alkaline Phosphatase 97 (46-116) U/L Total Protein 7.0 (6.4-8.2) g/dL Albumin 3.7 (3.4-5.0) g/dL Globulin 3.3 (2.6-4.0) g/dL Albumin/Globulin Ratio 1.1 (0.9-1.6) Lipase 90 (73-393) U/L Urine Color Urine Appearance Urine pH (5.0-8.0) Ur Specific Kermit (1.001-1.035) Urine Protein (NEGATIVE) mg/dL Urine Glucose (UA) (NEGATIVE) mg/dL Urine Ketones (NEGATIVE) mg/dL Urine Occult Blood (NEGATIVE) Urine Nitrite (NEGATIVE) Urine Bilirubin (NEGATIVE) Urine Urobilinogen (<2.0) EU/dL Ur Leukocyte Esterase (NEGATIVE) Urine RBC (0-2/HPF) Urine WBC (0-5/HPF) Ur Epithelial Cells (NONE-FEW) Urine Bacteria (NEGATIVE) Urine Opiates Screen (NEGATIVE) Ur Oxycodone Screen (NEGATIVE) Urine Methadone Screen (NEGATIVE) Ur Barbiturates Screen (NEGATIVE) Ur Phencyclidine Scrn (NEGATIVE) Ur Amphetamine Screen (NEGATIVE) U Methamphetamines Scrn (NEGATIVE) U Benzodiazepines Scrn (NEGATIVE) U Cocaine Metab Screen (NEGATIVE) U Marijuana (THC) Screen (NEGATIVE) 05/15/19 05/15/19 Range/Units 23:15 23:15 WBC (4.0-11.0) K/uL RBC (4.50-5.90) M/uL Hgb (13.0-17.0) g/dL Hct (38.0-50.0) % MCV (80.0-98.0) fL MCH (27.0-32.0) pg MCHC (31.0-37.0) g/dL RDW Std Deviation (28.0-62.0) fl RDW Coeff of Loren (11.0-15.0) % Plt Count (150-400) K/uL MPV (7.40-12.00) fL Neut % (Auto) (48.0-80.0) % Lymph % (Auto) (16.0-40.0) % Loup % (Auto) (0.0-15.0) % Eos % (Auto) (0.0-7.0) % Baso % (Auto) (0.0-1.5) % Neut # (Auto) (1.4-5.7) K/uL Lymph # (Auto) (0.6-2.4) K/uL Loup # (Auto) (0.0-0.8) K/uL Eos # (Auto) (0.0-0.7) K/uL Baso # (Auto) (0.0-0.1) K/uL Nucleated RBC % /100WBC Nucleated RBCs # K/uL INR Sodium (136-148) mmol/L Potassium (3.5-5.1) mmol/L Chloride (98-107) mmol/L Carbon Dioxide (21.0-32.0) mmol/L BUN (7.0-18.0) mg/dL Creatinine (0.8-1.3) mg/dL Est Cr Clr Drug Dosing mL/min Estimated GFR (MDRD) ml/min Glucose (74-106) mg/dL Calcium (8.5-10.1) mg/dL Total Bilirubin (0.2-1.0) mg/dL AST (15-37) IU/L ALT (14-63) IU/L Alkaline Phosphatase (46-116) U/L Total Protein (6.4-8.2) g/dL Albumin (3.4-5.0) g/dL Globulin (2.6-4.0) g/dL Albumin/Globulin Ratio (0.9-1.6) Lipase (73-393) U/L Urine Color YELLOW Urine Appearance CLEAR Urine pH 5.5 (5.0-8.0) Ur Specific Kermit >= 1.030 (1.001-1.035) Urine Protein NEGATIVE (NEGATIVE) mg/dL Urine Glucose (UA) NEGATIVE (NEGATIVE) mg/dL Urine Ketones NEGATIVE (NEGATIVE) mg/dL Urine Occult Blood MODERATE H (NEGATIVE) Urine Nitrite NEGATIVE (NEGATIVE) Urine Bilirubin NEGATIVE (NEGATIVE) Urine Urobilinogen 0.2 (<2.0) EU/dL Ur Leukocyte Esterase NEGATIVE (NEGATIVE) Urine RBC 1-2 (0-2/HPF) Urine WBC 0-1 (0-5/HPF) Ur Epithelial Cells RARE (NONE-FEW) Urine Bacteria RARE (NEGATIVE) Urine Opiates Screen NEGATIVE (NEGATIVE) Ur Oxycodone Screen NEGATIVE (NEGATIVE) Urine Methadone Screen NEGATIVE (NEGATIVE) Ur Barbiturates Screen NEGATIVE (NEGATIVE) Ur Phencyclidine Scrn NEGATIVE (NEGATIVE) Ur Amphetamine Screen NEGATIVE (NEGATIVE) U Methamphetamines Scrn NEGATIVE (NEGATIVE) U Benzodiazepines Scrn NEGATIVE (NEGATIVE) U Cocaine Metab Screen NEGATIVE (NEGATIVE) U Marijuana (THC) Screen NEGATIVE (NEGATIVE) Meds: Medications Discontinued Medications Generic Name Dose Route Start Last Admin Trade Name Vika PRN Reason Stop Dose Admin Sodium Chloride 1,000 mls @ 999 mls/hr 05/15/19 22:12 05/15/19 22:30 Normal Saline IV 05/15/19 23:12 999 mls/hr STAT ONE Administration Ketorolac Tromethamine 30 mg 05/15/19 22:12 05/15/19 22:32 Toradol IVPUSH 05/15/19 22:13 30 mg ONETIME ONE Administration Ondansetron HCl 4 mg 05/15/19 22:12 05/15/19 22:30 Zofran IVPUSH 05/15/19 22:13 4 mg ONETIME ONE Administration Departure - Departure Time of Disposition: 00:12 Disposition: Home, Self-Care 01 Condition: Good Clinical Impression: Hernia, Abdominal pain - Discharge Information Referrals: Juan Antonio Mccall MD [Primary Care Provider] - Forms: ED Department Discharge Additional Instructions: The following information is given to patients seen in the emergency department who are being discharged to home. This information is to outline your options for follow-up care. We provide all patients seen in our emergency department with a follow-up referral. The need for follow-up, as well as the timing and circumstances, are variable depending upon the specifics of your emergency department visit. If you don't have a primary care physician on staff, we will provide you with a referral. We always advise you to contact your personal physician following an emergency department visit to inform them of the circumstance of the visit and for follow-up with them and/or the need for any referrals to a consulting specialist. The emergency department will also refer you to a specialist when appropriate. This referral assures that you have the opportunity for followup care with a specialist. All of these measure are taken in an effort to provide you with optimal care, which includes your followup. Under all circumstances we always encourage you to contact your private physician who remains a resource for coordinating your care. When calling for followup care, please make the office aware that this follow-up is from your recent emergency room visit. If for any reason you are refused follow-up, please contact the [facility] emergency department at and asked to speak to the emergency department charge nurse. [facility] Specialty Care - General Surgery Professional Building [address] [place] [address], [address] [place] [address] Follow-[address] Rivera in office at 8 AM tomorrow return as needed as discussed
[2019-05-15 22:48] LABS: CHLORIDE,CL 105 mmol/L (98-107); SODIUM,NA 142 mmol/L (136-148)
--- NOTE | 2019-05-16 00:03 | CT ---
INDICATION: Abdominal pain TECHNIQUE: CT Abdomen and pelvis without i.v. contrast. Coronal and sagittal reformats were obtained. COMPARISON: None FINDINGS: Moderate degradation of image quality noted due to body habitus and motion artifact. Lower chest: There are 2-3 mm nodules in the left lower lobe and abutting the left major fissure, too small to further characterize especially with motion artifact. Liver: Unremarkable. Spleen: Unremarkable. Pancreas: Unremarkable. Gallbladder: Previous cholecystectomy noted without significant intra- or extrahepatic biliary ductal dilatation seen. Kidney: There is an 8 mm stone in the midzone and lower pole of the left kidney. The right kidney is unremarkable in appearance. Adrenal: Unremarkable. Bowel: A small paraumbilical hernia is present containing fat and a short segment of small bowel without obstruction. The appendix is normal in appearance and size. Vascular: Unremarkable. Lymph: Unremarkable. Peritoneum: Unremarkable. No pneumoperitoneum is seen. No significant ascites is noted. Pelvis: Unremarkable. Soft tissue: Unremarkable. Bone: Unremarkable for age. IMPRESSION: 1. A small paraumbilical hernia is present containing fat and a short segment of small bowel without obstruction. Dictated by Horacio Ontiveros MD @ 05/16/2019 12:02:52 AM Please note that all CT scans at this facility use dose modulation, iterative reconstruction, and/or weight-based dosing when appropriate to reduce radiation dose to as low as reasonably achievable. Dictated by: Horacio Ontiveros MD @ 05/16/2019 00:03:01 (Electronically Signed)
[2019-05-16] MEDS ORDERED: Acetaminophen/HYDROcodone 325-10 MG Tab PO ONE (00:13)
[2019-05-16 00:30] VITALS: BP 148/83
== END 2019-05-16 00:29 | disposition home or self-care (01) ==
LOC: MW.ED 22:05
DX: K42.9 Umbilical hernia without obstruction or gangrene (principal); I10 Essential (primary) hypertension; M19.90 Unspecified osteoarthritis, unspecified site; F41.9 Anxiety disorder, unspecified; F32.9 Major depressive disorder, single episode, unspecified; E66.9 Obesity, unspecified; Z79.899 Other long term (current) drug therapy
CPT/HCPCS: 36415; 74176; 80053; 80305; 81001; 83690; 85025; 85610; 96361; 96374; 96375; 99284; A9270; J1885; J2405; J7040

== ENCOUNTER 2019-05-17 06:32 | Day surgery (SDC) | payer OTHER ==
[~2019-05-17 06:32] MED LIST: Lactated Ringers 1,000 ML IV SCH; Sodium Chloride 0.9% 10 ML SDV IV PRN; Sodium Chloride 0.9% 10 ML Syringe FLUSH PRN; Sodium Chloride 0.9% 2.5 ML Syringe FLUSH PRN; ceFAZolin 2 GM in Premix Bag 1 BAG IV ONE
[2019-05-17] MEDS ORDERED: Rocuronium 100 MG/10 ML Syringe ONE (07:23)
[2019-05-17] MEDS ORDERED: Propofol 200 MG/20 ML SDV ONE (07:23)
[2019-05-17] MEDS ORDERED: Lidocaine 2% 5 ML SDV ONE (07:23)
[2019-05-17] MEDS ORDERED: Midazolam 1 MG/ML 2 ML SDV ONE (07:23)
[2019-05-17] MEDS ORDERED: fentaNYL 250 MCG/5 ML SDV ONE (07:24)
[2019-05-17] MEDS ORDERED: Bupivacaine 0.5% 30 ML SDV ONE (07:28)
--- NOTE | 2019-05-17 07:48 | PCM.PREANE ---
Preanesthetic Assessment - Anesthesia/Transfusion/Family Hx Anesthesia History: Prior Anesthesia Reaction Other Type of Anesthesia Reaction Comment: feels very SOB when waking up Family History of Anesthesia Reaction: No Transfusion History: No Prior Transfusion(s) Intubation History: Unknown - Review of Systems General: No Symptoms Pulmonary: No Symptoms Cardiovascular: No Symptoms Gastrointestinal: No Symptoms Neurological: No Symptoms Other: Reports: None - Physical Assessment NPO Status Date: 05/16/19 NPO Status Time: 23:30 Vital Signs: Last Vital Signs Temp 37.0 C 05/17/19 06:45 Pulse 83 05/17/19 06:45 Resp 19 05/17/19 06:45 BP 165/111 H 05/17/19 06:45 Pulse Ox 95 05/17/19 06:45 Height: 5 ft 11 in Weight: 165.108 kg ASA Class: 3 Mental Status: Alert & Oriented x3 Airway Class: Mallampati = 2 Dentition: Reports: Normal Dentition Thyro-Mental Finger Breadths: 3 Mouth Opening Finger Breadths: 3 ROM/Head Extension: Full Lungs: Clear to Auscultation, Normal Respiratory Effort Cardiovascular: Regular Rate, Regular Rhythm - Allergies Allergies/Adverse Reactions: Allergies Allergy/AdvReac Type Severity Reaction Status Date / Time No Known Allergies Allergy Verified 05/16/19 15:45 - Blood Blood Available: No - Anesthesia Plan Pre-Op Medication Ordered: None - Acknowledgements Anesthesia Type Planned: General Anesthesia Pt an Appropriate Candidate for the Planned Anesthesia: Yes Alternatives and Risks of Anesthesia Discussed w Pt/Guardian: Yes Pt/Guardian Understands and Agrees with Anesthesia Plan: Yes PreAnesthesia Questionnaire - Past Health History Medical/Surgical History: Denies Medical/Surgical History HEENT History: Reports: Other (See Below) Other HEENT History: uses reading glasses Cardiovascular History: Reports: Hypertension Respiratory History: Reports: Sleep Apnea Other Respiratory History: uses CPAP Gastrointestinal History: Reports: Other (See Below) Other Gastrointestinal History: occasional heartburn Genitourinary History: Reports: Renal Calculus Other Genitourinary History: several kidney stones Musculoskeletal History: Reports: Arthritis Psychiatric History: Reports: Anxiety, Depression Endocrine/Metabolic History: Reports: Obesity/BMI 30+ (BMI 50.8) Dermatologic History: Reports: Psoriasis - Infectious Disease History Infectious Disease History: Reports: Chicken Pox - Past Surgical History Head Surgeries/Procedures: Reports: None GI Surgical History: Reports: Cholecystectomy, Hernia, Abdominal Other GI Surgeries/Procedures: hx of Umbilical hernia repair Female Surgical History: Reports: Kidney stone extraction Male Surgical History: Reports: Lithotripsy (ES[facility]) Other Male Surgeries/Procedures: currently has a left kidney stone - SUBSTANCE USE Tobacco Use Within Last Twelve Months: Snuff/Dip, Other (See Below) Recreational Drug Use History: No - HOME MEDS Home Medications: Home Meds hydroCHLOROthiazide [Hydrochlorothiazide] 25 mg PO DAILY 04/27/14 [History] DULoxetine [Cymbalta] 90 mg PO DAILY 08/07/15 [History] Metoprolol Succinate 200 mg PO QAM 05/16/19 [History] oxyCODONE HCl/Acetaminophen [Endocet 7.5-325 mg Tablet] 1 tab PO Q6H PRN [History] - CURRENT (IN HOUSE) MEDS Current Meds: Current Medications Lactated Ringer's (Ringers, Lactated) 1,000 mls @ 125 mls/hr IV ASDIRECTED ADIN Last Admin: 05/17/19 07:00 Dose: 125 mls/hr Sodium Chloride (Saline Flush) 10 ml FLUSH ASDIRECTED PRN PRN Reason: Keep Vein Open Sodium Chloride (Saline Flush) 2.5 ml FLUSH ASDIRECTED PRN PRN Reason: Keep Vein Open Sodium Chloride (Normal Saline) 10 ml IV ASDIRECTED PRN PRN Reason: IV Use Discontinued Medications Bupivacaine HCl (Marcaine 0.5%) Confirm Administered Dose 30 ml .ROUTE .STK-MED ONE Stop: 05/17/19 07:29 Fentanyl (Sublimaze) Confirm Administered Dose 250 mcg .ROUTE .STK-MED ONE Stop: 05/17/19 07:25 Cefazolin Sodium/Dextrose 2 gm (/ Premix) 50 mls @ 100 mls/hr IV ONETIME ONE Stop: 05/16/19 14:40 Lidocaine (Xylocaine-Mpf 2%) Confirm Administered Dose 5 ml .ROUTE .STK-MED ONE Stop: 05/17/19 07:24 Midazolam HCl (Versed 1 Mg/Ml) Confirm Administered Dose 2 mg .ROUTE .STK-MED ONE Stop: 05/17/19 07:24 Propofol (Diprivan 20 Ml) Confirm Administered Dose 200 mg .ROUTE .STK-MED ONE Stop: 05/17/19 07:24 Rocuronium [place] (Zemuron) Confirm Administered Dose 100 mg .ROUTE .[facility] ONE Stop: 05/17/19 07:24
[2019-05-17] MEDS ORDERED: Albuterol 6.7 GM Inhaler INH ONE (08:15)
[2019-05-17] MEDS ORDERED: Ondansetron 4 MG/2 ML SDV ONE (08:25)
[2019-05-17] MEDS ORDERED: Dexamethasone 4 MG/ML 5 ML MDV ONE (08:25)
[2019-05-17] MEDS ORDERED: ePHEDrine 50 MG/ML SDV ONE (08:52)
[2019-05-17] MEDS ORDERED: Sodium Chloride 0.9% 20 ML ONE (08:52)
[2019-05-17] MEDS ORDERED: Sugammadex Sodium 200 MG/2 ML VIAL ONE (08:55)
[2019-05-17] MEDS ORDERED: Phenylephrine/Normal Saline 100 MCG/ML 10 ML Syringe ONE (08:58)
[2019-05-17] MEDS ORDERED: ceFAZolin 1 GM Vial ONE (09:10)
[2019-05-17] MEDS ORDERED: Atropine 0.1 MG/ML 10 ML Syringe IVPUSH PRN ×2 (09:28)
[2019-05-17] MEDS ORDERED: 50% Dextrose in Water 50 ML Syringe IVPUSH PRN (09:28)
[2019-05-17] MEDS ORDERED: Naloxone 0.4 MG/ML Syringe IVPUSH PRN (09:28)
[2019-05-17] MEDS ORDERED: Albuterol 0.083% 2.5 MG/3 ML Neb Soln NEB PRN (09:28)
[2019-05-17] MEDS ORDERED: fentaNYL 100 MCG/2 ML SDV IVPUSH PRN (09:28)
[2019-05-17] MEDS ORDERED: EPINEPHrine 1:10,000 1 MG/10 ML Syringe IVPUSH PRN (09:28)
[2019-05-17] MEDS ORDERED: Phenylephrine 1% 10 MG/ML SDV ONE (09:29)
[2019-05-17] MEDS ORDERED: Octyl 2-Cyanoacrylate 1 Tube ONE (10:14)
[2019-05-17] MEDS ORDERED: Bisacodyl 5 MG Tab PO PRN (10:36)
[2019-05-17] MEDS ORDERED: HYDROmorphone 2 MG/ML Syringe IVPUSH PRN (10:36)
--- NOTE | 2019-05-17 10:41 | PCM.OPNOTE ---
<Julio Lopez - Last Filed: 05/17/19 10:38> - General Post-Op/Procedure Note Date of Surgery/Procedure: 05/17/19 Operative Procedure(s): Incisional abdominal hernia repair with mesh Findings: Recurrent abdominal hernia Pre Op Diagnosis: Recurrent abdominal hernia Post-Op Diagnosis: Reccurent incisional abdominal hernia repair with mesh Anesthesia Technique: General ET Tube Primary Surgeon: Karuna Rivera Fluid Replacement, Intraop: 2,000 Output, Urine Amount: 500 EBL in mLs: 25 Complications: None Condition: Good <Karuna Rivera - Last Filed: 05/17/19 12:00> - General Post-Op/Procedure Note Findings: 4.5 cm infraumbilical recurrent incisional hernia containing omentum and small bowel. Surrounding fascia thin Free Text/Narrative:: Intake & Output 05/16/19 05/17/19 05/17/19 22:59 06:59 14:59 Intake Total 2000 Output Total 500 Balance 1500
[2019-05-17] MEDS ORDERED: Albuterol/Ipratropium 3.0-0.5 MG/3 ML Neb Soln NEB ONE (11:01)
[2019-05-17] MEDS: Ketorolac 30 MG/ML SDV IVPUSH SCH ×3 (11:14→21:47)
--- NOTE | 2019-05-17 12:23 | PCM.POSTAN ---
POST ANESTHESIA ASSESSMENT - MENTAL STATUS Mental Status: Alert, Oriented - VITAL SIGNS Vital Signs: Last Vital Signs Temp 36.4 C 05/17/19 10:41 Pulse 88 05/17/19 12:12 Resp 13 05/17/19 12:12 BP 129/56 L 05/17/19 12:12 Pulse Ox 96 05/17/19 12:12 - RESPIRATORY Respiratory Status: Respiratory Rate WNL, Airway Patent, O2 Saturation Stable - CARDIOVASCULAR CV Status: Pulse Rate WNL, Blood Pressure Stable - GASTROINTESTINAL GI Status: No Symptoms - PAIN Pain Score: 6 - POST OP HYDRATION Hydration Status: Adequate & Stable - OBSERVATIONS Free Text/Narrative:: no anesthesia problems
[2019-05-17] MEDS: Cyclobenzaprine 10 MG Tab PO SCH ×2 (13:13→21:47)
[2019-05-17] MEDS: Acetaminophen/oxyCODONE 325-5 MG Tab PO PRN ×3 (13:13→23:25)
[2019-05-18] MEDS: Ketorolac 30 MG/ML SDV IVPUSH SCH (05:05)
[2019-05-18] MEDS: Cyclobenzaprine 10 MG Tab PO SCH (05:05)
[2019-05-18] MEDS: Acetaminophen/oxyCODONE 325-5 MG Tab PO PRN (05:11)
--- NOTE | 2019-05-18 07:13 | PCM48HPAN ---
Post Anesthesia Note - EVALUATION WITHIN 48HRS OF ANESTHETIC Vital Signs in Normal Range: Yes Patient Participated in Evaluation: Yes Respiratory Function Stable: Yes Airway Patent: Yes Cardiovascular Function Stable: Yes Hydration Status Stable: Yes Pain Control Satisfactory: Yes Nausea and Vomiting Control Satisfactory: Yes Mental Status Recovered: Yes Vital Signs: Last Vital Signs Temp 98.1 F 05/18/19 04:36 Pulse 95 05/18/19 04:36 Resp 20 05/18/19 04:36 BP 131/70 05/18/19 04:36 Pulse Ox 93 L 05/18/19 04:36 - COMMENTS/OBSERVATIONS Free Text/Narrative:: Super Morbid obesity, with mild hypoxia and ALEJANDRO post-op; pt was kept overnight for observation and continued weaning of O2. Nursing slowly weaning oxygen since yesterday. VSS.
[2019-05-18 07:59] VITALS: BP 145/82
--- NOTE | 2019-05-18 08:41 | PCM.SURGPN ---
- General Info Date of Service: 05/18/19 Date of Surgery/Procedure: 05/17/19 POD#: 1 Functional Status: Reports: Pain Controlled, Tolerating Diet, Ambulating, Urinating - Review of Systems General: Reports: No Symptoms HEENT: Reports: No Symptoms Pulmonary: Reports: No Symptoms Cardiovascular: Reports: No Symptoms Gastrointestinal: Reports: No Symptoms Genitourinary: Reports: No Symptoms Musculoskeletal: Reports: No Symptoms - Patient Data Vitals - Most Recent: Last Vital Signs Temp 36.6 C 05/18/19 07:58 Pulse 88 05/18/19 07:58 Resp 20 05/18/19 07:58 BP 145/82 H 05/18/19 07:58 Pulse Ox 98 05/18/19 07:58 Weight - Most Recent: 165.108 kg I&O - Last 24 Hours: Intake & Output 05/17/19 05/18/19 05/18/19 22:59 06:59 14:59 Intake Total 580 450 Output Total 1260 600 Balance -680 -150 Med Orders - Current: Current Medications Bisacodyl (Dulcolax) 5 mg PO DAILY PRN PRN Reason: Constipation Cyclobenzaprine HCl (Flexeril) 10 mg PO TID ADIN Last Admin: 05/18/19 05:05 Dose: 10 mg Hydromorphone HCl (Dilaudid) 0.5 mg IVPUSH Q1H PRN PRN Reason: Pain (severe 7-10) Oxycodone/Acetaminophen (Percocet 325-5 Mg) 2 tab PO Q4H PRN PRN Reason: Pain (moderate 4-6) Last Admin: 05/18/19 05:11 Dose: 2 tab Sodium Chloride (Saline Flush) 10 ml FLUSH ASDIRECTED PRN PRN Reason: Keep Vein Open Sodium Chloride (Saline Flush) 2.5 ml FLUSH ASDIRECTED PRN PRN Reason: Keep Vein Open Sodium Chloride (Normal Saline) 10 ml IV ASDIRECTED PRN PRN Reason: IV Use Discontinued Medications Albuterol (Proventil Hfa) Confirm Administered Dose 6.7 gm INH .STK-MED ONE Stop: 05/17/19 08:16 Albuterol (Proventil Neb Soln) 2.5 mg NEB ONETIME PRN PRN Reason: Wheezing Albuterol/Ipratropium (Duoneb 3.0-0.5 Mg/3 Ml) 3 ml NEB ONETIME ONE Stop: 05/17/19 11:02 Last Admin: 05/17/19 11:07 Dose: 3 ml Atropine Sulfate (Atropine 0.1 Mg/Ml) 0.5 mg IVPUSH ASDIRECTED PRN PRN Reason: Hypo-perfusion Atropine Sulfate (Atropine 0.1 Mg/Ml) 1 mg IVPUSH ASDIRECTED PRN PRN Reason: Hypo-Perfusion Bupivacaine HCl (Marcaine 0.5%) Confirm Administered Dose 30 ml .ROUTE .STK-MED ONE Stop: 05/17/19 07:29 Cefazolin Sodium (Ancef) Confirm Administered Dose 1 gm .ROUTE .STK-MED ONE Stop: 05/17/19 09:11 Dexamethasone (Dexamethasone) Confirm Administered Dose 20 mg .ROUTE .STK-MED ONE Stop: 05/17/19 08:26 Dextrose/Water (Dextrose 50% In Water) 50 ml IVPUSH ASDIRECTED PRN PRN Reason: Hypoglycemia Ephedrine Sulfate (Ephedrine Sulfate) Confirm Administered Dose 50 mg .ROUTE .STK-MED ONE Stop: 05/17/19 08:53 Epinephrine HCl (Epinephrine 1:10,000) 1 mg IVPUSH ASDIRECTED PRN PRN Reason: ACLS Guidelines Fentanyl (Sublimaze) Confirm Administered Dose 250 mcg .ROUTE .STK-MED ONE Stop: 05/17/19 07:25 Fentanyl (Sublimaze) 50 mcg IVPUSH Q5M PRN PRN Reason: Pain Cefazolin Sodium/Dextrose 2 gm (/ Premix) 50 mls @ 100 mls/hr IV ONETIME ONE Stop: 05/16/19 14:40 Last Admin: 05/17/19 11:16 Dose: Not Given Lactated Ringer's (Ringers, Lactated) 1,000 mls @ 125 mls/hr IV ASDIRECTED ADIN Last Admin: 05/17/19 07:00 Dose: 125 mls/hr Cefazolin Sodium/Dextrose (Ancef) Confirm Administered Dose 50 mls @ as directed .ROUTE .STK-MED ONE Stop: 05/17/19 08:17 Sodium Chloride (Normal Saline) Confirm Administered Dose 20 mls @ as directed .ROUTE .STK-MED ONE Stop: 05/17/19 08:53 Acetaminophen (Ofirmev) Confirm Administered Dose 100 mls @ as directed IV .STK- MED ONE Stop: 05/17/19 08:56 Ketorolac Tromethamine (Toradol) 30 mg IVPUSH Q6H ADIN Stop: 05/18/19 04:46 Last Admin: 05/18/19 05:05 Dose: 30 mg Lidocaine (Xylocaine-Mpf 2%) Confirm Administered Dose 5 ml .ROUTE .STK-MED ONE Stop: 05/17/19 07:24 Midazolam HCl (Versed 1 Mg/Ml) Confirm Administered Dose 2 mg .ROUTE .STK-MED ONE Stop: 05/17/19 07:24 Naloxone HCl (Narcan) 0.1 mg IVPUSH ASDIRECTED PRN PRN Reason: Respiratory Depression Octyl Cyanoacrylate (Dermabond Advance) Confirm Administered Dose 1 applic .ROUTE .STK-MED ONE Stop: 05/17/19 10:15 Ondansetron HCl (Zofran) Confirm Administered Dose 4 mg .ROUTE .STK-MED ONE Stop: 05/17/19 08:26 Phenylephrine HCl (Phenylephrine In Ns 100 Mcg/Ml) Confirm Administered Dose 1 mg .ROUTE .STK-MED ONE Stop: 05/17/19 08:59 Phenylephrine HCl (Leroy-Synephrine) Confirm Administered Dose 10 mg .ROUTE .STK- MED ONE Stop: 05/17/19 09:30 Propofol (Diprivan 20 Ml) Confirm Administered Dose 200 mg .ROUTE .STK-MED ONE Stop: 05/17/19 07:24 Rocuronium Pax (Zemuron) Confirm Administered Dose 100 mg .ROUTE .STK-MED ONE Stop: 05/17/19 07:24 Succinylcholine Chloride (Succinylcholine Chloride) Confirm Administered Dose 200 mg .ROUTE .STK-MED ONE Stop: 05/17/19 10:31 Sugammadex Sodium (Bridion) Confirm Administered Dose 400 mg .ROUTE .STK-MED ONE Stop: 05/17/19 08:56 - Exam Wound/Incisions: Healing Well, Dressing Dry and Intact, No Drainage General: Alert, Oriented, Cooperative Lungs: Normal Respiratory Effort Cardiovascular: Regular Rate GI/Abdominal Exam: Soft, Non-Tender, No Distention, No Mass Skin: Warm, Dry, Intact Neurological: No New Focal Deficit Psy/Mental Status: Alert, Normal Affect, Normal Mood - Problem List & Annotations (1) Hernia SNOMED Code(s): 40714344 Code(s): K46.9 - UNSPECIFIED ABDOMINAL HERNIA WITHOUT OBSTRUCTION OR GANGRENE Status: Acute Current Visit: No (2) Incarcerated hernia SNOMED Code(s): 68177434 Code(s): K46.0 - UNSP ABDOMINAL HERNIA WITH OBSTRUCTION, WITHOUT GANGRENE Status: Acute Current Visit: No - Problem List Review Problem List Initiated/Reviewed/Updated: Yes - My Orders Last 24 Hours: Active Orders 24 hr Category Date Time Status Notify Provider Vital Signs [RC] ASDIRECTED Care 05/17/19 09:28 Active Oxygen Therapy [RC] PRN Care 05/17/19 10:36 Active Pulse Oximetry [RC] INTERMITTENT Care 05/17/19 10:40 Active RT Aerosol Therapy [RC] ASDIRECTED Care 05/17/19 11:01 Active RT Incentive Spirometry [RC] Q1HWA Care 05/17/19 10:36 Active Up With Assistance [RC] ASDIRECTED Care 05/17/19 10:36 Active Vital Signs [RC] Q4H Care 05/17/19 10:36 Active Regular Diet [DIET] Diet 05/17/19 Lunch Active Acetaminophen/oxyCODONE [Percocet 325-5 MG] Med 05/17/19 10:36 Active 2 tab PO Q4H PRN Bisacodyl [Dulcolax] Med 05/17/19 10:36 Active 5 mg PO DAILY PRN Cyclobenzaprine [Flexeril] Med 05/17/19 14:00 Active 10 mg PO TID HYDROmorphone [Dilaudid] Med 05/17/19 10:36 Active 0.5 mg IVPUSH Q1H PRN Abdominal Binder [OM.PC] Per Unit Routine Oth 05/17/19 10:40 Ordered Medication Orders Bisacodyl (Dulcolax) 5 mg PO DAILY PRN PRN Reason: Constipation Cyclobenzaprine HCl (Flexeril) 10 mg PO TID [facility] Last Admin: 05/18/19 05:05 Dose: 10 mg Admin: 05/17/19 21:47 Dose: 10 mg Admin: 05/17/19 13:13 Dose: 10 mg Hydromorphone HCl (Dilaudid) 0.5 mg IVPUSH Q1H PRN PRN Reason: Pain (severe 7-10) Oxycodone/Acetaminophen (Percocet 325-5 Mg) 2 tab PO Q4H PRN PRN Reason: Pain (moderate 4-6) Last Admin: 05/18/19 05:11 Dose: 2 tab Admin: 05/17/19 23:25 Dose: 2 tab Admin: 05/17/19 18:37 Dose: 2 tab Admin: 05/17/19 13:13 Dose: 2 tab Sodium Chloride (Saline Flush) 10 ml FLUSH ASDIRECTED PRN PRN Reason: Keep Vein Open Sodium Chloride (Saline Flush) 2.5 ml FLUSH ASDIRECTED PRN PRN Reason: Keep Vein Open Sodium Chloride (Normal Saline) 10 ml IV ASDIRECTED PRN PRN Reason: IV Use - Assessment Assessment (Free Text/Narrative):: Patients vitals normal over the night. Doing well this morning with minimal pain. D/C to home.
--- NOTE | 2019-05-18 14:56 | OR ---
SURGEON: KARUNA RIVERA MD DATE OF PROCEDURE: 05/17/2019 PREOPERATIVE DIAGNOSIS: Recurrent incisional hernia. POSTOPERATIVE DIAGNOSIS: Recurrent incisional hernia. PROCEDURE PERFORMED: Recurrent incisional hernia repair. PRIMARY SURGEON: Karuna Rivera MD. WELFARE ADVISER: certified pathology assistant: Julio Lewis MD. FLUIDS: 2000 mL of crystalloid. ESTIMATED BLOOD LOSS: 25 mL. URINE OUTPUT: 500 mL. FINDINGS: 4.5 cm in diameter recurrent incisional hernia along the inferior aspect of his previous hernia repair. COMPLICATIONS: None. INDICATIONS: The patient is a 49-year-old male who presents with a recurrent incisional hernia. He had an emergent repair of a strangulated incisional hernia back in September of this year. Four days ago, he noticed a bulge along the inferior part of the incision and it was painful. He presented to the emergency room the night before and CT scan of the abdomen showed a small recurrent hernia containing small bowel with no evidence of obstruction or strangulation. I saw the patient in clinic the next morning, and he was tender along the area, but had no evidence of strangulation. The decision was made to proceed with an urgent repair with mesh. I explained the procedure; expected perioperative course; and risks including bleeding, infection, damage to surrounding structures, or recurrence. The patient and I had a long discussion regarding weight loss as a way to prevent this from reoccurring. He verbalized understanding and wishes to proceed. PROCEDURE IN DETAIL: The patient was brought into the OR and placed on the OR table in supine position. A time-out was completed verifying the patient's name, age, date of , allergies, and procedure to be performed. General endotracheal anesthesia was induced. The abdomen was prepped and draped in usual standard fashion. I anesthetized the lower midline scar with 0.5% Marcaine plain. A 10 blade was used to make an incision along the lower half of the previous incision. Cautery was used to dissect down through the level of the subcutaneous fat. The patient had a large amount of subcutaneous fat present before I reached the level of the fascia. I then used sharp dissection using Metzenbaum scissors to dissect out the hernia sac from the surrounding subcutaneous fat. The hernia sac itself was large and due to scar tissue was difficult to dissect around. I elevated the hernia sac with pickups and incised it sharply with my Metzenbaum scissors. Entry into the abdomen was palpated digitally. I then dissected the hernia sac free of the surrounding fascia and off the underlying structures. The hernia sac itself was scarred to the underlying omentum. Once this was completely cleared away, I inspected my operative field. The hernia measured 4.5 cm in diameter. The fascia itself was tenuous and thin, but I did not palpate any further hernias along the superior part of my previous incision. The decision was made to place a mesh underlay patch. An 8 cm Ventralex patch was placed under the fascia and secured to the underside of it using interrupted 0 Ethibond sutures in a circumferential fashion. Great care was taken to avoid damage to the underlying bowel and omentum. Before tying my stitches down, I palpated underneath my mesh and there were no attachments to the underlying structures. The sutures were then secured and the mesh appeared to be in good position. I then closed the fascia over the top of this patch with interrupted 0 Ethibond sutures. The wound was irrigated with a normal saline and Ancef solution. Hemostasis was achieved with electrocautery and the wound appeared to be dry. I closed the overlying subcutaneous fat in layers using interrupted 3-0 Vicryl sutures. The skin was then closed with a running 4-0 Monocryl stitch. Dermabond and sterile dressings were applied. The patient tolerated the procedure well. At the end of the case, he was straight catheterized and 500 mL of urine was obtained. He was transferred to the PACU in stable condition. All counts were complete and correct at the end of the case. RONALD MARIE /[id number]
== END 2019-05-18 09:40 | disposition home or self-care (01) ==
LOC: MW.SDS 06:32 → MW.MS 10:34 → MW.SDS 05-18 09:40
PROVIDERS: ATTEND Surgery
DX: K43.2 Incisional hernia without obstruction or gangrene (principal); G47.33 Obstructive sleep apnea (adult) (pediatric); M19.90 Unspecified osteoarthritis, unspecified site; F41.9 Anxiety disorder, unspecified; F32.9 Major depressive disorder, single episode, unspecified; E66.9 Obesity, unspecified; Z68.43 Body mass index [BMI] 50.0-59.9, adult; Z99.89 Dependence on other enabling machines and devices; Z79.899 Other long term (current) drug therapy
CPT/HCPCS: 49565; 49568; 94640; A9270; C1781; J0131; J0330; J0690; J1100; J1885; J2001; J2250; J2370; J2405; J2704; J3010; J3490; J7120; J7620-GY

== ENCOUNTER 2019-11-01 20:03 | Emergency (ER) | payer OTHER ==
--- NOTE | 2019-11-01 20:38 | EDM.PDOC ---
ED HPI GENERAL MEDICAL PROBLEM - General Chief Complaint: Respiratory Problem Stated Complaint: ARM AND LEG MUSCLE PAIN Time Seen by Provider: 11/01/19 20:26 Source of Information: Reports: Patient - History of Present Illness INITIAL COMMENTS - FREE TEXT/NARRATIVE: CC chest pain and shortness of breath HPI: This is a 49-year-old male who is morbidly obese. Patient's recently undergone a primary care work-up for what sounds like congestive heart failure. Patient has yet to meet with a marionette performer for echocardiogram and further evaluation. Patient was started on a course of diuretics 15 days ago he took those for 5 days and stopped taking the Lasix after that. Patient lost about 20 pounds in weight was feeling better. Now he is noticing pain and swelling throughout his legs. At 6 PM he started developing substernal chest pressure rated a 3 out of 10 at maximum and a 2 out of 10 at present it is been constant. Not associated with any new shortness of breath nausea diaphoresis arm or jaw pain. 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 been clean for 3 months Social History: Positive for tobacco, negative for alcohol, negative for street drugs or marijuana for the past 3 months no history of IVDA Family history: Hypertension arterial insufficiency ROS: see chart PE: VS afebrile vital signs stable General: No apparent distress patient is morbidly obese Head: Atraumatic normocephalic no lumps bumps or bruises Eyes: EOMI PERRLA Ears: TMs intact no hemotympanum no signs of infection no mastoid tenderness Nose: No epistaxis nares patent no septal wall hematoma Throat: No pharyngeal erythema or exudate no tonsillar enlargement Neck: Supple, no cervical lymphadenopathy Chest wall: No point tenderness Heart: Regular rate and rhythm without murmur gallop or rub Lungs: Clear to auscultation and percussion without rales rhonchi or wheeze Abdomen: Soft nontender nondistended without guarding rigidity or rebound Neck: No spinal point tenderness full range of motion in all 6 directions Back: No spinal paraspinal or CVA tenderness Extremities: full rom through out. no effusions 1-2+ pitting edema in the lower extremities no calf tenderness Marie sign negative skin: Warm dry intact no rashes neurologic: cranial nerves II through XII intact. No focal motor or sensory deficits noted MDM: Differential diagnosis: Congestive heart failure acute coronary syndrome pulmonary embolism pneumonia edema renal failure ED course: This is a morbidly obese 49-year-old male that comes in with substernal chest pressure shortness of breath and leg swelling and pain. His work-up shows a normal EKG and serial troponins that were negative. No signs of acute coronary syndrome. His BTN P and chest x-ray were negative so no signs of congestive heart failure. D-dimer was negative so I do not think he has DVTs or pulmonary emboli. Chest x-ray showed a normal mediastinum and no pneumonia or other abnormalities so no signs of pneumonia pneumothorax or again congestive failure. I think the patient's leg pain is secondary to edema probably from vascular insufficiency secondary to his ongoing obesity. I will encourage the patient to take his diuretics again and to follow-up with his primary care doctor for further evaluation. At this point no signs of any intrathoracic emergency patient is not hypoxic. Stable for discharge Diagnosis: Chest pain Disposition: Home Extremeties Pain Score (Numeric/FACES): 5 - Related Data Allergies Allergy/AdvReac Type Severity Reaction Status Date / Time No Known Allergies Allergy Verified 11/01/19 20:27 Home Meds: Home Meds DULoxetine [Cymbalta] 60 mg PO DAILY 08/07/15 [History] Celecoxib 200 mg PO DAILY 11/01/19 [History] Chlorthalidone 25 mg PO DAILY 11/01/19 [History] Furosemide [Lasix] 20 mg PO DAILY 11/01/19 [History] Labetalol HCl [Labetalol] 20 mg PO DAILY 11/01/19 [History] Losartan [Cozaar] 25 mg PO DAILY 11/01/19 [History] Naltrexone 50 mg PO DAILY 11/01/19 [History] Pantoprazole Sodium 40 mg PO DAILY 11/01/19 [History] Sildenafil [Viagra] 100 mg PO WEEKLY PRN 11/01/19 [History] amLODIPine [Norvasc] 5 mg PO DAILY 11/01/19 [History] buPROPion [buPROPion XL] 150 mg PO DAILY 11/01/19 [History] Past Medical History - Past Health History Medical/Surgical History: Denies Medical/Surgical History HEENT History: Reports: Other (See Below) Other HEENT History: uses reading glasses Cardiovascular History: Reports: Hypertension Respiratory History: Reports: Sleep Apnea Other Respiratory History: uses CPAP Gastrointestinal History: Reports: Other (See Below) Other Gastrointestinal History: occasional heartburn Genitourinary History: Reports: Renal Calculus Other Genitourinary History: several kidney stones Musculoskeletal History: Reports: Arthritis Psychiatric History: Reports: Anxiety, Depression Endocrine/Metabolic History: Reports: Obesity/BMI 30+ Dermatologic History: Reports: Psoriasis - Infectious Disease History Infectious Disease History: Reports: Chicken Pox - Past Surgical History Head Surgeries/Procedures: Reports: None GI Surgical History: Reports: Cholecystectomy, Hernia, Abdominal Other GI Surgeries/Procedures: hx of Umbilical hernia repair Male Surgical History: Reports: Lithotripsy ([facility]) Other Male Surgeries/Procedures: currently has a left kidney stone Social & Family History - Family History Family Medical History: Noncontributory Cardiac: Reports: Hypertension Endocrine/Metabolic: Reports: Diabetes, Type I, Diabetes, type II - Tobacco Use Smoking Status *Q: Never Smoker Second Hand Smoke Exposure: No - Caffeine Use Caffeine Use: Reports: Coffee, Soda - Recreational Drug Use Recreational Drug Use: No ED ROS GENERAL - Review of Systems Review Of Systems: Comprehensive ROS is negative, except as noted in HPI. ED EXAM, GENERAL - Physical Exam Exam: See Below Free Text/Narrative:: See my dictation Course - Vital Signs Last Recorded V/S: Last Vital Signs Temp 35.9 C L 11/01/19 20:27 Pulse 84 11/01/19 21:40 Resp 16 11/01/19 21:40 BP 134/92 H 11/01/19 21:40 Pulse Ox 96 11/01/19 21:40 - Orders/Labs/Meds Orders: Active Orders 24 hr Category Date Time Status EKG 12 Lead [EKG Documentation Completion] [RC] STAT Care 11/01/19 20:32 Active Labs: Laboratory Tests 11/01/19 11/01/19 11/01/19 Range/Units 20:38 20:38 20:38 WBC 12.15 H (4.0-11.0) K/uL RBC 5.10 (4.50-5.90) M/uL Hgb 16.1 (13.0-17.0) g/dL Hct 45.7 (38.0-50.0) % MCV 89.6 (80.0-98.0) fL MCH 31.6 (27.0-32.0) pg MCHC 35.2 (31.0-37.0) g/dL RDW Std Deviation 43.1 (28.0-62.0) fl RDW Coeff of Loren 13 (11.0-15.0) % Plt Count 300 (150-400) K/uL MPV 9.00 (7.40-12.00) fL Neut % (Auto) 58.9 (48.0-80.0) % Lymph % (Auto) 27.9 (16.0-40.0) % Linn % (Auto) 10.1 (0.0-15.0) % Eos % (Auto) 2.5 (0.0-7.0) % Baso % (Auto) 0.6 (0.0-1.5) % Neut # (Auto) 7.2 H (1.4-5.7) K/uL Lymph # (Auto) 3.4 H (0.6-2.4) K/uL Linn # (Auto) 1.2 H (0.0-0.8) K/uL Eos # (Auto) 0.3 (0.0-0.7) K/uL Baso # (Auto) 0.1 (0.0-0.1) K/uL Nucleated RBC % 0.0 /100WBC Nucleated RBCs # 0 K/uL D-Dimer, Quantitative (0.0-0.50) mg/L FEU Sodium 140 (136-148) mmol/L Potassium 3.7 (3.5-5.1) mmol/L Chloride 102 (98-107) mmol/L Carbon Dioxide 27.9 (21.0-32.0) mmol/L BUN 27 H (7.0-18.0) mg/dL Creatinine 1.2 (0.8-1.3) mg/dL Est Cr Clr Drug Dosing 77.73 mL/min Estimated GFR (MDRD) > 60.0 ml/min Glucose 114 H (74-106) mg/dL Calcium 9.3 (8.5-10.1) mg/dL Total Bilirubin 0.2 (0.2-1.0) mg/dL AST 21 (15-37) IU/L ALT 61 (14-63) IU/L Alkaline Phosphatase 87 (46-116) U/L Troponin I < 0.050 (0.000-0.056) ng/mL B-Natriuretic Peptide 10 (<100) PG/ML Total Protein 7.8 (6.4-8.2) g/dL Albumin 3.9 (3.4-5.0) g/dL Globulin 3.9 (2.6-4.0) g/dL Albumin/Globulin Ratio 1.0 (0.9-1.6) 11/01/19 11/01/19 Range/Units 20:38 21:49 WBC (4.0-11.0) K/uL RBC (4.50-5.90) M/uL Hgb (13.0-17.0) g/dL Hct (38.0-50.0) % MCV (80.0-98.0) fL MCH (27.0-32.0) pg MCHC (31.0-37.0) g/dL RDW Std Deviation (28.0-62.0) fl RDW Coeff of Loren (11.0-15.0) % Plt Count (150-400) K/uL MPV (7.40-12.00) fL Neut % (Auto) (48.0-80.0) % Lymph % (Auto) (16.0-40.0) % Linn % (Auto) (0.0-15.0) % Eos % (Auto) (0.0-7.0) % Baso % (Auto) (0.0-1.5) % Neut # (Auto) (1.4-5.7) K/uL Lymph # (Auto) (0.6-2.4) K/uL Linn # (Auto) (0.0-0.8) K/uL Eos # (Auto) (0.0-0.7) K/uL Baso # (Auto) (0.0-0.1) K/uL Nucleated RBC % /100WBC Nucleated RBCs # K/uL D-Dimer, Quantitative 0.30 (0.0-0.50) mg/L FEU Sodium (136-148) mmol/L Potassium (3.5-5.1) mmol/L Chloride (98-107) mmol/L Carbon Dioxide (21.0-32.0) mmol/L BUN (7.0-18.0) mg/dL Creatinine (0.8-1.3) mg/dL Est Cr Clr Drug Dosing mL/min Estimated GFR (MDRD) ml/min Glucose (74-106) mg/dL Calcium (8.5-10.1) mg/dL Total Bilirubin (0.2-1.0) mg/dL AST (15-37) IU/L ALT (14-63) IU/L Alkaline Phosphatase (46-116) U/L Troponin I < 0.050 (0.000-0.056) ng/mL B-Natriuretic Peptide (<100) PG/ML Total Protein (6.4-8.2) g/dL Albumin (3.4-5.0) g/dL Globulin (2.6-4.0) g/dL Albumin/Globulin Ratio (0.9-1.6) Departure - Departure Time of Disposition: 22:28 Disposition: Home, Self-Care 01 Clinical Impression: Chest pain Qualifiers: Chest pain type: chest pain on breathing Qualified Code(s): R07.1 - Chest pain on breathing; R07.81 - Pleurodynia - Discharge Information Referrals: Juan Antonio Mccall MD [Primary Care Provider] - Forms: ED Department Discharge Additional Instructions: Follow-up with your primary care doctor. Return here if your symptoms are getting worse. Continue taking your diuretics. Avoid salt in your diet. Elevate your lower extremities as much as possible. Avoid sugar and carbohydrates in your diet. Sepsis Event Note - Evaluation Sepsis Screening Result: No Definite Risk - Focused Exam Vital Signs: Vital Signs Temp Pulse Resp BP Pulse Ox 11/01/19 21:40 84 16 134/92 H 96 11/01/19 20:27 35.9 C L 100 20 144/97 H 95 Date Exam was Performed: 11/01/19 Time Exam was Performed: 22:26 - My Orders Last 24 Hours: My Active Orders 11/01/19 20:32 EKG 12 Lead [EKG Documentation Completion] [RC] STAT - Assessment/Plan Last 24 Hours: My Active Orders 11/01/19 20:32 EKG 12 Lead [EKG Documentation Completion] [RC] STAT
[2019-11-01 21:11] LABS: BLOOD UREA NITROGEN,BUN 27 mg/dL (7.0-18.0); CARBON DIOXIDE,CO2 27.9 mmol/L (21.0-32.0); CHLORIDE,CL 102 mmol/L (98-107); GLUCOSE RANDOM 114 mg/dL (74-106); POTASSIUM,K 3.7 mmol/L (3.5-5.1); SODIUM,NA 140 mmol/L (136-148)
--- NOTE | 2019-11-01 21:20 | CR ---
INDICATION: chest pain, short of breath, bilateral tingling UE, lightheaded/dizziness CHEST, ONE VIEW An AP radiograph of the chest was performed. Comparison: No previous studies are currently available for comparison. The lungs appear clear and no pleural effusions are identified. The cardiomediastinal silhouette and pulmonary vasculature appear normal, as do the visualized bones. IMPRESSION: No acute intrathoracic abnormality identified. GASTON PALOMO MD [facility] [employer] Dictated by: Sukh Palomo MD @ 11/01/2019 21:17:59 (Electronically Signed)
[2019-11-01 22:40] VITALS: BP 157/109; PULSE 86
== END 2019-11-01 22:40 | disposition home or self-care (01) ==
LOC: MW.ED 20:03
DX: R07.1 Chest pain on breathing (principal); F41.9 Anxiety disorder, unspecified; F32.9 Major depressive disorder, single episode, unspecified; M19.90 Unspecified osteoarthritis, unspecified site; I10 Essential (primary) hypertension; E66.01 Morbid (severe) obesity due to excess calories; Z68.43 Body mass index [BMI] 50.0-59.9, adult
CPT/HCPCS: 36415; 71045; 71045-26; 80053; 83880; 84484; 85025; 85379; 93005; 99285-25

== ENCOUNTER 2020-01-20 05:57 | Emergency (ER) | payer OTHER ==
[2020-01-20] MEDS ORDERED: Ondansetron 4 MG/2 ML SDV IVPUSH ONE (07:31)
[2020-01-20] MEDS ORDERED: Morphine 10 MG/ML Syringe IVPUSH ONE (07:31)
--- NOTE | 2020-01-20 07:34 | EDM.PDOC ---
ED HPI GENERAL MEDICAL PROBLEM - General Chief Complaint: Abdominal Pain Stated Complaint: HERNIA Time Seen by Provider: 01/20/20 07:20 - History of Present Illness INITIAL COMMENTS - FREE TEXT/NARRATIVE: 49-year-old male with a history of polymyalgia rheumatica and morbid obesity with a number of abdominal surgeries in the past with a known lower abdominal hernia that he is slated to have repaired with mesh placement Pawan in 3 days. He has had 2 to 3 days of constant gradually worsening pain associated with nausea without vomiting no fever last bowel movement was last night and was normal for him with exception of being very painful secondary to the hernia. He presents concerned about incarceration. He is not take chronic pain medication the pain is in the right lower quadrant surrounding the site of his known hernia and does not radiate. Left Lower Abdomen Pain Score (Numeric/FACES): 7 - Related Data Allergies Allergy/AdvReac Type Severity Reaction Status Date / Time No Known Allergies Allergy Verified 01/20/20 07:10 Home Meds: Home Meds Hydrocodone/Acetaminophen [[place] 10-325 Tablet] 1 each PO Q8HR 4 Days #12 tablet 01/20/20 [Rx] Past Medical History - Past Health History Medical/Surgical History: Denies Medical/Surgical History HEENT History: Reports: Other (See Below) Other HEENT History: uses reading glasses Cardiovascular History: Reports: Hypertension Respiratory History: Reports: Sleep Apnea Other Respiratory History: uses CPAP Gastrointestinal History: Reports: GERD Other Gastrointestinal History: occasional heartburn Genitourinary History: Reports: Renal Calculus Other Genitourinary History: several kidney stones Musculoskeletal History: Reports: Arthritis Neurological History: Reports: None Psychiatric History: Reports: Anxiety, Depression Endocrine/Metabolic History: Reports: Obesity/BMI 30+ Hematologic History: Reports: None Immunologic History: Reports: None Oncologic (Cancer) History: Reports: None Dermatologic History: Reports: Psoriasis - Infectious Disease History Infectious Disease History: Reports: Chicken Pox - Past Surgical History Head Surgeries/Procedures: Reports: None GI Surgical History: Reports: Cholecystectomy, Hernia, Abdominal Other GI Surgeries/Procedures: hx of Umbilical hernia repair Male Surgical History: Reports: Lithotripsy (ESWL) Other Male Surgeries/Procedures: currently has a left kidney stone Social & Family History - Family History Family Medical History: Noncontributory Cardiac: Reports: Hypertension Endocrine/Metabolic: Reports: Diabetes, Type I, Diabetes, type II - Tobacco Use Smoking Status *Q: Never Smoker Second Hand Smoke Exposure: No - Caffeine Use Caffeine Use: Reports: Coffee - Recreational Drug Use Recreational Drug Use: No ED ROS GENERAL - Review of Systems Review Of Systems: See Below Free Text/Narrative/Comment: General: No fever. Skin: No rash. Eyes: No vision problems. ENT: No sore throat. Neck: No neck stiffness. Respiratory: No shortness of breath. Cardiac: No chest pain. Gastrointestinal: Per HPI Urinary: No dysuria. Musculoskeletal: No myalgias/arthralgias. Neurologic: No headache. ED EXAM, GI/ABD - Physical Exam Exam: See Below Text/Narrative:: General Appearance: No acute distress, appears comfortable Skin: No rash HEENT: Normocephalic/atraumatic, sclera anicteric, mucous membranes moist Neck: Normal range of motion Chest and Lungs: Bilateral breath sounds, clear to auscultation Cardiovascular: Regular rate and rhythm, no murmur Abdomen: Vague right lower quadrant tenderness. However patient's morbid obesity significantly limits exam. There is no clearly palpable hernia Back: Normal Musculoskeletal: No edema or tenderness Neurologic: Awake, alert, no obvious deficits, moving all extremities Psychiatric: Appropriate, cooperative Course - Vital Signs Last Recorded V/S: Last Vital Signs Temp 96.7 F L 01/20/20 10:06 Pulse 91 01/20/20 10:06 Resp 15 01/20/20 10:06 BP 156/99 H 01/20/20 10:06 Pulse Ox 93 L 01/20/20 10:06 - Orders/Labs/Meds Labs: Laboratory Tests 01/20/20 01/20/20 01/20/20 Range/Units 07:50 07:50 07:50 WBC 11.86 H (4.0-11.0) K/uL RBC 4.94 (4.50-5.90) M/uL Hgb 15.1 (13.0-17.0) g/dL Hct 43.7 (38.0-50.0) % MCV 88.5 (80.0-98.0) fL MCH 30.6 (27.0-32.0) pg MCHC 34.6 (31.0-37.0) g/dL RDW Std Deviation 43.7 (28.0-62.0) fl RDW Coeff of Loren 13 (11.0-15.0) % Plt Count 305 (150-400) K/uL MPV 9.30 (7.40-12.00) fL Neut % (Auto) 68.0 (48.0-80.0) % Lymph % (Auto) 20.7 (16.0-40.0) % Fann[place] % (Auto) 7.8 (0.0-15.0) % Eos % (Auto) 3.1 (0.0-7.0) % Baso % (Auto) 0.4 (0.0-1.5) % Neut # (Auto) 8.1 H (1.4-5.7) K/uL Lymph # (Auto) 2.5 H (0.6-2.4) K/uL Fannin # (Auto) 0.9 H (0.0-0.8) K/uL Eos # (Auto) 0.4 (0.0-0.7) K/uL Baso # (Auto) 0.1 (0.0-0.1) K/uL Nucleated RBC % 0.0 /100WBC Nucleated RBCs # 0 K/uL Lactate 1.5 (0.20-2.00) mmol/L Sodium 140 (136-148) mmol/L Potassium 3.7 (3.5-5.1) mmol/L Chloride 106 (98-107) mmol/L Carbon Dioxide 22.3 (21.0-32.0) mmol/L BUN 25 H (7.0-18.0) mg/dL Creatinine 1.0 (0.8-1.3) mg/dL Est Cr Clr Drug Dosing 93.28 mL/min Estimated GFR (MDRD) > 60.0 ml/min Glucose 124 H (74-106) mg/dL Calcium 8.4 L (8.5-10.1) mg/dL Meds: Medications Discontinued Medications Generic Name Dose Route Start Last Admin Trade Name Freq PRN Reason Stop Dose Admin Iopamidol 100 ml 01/20/20 09:20 01/20/20 09:23 Isovue-370 (76%) IVPUSH 01/20/20 09:21 100 ml ONETIME STA Administration Morphine Sulfate 6 mg 01/20/20 07:31 01/20/20 07:58 Morphine IVPUSH 01/20/20 07:32 6 mg ONETIME ONE Administration Ondansetron HCl 4 mg 01/20/20 07:31 01/20/20 07:58 Zofran IVPUSH 01/20/20 07:32 4 mg ONETIME ONE Administration Departure - Departure Time of Disposition: 09:57 Disposition: Home, Self-Care 01 Condition: Good Clinical Impression: Ventral hernia - Discharge Information *PRESCRIPTION DRUG MONITORING PROGRAM REVIEWED*: Not Applicable *COPY OF PRESCRIPTION DRUG MONITORING REPORT IN PATIENT NAKITA: Not Applicable Prescriptions: Hydrocodone/Acetaminophen [[place] 10-325 Tablet] 1 each PO Q8HR 4 Days #12 tablet Instructions: Hernia, Adult Referrals: Juan Antonio Mccall MD [Primary Care Provider] - Forms: ED Department Discharge Additional Instructions: As we discussed I recommend starting to take some MiraLAX as instructed on the bottle to help make sure your stools are soft. Please save your bowel prep for the. Prior to your surgery and take the entire preparation as instructed on the prescription. You can take the [place] as you need to for breakthrough pain please do not lift anything heavier than a jug of milk and please be mindful of your abdomen and try not to tensing her abdominal muscles. When you are going from sitting or standing or any other motions similar to that please brace her abdomen with your hand. The following information is given to patients seen in the emergency department who are being discharged to home. This information is to outline your options for follow-up care. We provide all patients seen in our emergency department with a follow-up referral. The need for follow-up, as well as the timing and circumstances, are variable depending upon the specifics of your emergency department visit. If you don't have a primary care physician on staff, we will provide you with a referral. We always advise you to contact your personal physician following an emergency department visit to inform them of the circumstance of the visit and for follow-up with them and/or the need for any referrals to a consulting specialist. The emergency department will also refer you to a specialist when appropriate. This referral assures that you have the opportunity for follow-up care with a specialist. All of these measure are taken in an effort to provide you with optimal care, which includes your follow-up. Under all circumstances we always encourage you to contact your private physician who remains a resource for coordinating your care. When calling for follow-up care, please make the office aware that this follow-up is from your recent emergency room visit. If for any reason you are refused follow-up, please contact the [facility] Emergency Department at and asked to speak to the emergency department charge nurse. Sepsis Event Note - Evaluation Sepsis Screening Result: No Definite Risk - Focused Exam Vital Signs: Vital Signs Temp Pulse Resp BP Pulse Ox 01/20/20 10:06 96.7 F L 91 15 156/99 H 93 L 01/20/20 08:01 82 16 166/90 H 95 01/20/20 07:11 97.3 F 110 H 15 192/109 H 95 Date Exam was Performed: 01/20/20 Time Exam was Performed: 15:11 - Assessment/Plan Assessment:: 49-year-old male presenting with signs and symptoms concerning for ongoing cardiac pain versus hernia incarceration. Morphine and Zofran ordered for symptoms CBC, BMP, CT scan to reassess. Renal colic is a consideration appendicitis consideration these are felt less likely but CT will elucidate this as well. Patient's labs are unremarkable patient CT scan is stable without sign of incarceration or bowel obstruction. Patient symptoms are much improved at this time he feels like he is at his baseline. I recommended adding MiraLAX was sent as short [place] prescription as well. We discussed not lifting anything heavier than a jug of milk and being mindful of his abdomen until he presents for his surgery in a couple days.
[2020-01-20 08:30] LABS: BLOOD UREA NITROGEN,BUN 25 mg/dL (7.0-18.0); CARBON DIOXIDE,CO2 22.3 mmol/L (21.0-32.0); CHLORIDE,CL 106 mmol/L (98-107); GLUCOSE RANDOM 124 mg/dL (74-106); POTASSIUM,K 3.7 mmol/L (3.5-5.1); SODIUM,NA 140 mmol/L (136-148)
[2020-01-20] MEDS ORDERED: Iopamidol 755 Mg/ML 100 ML Bottle IVPUSH STA (09:20)
--- NOTE | 2020-01-20 09:46 | CT ---
CT abdomen and pelvis Technique: Multiple axial sections were obtained from above the dome of the diaphragm inferiorly through the pubic symphysis. Intravenous and oral contrast not utilized. Comparison: Prior CT abdomen and pelvis exam of 01/04/20. Hernia is again identified within the anterior abdominal wall to the right of the umbilicus. This contains loops of nondilated small bowel which show no incarceration. No additional abdominal wall hernia is identified. Visualized lung bases show nothing acute. Liver shows a small low density lesion inferiorly having Hounsfield unit measurements of a small cyst measuring 6 mm. No additional abnormality is seen within the liver. Spleen appears 6 within normal limits. Adrenal glands show no nodule. Pancreas is within normal limits. Surgical clips are seen from prior cholecystectomy. Kidneys show symmetric contrast enhancement. 2 nonobstructing calculi are seen within the left kidney. Aorta shows no aneurysm. No retroperitoneal adenopathy or mesenteric abnormalities are seen. No pelvic mass or adenopathy is seen. No free fluid or inflammatory change is seen. Appendix is seen and is normal in size. Bone window settings were reviewed which show slight degenerative change scattered within the spine. Impression: 1. Anterior abdominal wall hernia containing small bowel loops which occurs to the right of the umbilicus region. This shows no evidence of incarceration and is similar to prior study. 2. Other findings believed to be nonacute and incidental as noted above. Diagnostic code #3 This report was dictated in MDT
[2020-01-20 10:07] VITALS: BP 156/99; PULSE 91
== END 2020-01-20 10:08 | disposition home or self-care (01) ==
LOC: MW.ED 05:57
DX: K43.9 Ventral hernia without obstruction or gangrene (principal); I10 Essential (primary) hypertension; M19.90 Unspecified osteoarthritis, unspecified site; E66.01 Morbid (severe) obesity due to excess calories; Z68.43 Body mass index [BMI] 50.0-59.9, adult; Z90.49 Acquired absence of other specified parts of digestive tract
CPT/HCPCS: 74177; 80048; 83605; 85025; 96374; 96375; 99284; J2270; J2405; Q9967; 99283

== ENCOUNTER 2020-10-25 16:34 | Emergency (ER) | payer OTHER ==
[2020-10-25] MEDS ORDERED: Sodium Chloride 0.9% 10 ML Syringe FLUSH PRN (16:53)
[2020-10-25] MEDS ORDERED: Sodium Chloride 0.9% 2.5 ML Syringe FLUSH PRN (16:53)
--- NOTE | 2020-10-25 16:53 | EDM.PDOC ---
ED HPI GENERAL MEDICAL PROBLEM - General Chief Complaint: Back Pain or Injury Stated Complaint: LEFT ABDOMINAL PAIN Time Seen by Provider: 10/25/20 16:43 Source of Information: Reports: Patient History Limitations: Reports: No Limitations - History of Present Illness INITIAL COMMENTS - FREE TEXT/NARRATIVE: 50-year-old obese male with history of kidney stones presents with left flank pain today. Pain is severe, rated 10/10, described as sharp, waxes and wanes, nonradiating, no known alleviating or exacerbating factors. His PCP started him on ciprofloxacin for UTI. He has taken 2 days and has 5 more days of ciprofloxacin. Associated symptoms include urgency, hematuria, nausea. Denies fever, chills, vomiting, diarrhea. ROS: A 10-point review of systems, other than pertinent positives and negatives as stated per HPI, is otherwise negative Past medical history: No additional pertinent history Past Surgical history: No additional pertinent history Social history: No additional pertinent history Family history: No additional pertinent history PHYSICAL EXAM General: AOx4, GCS = 15, BMI = 58, moderate distress Skin, clammy HEENT: dry mucous membrane Neck: supple, no meningismus, no Kernig or Brudzinski Cardiac: S1S2 RRR Respiratory: CTAB, no crackles or rales, no wheezing Abdomen: Soft, left lateral flank tender to palpation, no rebound or guarding, nondistended, no pulsatile mass. Back: nontender Musculoskeletal: NVI distally, no deformity Neuro: No focal deficits Left Middle Back Pain Score (Numeric/FACES): 9 - Related Data Allergies Allergy/AdvReac Type Severity Reaction Status Date / Time No Known Allergies Allergy Verified 10/25/20 16:40 Home Meds: Home Meds Celecoxib 200 mg PO DAILY 10/25/20 [History] Chlorthalidone 25 mg PO DAILY 10/25/20 [History] Ciprofloxacin HCl [Cipro] 500 mg PO DAILY 10/25/20 [History] DULoxetine [Cymbalta] 60 mg PO DAILY 10/25/20 [History] Losartan [Cozaar] 100 mg PO DAILY 10/25/20 [History] amLODIPine [Norvasc] 5 mg PO DAILY 10/25/20 [History] predniSONE [Prednisone] 10 mg PO DAILY 10/25/20 [History] Past Medical History - Past Health History Medical/Surgical History: Denies Medical/Surgical History HEENT History: Reports: Other (See Below) Other HEENT History: uses reading glasses Cardiovascular History: Reports: Hypertension Respiratory History: Reports: Sleep Apnea Other Respiratory History: uses CPAP Gastrointestinal History: Reports: GERD Other Gastrointestinal History: occasional heartburn Genitourinary History: Reports: Renal Calculus Other Genitourinary History: several kidney stones Musculoskeletal History: Reports: Arthritis Neurological History: Reports: None Psychiatric History: Reports: Anxiety, Depression Endocrine/Metabolic History: Reports: Obesity/BMI 30+ Hematologic History: Reports: None Immunologic History: Reports: None Oncologic (Cancer) History: Reports: None Dermatologic History: Reports: Psoriasis - Infectious Disease History Infectious Disease History: Reports: Chicken Pox - Past Surgical History Head Surgeries/Procedures: Reports: None GI Surgical History: Reports: Cholecystectomy, Hernia, Abdominal Other GI Surgeries/Procedures: hx of Umbilical hernia repair Male Surgical History: Reports: Lithotripsy (ESWL) Other Male Surgeries/Procedures: currently has a left kidney stone Social & Family History - Family History Family Medical History: No Pertinent Family History Cardiac: Reports: Hypertension Endocrine/Metabolic: Reports: Diabetes, Type I, Diabetes, type II - Caffeine Use Caffeine Use: Reports: Coffee ED ROS GENERAL - Review of Systems Review Of Systems: See Below (see dictation) ED EXAM, GENERAL - Physical Exam Exam: See Below (see dictation) #1 Interpretation EKG Interpretation Comments: Heart rate = 90 bpm, normal sinus rhythm, normal QRS interval, no STEMI. EKG and rhythm strip interpreted by me at 1703 Course - Vital Signs Last Recorded V/S: Last Vital Signs Temp 99.1 F 10/25/20 16:45 Pulse 89 10/25/20 20:04 Resp 18 10/25/20 20:04 BP 119/50 L 10/25/20 20:04 Pulse Ox 94 L 10/25/20 20:04 - Orders/Labs/Meds Orders: Active Orders 24 hr Category Date Time Status Cardiac Monitoring [RC] . DIRECTED Care 10/25/20 16:53 Active EKG Documentation Completion [RC] STAT Care 10/25/20 16:54 Active CULTURE URINE [RM] Stat Lab 10/25/20 19:29 Received Sodium Chloride 0.9% [Saline Flush] Med 10/25/20 16:53 Active 10 ml FLUSH ASDIRECTED PRN Sodium Chloride 0.9% [Saline Flush] Med 10/25/20 16:53 Active 2.5 ml FLUSH ASDIRECTED PRN cefTRIAXone [Rocephin in Dextrose,Iso-Osm 1 GM/50 ML] 1 Med 10/25/20 20:33 Ordered gm Premix Bag 1 bag IV ONETIME Saline Lock Insert [OM.PC] Stat Oth 10/25/20 16:53 Ordered Medication Orders Sodium Chloride (Saline Flush) 10 ml FLUSH ASDIRECTED PRN PRN Reason: Keep Vein Open Last Admin: 10/25/20 18:22 Dose: 10 ml Documented by: MITZI Sodium Chloride (Saline Flush) 2.5 ml FLUSH ASDIRECTED PRN PRN Reason: Keep Vein Open Last Admin: 10/25/20 18:22 Dose: 2.5 ml Documented by: MITZI Labs: Laboratory Tests 10/25/20 10/25/20 10/25/20 Range/Units 17:15 17:15 19:29 WBC 13.16 H (4.0-11.0) K/uL RBC 4.83 (4.50-5.90) M/uL Hgb 14.6 (13.0-17.0) g/dL Hct 44.1 (38.0-50.0) % MCV 91.3 (80.0-98.0) fL MCH 30.2 (27.0-32.0) pg MCHC 33.1 (31.0-37.0) g/dL RDW Std Deviation 44.4 (28.0-62.0) fl RDW Coeff of Loren 14 (11.0-15.0) % Plt Count 297 (150-400) K/uL MPV 9.30 (7.40-12.00) fL Neut % (Auto) 64.6 (48.0-80.0) % Lymph % (Auto) 22.6 (16.0-40.0) % [place] % (Auto) 10.1 (0.0-15.0) % Eos % (Auto) 2.3 (0.0-7.0) % Baso % (Auto) 0.4 (0.0-1.5) % Neut # (Auto) 8.5 H (1.4-5.7) K/uL Lymph # (Auto) 3.0 H (0.6-2.4) K/uL [place] # (Auto) 1.3 H (0.0-0.8) K/uL Eos # (Auto) 0.3 (0.0-0.7) K/uL Baso # (Auto) 0.1 (0.0-0.1) K/uL Nucleated RBC % 0.0 /100WBC Nucleated RBCs # 0 K/uL Sodium 143 (136-148) mmol/L Potassium 3.6 (3.5-5.1) mmol/L Chloride 102 (98-107) mmol/L Carbon Dioxide 30.8 (21.0-32.0) mmol/L BUN 20 H (7.0-18.0) mg/dL Creatinine 1.3 (0.8-1.3) mg/dL Est Cr Clr Drug Dosing 70.97 mL/min Estimated GFR (MDRD) 58.7 ml/min Glucose 138 H (74-106) mg/dL Calcium 8.5 (8.5-10.1) mg/dL Total Bilirubin 0.3 (0.2-1.0) mg/dL AST 11 L (15-37) IU/L ALT 35 (14-63) IU/L Alkaline Phosphatase 94 (46-116) U/L Troponin I < 0.050 (0.000-0.056) ng/mL Total Protein 7.6 (6.4-8.2) g/dL Albumin 3.8 (3.4-5.0) g/dL Globulin 3.8 (2.6-4.0) g/dL Albumin/Globulin Ratio 1.0 (0.9-1.6) Lipase 62 L (73-393) U/L Urine Color DARK YELLOW Urine Appearance SLT CLOUDY Urine pH 5.5 (5.0-8.0) Ur Specific Leroy >= 1.030 (1.001-1.035) Urine Protein TRACE H (NEGATIVE) mg/dL Urine Glucose (UA) NEGATIVE (NEGATIVE) mg/dL Urine Ketones TRACE H (NEGATIVE) mg/dL Urine Occult Blood LARGE H (NEGATIVE) Urine Nitrite NEGATIVE (NEGATIVE) Urine Bilirubin SMALL H (NEGATIVE) Urine Ictotest NEGATIVE Urine Urobilinogen 0.2 (<2.0) EU/dL Ur Leukocyte Esterase TRACE H (NEGATIVE) Urine RBC TOO NUMEROUS TO CT (0-2/HPF) Urine WBC 3-6 (0-5/HPF) Ur Epithelial Cells FEW (NONE-FEW) Urine Bacteria FEW (NEGATIVE) Meds: Medications Generic Name Dose Route Start Last Admin Trade Name Freq PRN Reason Stop Dose Admin Sodium Chloride 10 ml 10/25/20 16:53 10/25/20 18:22 Saline Flush FLUSH 10 ml ASDIRECTED PRN Administration Keep Vein Open Sodium Chloride 2.5 ml 10/25/20 16:53 10/25/20 18:22 Saline Flush FLUSH 2.5 ml ASDIRECTED PRN Administration Keep Vein Open Discontinued Medications Generic Name Dose Route Start Last Admin Trade Name Freq PRN Reason Stop Dose Admin Hydromorphone HCl 1 mg 10/25/20 19:46 10/25/20 20:02 Dilaudid IVPUSH 10/25/20 19:47 1 mg ONETIME ONE Administration Sodium Chloride 1,000 mls @ 999 mls/hr 10/25/20 16:54 10/25/20 17:15 Normal Saline IV 10/25/20 17:54 999 mls/hr .Bolus ONE Administration Ketorolac Tromethamine 30 mg 10/25/20 16:54 10/25/20 17:18 Toradol IVPUSH 10/25/20 16:55 30 mg ONETIME ONE Administration Morphine Sulfate 4 mg 10/25/20 16:54 10/25/20 17:21 Morphine IVPUSH 10/25/20 16:55 4 mg ONETIME ONE Administration Ondansetron HCl 4 mg 10/25/20 16:54 10/25/20 17:17 Zofran IVPUSH 10/25/20 16:55 4 mg ONETIME ONE Administration - Re-Assessments/Exams Free Text/Narrative Re-Assessment/Exam: 10/25/20 20:34 after IV fluids, IV pain medication and IV Rocephin in the ER, the patient improved and is currently stable for discharge. I performed a repeat exam and did not appreciate new abnormal findings. Patient states his pain is resolved. He exhibits normal vital signs and has a normal gait on road test. I advised the patient to return to the ER for reevaluation if symptoms worsened, including fever, worsening pain, or any other worrisome symptoms. I instructed the patient to follow up with their PCP Dr. Manzo within 2-3 days. MEDICAL DECISION MAKING: I reviewed the patients past medical records, lab and radiographic findings. I discussed the case with the patient. My differential diagnosis included: UTI, pyelonephritis, ureterolithiasis, kidney stone. CT demonstrated kidney stones but no ureteral lithiasis, UA demonstrated findings suggestive of recently passed stone. He was given IV Rocephin in the ER for UTI, instructed to continue taking his ciprofloxacin for continuing treatment of his current UTI, he has 5 more days worth of ciprofloxacin. Departure - Departure Time of Disposition: 20:35 Disposition: Home, Self-Care 01 Condition: Good Clinical Impression: UTI (urinary tract infection), Kidney stone - Discharge Information *PRESCRIPTION DRUG MONITORING PROGRAM REVIEWED*: Not Applicable *COPY OF PRESCRIPTION DRUG MONITORING REPORT IN PATIENT NAKITA: Not Applicable Instructions: Kidney Stones, [id number], Urinary Tract Infection, Adult Referrals: Nohemy Manzo, ROD [Nurse Practitioner] - 3 Days Forms: ED Department Discharge Additional Instructions: The need for follow-up, as well as the timing and circumstances, are variable depending upon the specifics of your emergency department visit. If you don't have a primary care physician on staff, we will provide you with a referral. We always advise you to contact your personal physician following an emergency department visit to inform them of the circumstance of the visit and for follow-up with them and/or the need for any referrals to a consulting specialist. The emergency department will also refer you to a specialist when appropriate. This referral assures that you have the opportunity for follow-up care with a specialist. All of these measure are taken in an effort to provide you with optimal care, which includes your follow-up. Under all circumstances we always encourage you to contact your private physician who remains a resource for coordinating your care. When calling for follow-up care, please make the office aware that this follow-up is from your recent emergency room visit. If for any reason you are refused follow-up, please contact the [facility] Emergency Department at and asked to speak to the emergency department charge nurse. If you do not have a primary care doctor, please follow up with the clinics below within 3-5 days. [facility] [address] [place] [id number] [facility] [address] [place] [id number] Sepsis Event Note (ED) - Evaluation Sepsis Screening Result: No Definite Risk - Focused Exam Vital Signs: Vital Signs Temp Pulse Resp BP Pulse Ox 10/25/20 20:04 89 18 119/50 L 94 L 10/25/20 16:45 99.1 F 99 20 157/75 H 96 - My Orders Last 24 Hours: My Active Orders 10/25/20 16:53 Cardiac Monitoring [RC] . DIRECTED Sodium Chloride 0.9% [Saline Flush] 10 ml FLUSH ASDIRECTED PRN Sodium Chloride 0.9% [Saline Flush] 2.5 ml FLUSH ASDIRECTED PRN Saline Lock Insert [OM.PC] Stat 10/25/20 16:54 EKG Documentation Completion [RC] STAT 10/25/20 19:29 CULTURE URINE [RM] Stat 10/25/20 20:33 cefTRIAXone [Rocephin in Dextrose,Iso-Osm 1 GM/50 ML] 1 gm Premix Bag 1 bag IV ONETIME - Assessment/Plan Last 24 Hours: My Active Orders 10/25/20 16:53 Cardiac Monitoring [RC] . DIRECTED Sodium Chloride 0.9% [Saline Flush] 10 ml FLUSH ASDIRECTED PRN Sodium Chloride 0.9% [Saline Flush] 2.5 ml FLUSH ASDIRECTED PRN Saline Lock Insert [OM.PC] Stat 10/25/20 16:54 EKG Documentation Completion [RC] STAT 10/25/20 19:29 CULTURE URINE [RM] Stat 10/25/20 20:33 cefTRIAXone [Rocephin in Dextrose,Iso-Osm 1 GM/50 ML] 1 gm Premix Bag 1 bag IV ONETIME
[2020-10-25] MEDS ORDERED: Ketorolac 30 MG/ML SDV IVPUSH ONE (16:54)
[2020-10-25] MEDS ORDERED: Ondansetron 4 MG/2 ML SDV IVPUSH ONE (16:54)
[2020-10-25] MEDS ORDERED: Morphine 4 MG/ML Syringe IVPUSH ONE (16:54)
[2020-10-25] MEDS ORDERED: Sodium Chloride 0.9% 1,000 ML IV ONE (16:54)
[2020-10-25 17:57] LABS: BLOOD UREA NITROGEN,BUN 20 mg/dL (7.0-18.0); CARBON DIOXIDE,CO2 30.8 mmol/L (21.0-32.0); CHLORIDE,CL 102 mmol/L (98-107); GLUCOSE RANDOM 138 mg/dL (74-106); LIPASE 62 U/L (73-393); POTASSIUM,K 3.6 mmol/L (3.5-5.1); SODIUM,NA 143 mmol/L (136-148)
--- NOTE | 2020-10-25 18:18 | CT ---
Indication: Left flank pain. Technique: Multiple contiguous axial images were obtained from the lung bases is symphysis pubis without intravenous contrast enhancement. Please note that all CT scans at this facility use dose modulation, iterative reconstruction, and/or weight-based dosing when appropriate to reduce radiation dose to as low as reasonably achievable. Comparison: March 14, 2020 Findings: The lung bases are clear. No infiltrate, pleural effusion or identified. Heart is normal in size. No pericardial effusions identified. Diffuse fatty infiltration of the liver is identified. No intrahepatic biliary ductal dilatation is identified. Postsurgical changes of cholecystectomy are identified. Two nonobstructing renal calculi are identified on the left. One is in the interpolar region measuring 9 millimeters in size. The other is within the renal pelvis measuring approximately 9 millimeters in size as well. No hydronephrosis is identified. No renal calculi are identified on the right. No right-sided hydronephrosis is identified. In the pelvis, the prostate gland is normal. The bladder is normal. The small and large bowel are normal in caliber. A moderate amount of stool is identified within the colon. No significant colonic diverticula are identified. No free air or free fluid is identified within the abdomen or pelvis. The aorta is normal in caliber. Degenerative changes of the spine are seen Impression: Diffuse fatty infiltration of the liver. Nonobstructive left renal calculi. No hydronephrosis or hydroureter is identified. Please note that all CT scans at this facility use dose modulation, iterative reconstruction, and/or weight-based dosing when appropriate to reduce radiation dose to as low as reasonably achievable. Dictated by Lennie Thorpe MD @ Oct 25 2020 6:12PM Signed by Dr. Lennie Thorpe @ Oct 25 2020 6:17PM
[2020-10-25] MEDS ORDERED: HYDROmorphone 1 MG/ML Syringe IVPUSH ONE (19:46)
[2020-10-25] MEDS ORDERED: cefTRIAXone 1 GM in Premix Bag 1 BAG IV ONE (20:33)
[2020-10-25 21:38] VITALS: BP 142/82; PULSE 86
== END 2020-10-25 21:59 | disposition home or self-care (01) ==
LOC: MW.ED 16:34
DX: N39.0 Urinary tract infection, site not specified (principal); N20.0 Calculus of kidney; I10 Essential (primary) hypertension; E66.9 Obesity, unspecified; Z68.43 Body mass index [BMI] 50.0-59.9, adult; Z79.899 Other long term (current) drug therapy
CPT/HCPCS: 36415; 74176; 80053; 81001; 83690; 84484; 85025; 87086; 93005; 96365; 96375; 99284; J0696; J1170; J1885; J2270; J2405; J7030; 93010; 99283

== ENCOUNTER 2022-03-02 07:12 | Emergency (ER) | payer OTHER ==
[2022-03-02] MEDS ORDERED: Sodium Chloride 0.9% 1,000 ML IV ONE ×3 (07:20→10:01)
[2022-03-02] MEDS ORDERED: Ondansetron 4 MG/2 ML SDV IVPUSH ONE (07:20)
[2022-03-02] MEDS ORDERED: HYDROmorphone 1 MG/ML Syringe IVPUSH ONE ×4 (07:20→11:12)
[2022-03-02 08:09] LABS: BLOOD UREA NITROGEN,BUN 21 mg/dL (7.0-18.0); CARBON DIOXIDE,CO2 18.2 mmol/L (21.0-32.0); CHLORIDE,CL 102 mmol/L (98-107); GLUCOSE RANDOM 111 mg/dL (74-106); LIPASE 123 U/L (73-393); POTASSIUM,K 3.5 mmol/L (3.5-5.1); SODIUM,NA 140 mmol/L (136-148)
[2022-03-02 08:12] LABS: ESTIMATED GFR > 60.0 ml/min
[2022-03-02] MEDS ORDERED: Tamsulosin 0.4 MG Cap.ER PO ONE (08:42)
[2022-03-02] MEDS ORDERED: Piperacillin/Tazobactam 3.375 GM in Sodium Chloride 0.9% 50 ML IV ONE (09:39)
[2022-03-02] MEDS ORDERED: Diatrizoate Meglumine/Diatrizoate Sodium 37% 30 ML Bottle PO ONE (10:46)
[2022-03-02] MEDS ORDERED: Iopamidol 755 MG/ML 500 ML Multipack Bottle IVPUSH STA (10:46)
[2022-03-02 12:44] VITALS: BP 102/68; PULSE 59
== END 2022-03-02 12:50 | disposition home or self-care (01) ==
LOC: MW.ED 07:12
DX: R10.9 Unspecified abdominal pain (principal); I10 Essential (primary) hypertension; F41.9 Anxiety disorder, unspecified; F32.A Depression, unspecified; E66.9 Obesity, unspecified; Z68.38 Body mass index [BMI] 38.0-38.9, adult
CPT/HCPCS: 36415; 71045; 74177; 80053; 81003; 83605; 83690; 83735; 84484; 85025; 86140; 87040; 93005; 96361; 96365; 96375; 96376; 99284; A9270; J1170; J2405; J2543; J7030; Q9963; Q9967

== ENCOUNTER 2022-03-03 08:05 | Observation (INO) | payer OTHER ==
[2022-03-03] MEDS ORDERED: Ondansetron 4 MG/2 ML SDV IVPUSH ONE (08:17)
[2022-03-03] MEDS ORDERED: HYDROmorphone 1 MG/ML Syringe IVPUSH ONE ×3 (08:17→10:49)
[2022-03-03] MEDS ORDERED: Sodium Chloride 0.9% 1,000 ML IV ONE ×3 (08:17→09:10)
[2022-03-03] MEDS ORDERED: Tamsulosin 0.4 MG Cap.ER PO ONE (08:40)
[2022-03-03 09:01] LABS: BLOOD UREA NITROGEN,BUN 12 mg/dL (7.0-18.0); CARBON DIOXIDE,CO2 22.9 mmol/L (21.0-32.0); CHLORIDE,CL 102 mmol/L (98-107); GLUCOSE RANDOM 107 mg/dL (74-106); LIPASE 91 U/L (73-393); POTASSIUM,K 3.5 mmol/L (3.5-5.1); SODIUM,NA 141 mmol/L (136-148)
[2022-03-03 09:05] LABS: ESTIMATED GFR 92 mL/min (>60)
[2022-03-03] MEDS ORDERED: Sodium Chloride 0.9% 2.5 ML Syringe FLUSH PRN (11:58)
[2022-03-03] MEDS ORDERED: Sodium Chloride 0.9% 10 ML Syringe FLUSH PRN (11:58)
[2022-03-03] MEDS ORDERED: Pantoprazole 40 MG in Sodium Chloride 0.9% 10 ML IVPUSH SCH (12:00)
[2022-03-03] MEDS: HYDROmorphone 1 MG/ML Syringe IVPUSH PRN ×4 (12:48→22:49)
[2022-03-03] MEDS: Ondansetron 4 MG/2 ML SDV IVPUSH PRN ×3 (12:51→22:48)
[2022-03-03] MEDS: Docusate Sodium 100 MG Cap PO SCH (12:57)
[2022-03-03] MEDS: Magnesium Citrate Solution 296 ML Bottle PO ONE ×2 (12:57→16:31)
[2022-03-03] MEDS: Lactated Ringers 1,000 ML IV SCH ×2 (12:58→20:45)
[2022-03-03] MEDS: DULoxetine 60 MG Cap PO SCH (20:44)
[2022-03-04] MEDS: HYDROmorphone 1 MG/ML Syringe IVPUSH PRN ×6 (03:01→21:06)
[2022-03-04] MEDS: Ondansetron 4 MG/2 ML SDV IVPUSH PRN (03:02)
[2022-03-04] MEDS: Lactated Ringers 1,000 ML IV SCH ×3 (04:33→21:05)
[2022-03-04] MEDS ORDERED: LORazepam 2 MG/ML SDV ONE (06:07)
[2022-03-04] MEDS ORDERED: LORazepam 2 MG/ML SDV IVPUSH PRN (06:09)
[2022-03-04 06:55] LABS: POTASSIUM,K 3.4 mmol/L (3.5-5.1)
[2022-03-04] MEDS: Docusate Sodium 100 MG Cap PO SCH (08:08)
[2022-03-04] MEDS: DULoxetine 60 MG Cap PO SCH (08:09)
[2022-03-04] MEDS: Promethazine 25 MG/ML SDV IM PRN ×2 (08:23→21:06)
[2022-03-04] MEDS ORDERED: Bisacodyl 10 MG Supp RECTAL ONE (08:33)
[2022-03-04] MEDS: hydrOXYzine Pamoate 25 MG Cap PO PRN ×2 (11:55→17:56)
[2022-03-04] MEDS: Pantoprazole 40 MG in Sodium Chloride 0.9% 10 ML IVPUSH SCH ×2 (11:55→23:33)
[2022-03-05] MEDS: Lactated Ringers 1,000 ML IV SCH ×2 (07:54→12:30)
[2022-03-05] MEDS: hydrOXYzine Pamoate 25 MG Cap PO PRN (08:29)
[2022-03-05] MEDS: DULoxetine 60 MG Cap PO SCH (08:29)
[2022-03-05] MEDS: Docusate Sodium 100 MG Cap PO SCH (08:30)
[2022-03-05] MEDS ORDERED: oxyCODONE 5 MG Tab PO PRN (08:37)
[2022-03-05 08:57] LABS: CARBON DIOXIDE,CO2 24.3 mmol/L (21.0-32.0); POTASSIUM,K 3.4 mmol/L (3.5-5.1)
[2022-03-05 10:05] VITALS: BP 129/100; PULSE 93
[2022-03-05] MEDS: Pantoprazole 40 MG in Sodium Chloride 0.9% 10 ML IVPUSH SCH (12:29)
== END 2022-03-05 12:26 | disposition home or self-care (01) ==
LOC: MW.ED 08:05 → MW.MS 10:54
PROVIDERS: ADMIT Internal Medicine; ATTEND Internal Medicine
DX: K59.09 Other constipation (principal); R11.2 Nausea with vomiting, unspecified; R74.02 Elevation of levels of lactic acid dehydrogenase [LDH]; L40.50 Arthropathic psoriasis, unspecified; N20.0 Calculus of kidney; F12.90 Cannabis use, unspecified, uncomplicated; K21.9 Gastro-esophageal reflux disease without esophagitis; F41.9 Anxiety disorder, unspecified; F32.A Depression, unspecified; I10 Essential (primary) hypertension; E66.09 Other obesity due to excess calories; Z68.38 Body mass index [BMI] 38.0-38.9, adult; Z98.84 Bariatric surgery status; Z20.822 Contact with and (suspected) exposure to COVID-19; Z79.899 Other long term (current) drug therapy
CPT/HCPCS: 36415; 80048; 80053; 80305-QW; 80307; 81001; 82272; 83605; 83690; 83735; 84484; 85025; 85610; 85730; 86140; 93005; 96374; 96375; 96376; 99285-25; A9270-GY; C9113; J1170; J2060; J2405; J2550; J3490; J7030; J7120; U0002

== ENCOUNTER 2022-06-24 09:42 | Emergency (ER) | payer OTHER | END 2022-06-24 09:51 | disposition left against medical advice (07) | LOC: MW.ED 09:42 | DX: Z53.21 Procedure and treatment not carried out due to patient leaving prior to being seen by health care provider (principal) ==

== ENCOUNTER 2022-08-06 06:12 | Emergency (ER) | payer OTHER ==
[2022-08-06] MEDS ORDERED: diphenhydrAMINE 50 MG/ML SDV IVPUSH ONE (06:24)
[2022-08-06] MEDS ORDERED: Lactated Ringers 1,000 ML IV STA (06:24)
[2022-08-06] MEDS ORDERED: Haloperidol Lactate 5 MG/ML SDV IM ONE (06:24)
[2022-08-06 07:38] VITALS: BP 127/85; PULSE 70
[2022-08-06 07:48] LABS: CARBON DIOXIDE,CO2 22.8 mmol/L (21.0-32.0); POTASSIUM,K 3.4 mmol/L (3.5-5.1)
[2022-08-06] MEDS ORDERED: Lactated Ringers 1,000 ML IV ONE (08:32)
== END 2022-08-06 09:44 | disposition home or self-care (01) ==
LOC: MW.ED 06:12
DX: R11.2 Nausea with vomiting, unspecified (principal); I10 Essential (primary) hypertension; K21.9 Gastro-esophageal reflux disease without esophagitis; E66.9 Obesity, unspecified; Z68.34 Body mass index [BMI] 34.0-34.9, adult; Z79.899 Other long term (current) drug therapy
CPT/HCPCS: 36415; 80053; 83605; 85025; 85610; 87040; 87635; 99284; J1200; J1630; J7120; U0002

== ENCOUNTER 2023-02-26 02:31 | Emergency (ER) | payer OTHER ==
[2023-02-26] MEDS ORDERED: Sodium Chloride 0.9% 1,000 ML IV ONE ×2 (02:39→03:27)
[2023-02-26] MEDS ORDERED: Ketorolac 30 MG/ML SDV ONE (02:42)
[2023-02-26] MEDS ORDERED: Ondansetron 4 MG/2 ML SDV IVPUSH ONE (02:42)
[2023-02-26] MEDS ORDERED: Morphine 4 MG/ML Syringe IVPUSH ONE (02:43)
[2023-02-26] MEDS ORDERED: Ketorolac 30 MG/ML SDV IVPUSH ONE (02:44)
[2023-02-26 02:45] LABS: BASOPHILS ABSOLUTE AUTO 0.1 K/uL (0.0-0.1); BASOPHILS PERCENT AUTO 0.4 % (0.0-1.5); EOSINOPHILS ABSOLUTE AUTO 0.5 K/uL (0.0-0.7); EOSINOPHILS PERCENT AUTO 3.9 % (0.0-7.0); HEMATOCRIT 43.1 % (38.0-50.0); HEMOGLOBIN 15.1 g/dL (13.0-17.0); LYMPHOCYTES ABSOLUTE AUTO 3.8 K/uL (0.6-2.4); LYMPHOCYTES PERCENT AUTO 29.9 % (16.0-40.0); MEAN CORPUSCULAR HEMOGLOBIN 31.9 pg (27.0-32.0); MEAN CORPUSCULAR VOLUME 91.1 fL (80.0-98.0); MONOCYTES ABSOLUTE AUTO 0.9 K/uL (0.0-0.8); MONOCYTES PERCENT AUTO 7.1 % (0.0-15.0); NEUTROPHILS ABSOLUTE AUTO 7.5 K/uL (1.4-5.7); NEUTROPHILS PERCENT AUTO 58.7 % (48.0-80.0); NRBC ABSOLUTE 0 K/uL; PLATELET COUNT,PLT 372 K/uL (150-400); RED BLOOD CELL COUNT 4.73 M/uL (4.50-5.90); WHITE BLOOD CELL COUNT,WBC 12.76 K/uL (4.0-11.0)
[2023-02-26] MEDS ORDERED: HYDROmorphone 1 MG/ML Syringe IVPUSH ONE ×2 (03:03→03:46)
[2023-02-26 03:07] LABS: A/G RATIO 1.4 (0.9-1.6); ALBUMIN 4.6 g/dL (3.4-5.0); BILIRUBIN TOTAL 0.4 mg/dL (0.2-1.0); CALCIUM 8.2 mg/dL (8.5-10.1); CARBON DIOXIDE,CO2 28.1 mmol/L (21.0-32.0); CREATININE 0.9 mg/dL (0.8-1.3); EST CRCL DRUG DOSING (CG) 103.42 mL/min; POTASSIUM,K 3.8 mmol/L (3.5-5.1); PROTEIN TOTAL,TP 7.9 g/dL (6.4-8.2)
[2023-02-26 03:49] LABS: APPEARANCE,URINE CLEAR; BILIRUBIN,URINE NEGATIVE (NEGATIVE); COLOR,URINE YELLOW; GLUCOSE,URINE NEGATIVE (NEGATIVE); KETONES,URINE NEGATIVE (NEGATIVE); LEUKOCYTE ESTERASE,URINE NEGATIVE (NEGATIVE); NITRITE,URINE NEGATIVE (NEGATIVE); OCCULT BLOOD,URINE NEGATIVE (NEGATIVE); PH,URINE 5.5 (5.0-8.0); PROTEIN,URINE NEGATIVE (NEGATIVE); UROBILINOGEN,URINE 0.2 EU/dL (<2.0)
[2023-02-26 04:10] VITALS: BP 114/78; PULSE 64
== END 2023-02-26 04:11 | disposition home or self-care (01) ==
LOC: MW.ED 02:31
DX: R10.9 Unspecified abdominal pain (principal); I10 Essential (primary) hypertension; E66.9 Obesity, unspecified; K21.9 Gastro-esophageal reflux disease without esophagitis; Z79.899 Other long term (current) drug therapy; Z68.33 Body mass index [BMI] 33.0-33.9, adult
CPT/HCPCS: 36415; 74176; 80053; 81003; 83690; 85025; 96361; 96374; 96375; 96376; 99284; J1170; J1885; J2270; J2405; J7030

== ENCOUNTER 2023-02-26 17:13 | Emergency (ER) | payer OTHER ==
[2023-02-26 17:22] VITALS: BP 154/78; PULSE 71
[2023-02-26] MEDS ORDERED: Ondansetron 4 MG/2 ML SDV IVPUSH ONE (17:25)
[2023-02-26] MEDS ORDERED: Sodium Chloride 0.9% 1,000 ML IV ONE ×3 (17:25→19:11)
[2023-02-26] MEDS ORDERED: HYDROmorphone 1 MG/ML Syringe IVPUSH ONE ×2 (17:25→18:08)
[2023-02-26 17:33] LABS: BASOPHILS PERCENT AUTO 0.3 % (0.0-1.5); EOSINOPHILS ABSOLUTE AUTO 0.4 K/uL (0.0-0.7); EOSINOPHILS PERCENT AUTO 2.7 % (0.0-7.0); HEMATOCRIT 42.5 % (38.0-50.0); HEMOGLOBIN 14.6 g/dL (13.0-17.0); LYMPHOCYTES ABSOLUTE AUTO 2.7 K/uL (0.6-2.4); LYMPHOCYTES PERCENT AUTO 18.1 % (16.0-40.0); MEAN CORPUSCULAR HEMOGLOBIN 31.5 pg (27.0-32.0); MEAN CORPUSCULAR HGB CONC 34.4 g/dL (31.0-37.0); MEAN CORPUSCULAR VOLUME 91.8 fL (80.0-98.0); MONOCYTES PERCENT AUTO 6.7 % (0.0-15.0); NEUTROPHILS ABSOLUTE AUTO 10.7 K/uL (1.4-5.7); NEUTROPHILS PERCENT AUTO 72.2 % (48.0-80.0); NRBC ABSOLUTE 0 K/uL; PLATELET COUNT,PLT 305 K/uL (150-400); RED BLOOD CELL COUNT 4.63 M/uL (4.50-5.90); WHITE BLOOD CELL COUNT,WBC 14.84 K/uL (4.0-11.0)
[2023-02-26 17:54] LABS: A/G RATIO 1.5 (0.9-1.6); ALBUMIN 4.7 g/dL (3.4-5.0); BILIRUBIN TOTAL 0.6 mg/dL (0.2-1.0); CALCIUM 8.5 mg/dL (8.5-10.1); CARBON DIOXIDE,CO2 24.2 mmol/L (21.0-32.0); EST CRCL DRUG DOSING (CG) 90.24 mL/min; POTASSIUM,K 3.6 mmol/L (3.5-5.1); PROTEIN TOTAL,TP 7.8 g/dL (6.4-8.2)
== END 2023-02-26 19:29 | disposition left against medical advice (07) ==
LOC: MW.ED 17:13
DX: E87.20 Acidosis, unspecified (principal); R10.9 Unspecified abdominal pain; Z76.5 Malingerer [conscious simulation]; Z53.21 Procedure and treatment not carried out due to patient leaving prior to being seen by health care provider; Z79.899 Other long term (current) drug therapy
CPT/HCPCS: 36415; 74176; 80053; 83605; 85025; 96361; 96374; 96375; 96376; 99285; J1170; J2405; J7030

== ENCOUNTER 2023-02-26 20:48 | Observation (INO) | payer OTHER ==
[2023-02-26] MEDS ORDERED: Sodium Chloride 0.9% 1,000 ML IV ONE ×3 (21:19→21:20)
[2023-02-26] MEDS ORDERED: HYDROmorphone 1 MG/ML Syringe IVPUSH ONE (21:19)
[2023-02-26 21:26] LABS: BASOPHILS PERCENT AUTO 0.2 % (0.0-1.5); EOSINOPHILS ABSOLUTE AUTO 0.1 K/uL (0.0-0.7); EOSINOPHILS PERCENT AUTO 0.6 % (0.0-7.0); HEMATOCRIT 41.5 % (38.0-50.0); HEMOGLOBIN 14.8 g/dL (13.0-17.0); LYMPHOCYTES ABSOLUTE AUTO 2.1 K/uL (0.6-2.4); LYMPHOCYTES PERCENT AUTO 12.2 % (16.0-40.0); MEAN CORPUSCULAR HEMOGLOBIN 31.8 pg (27.0-32.0); MEAN CORPUSCULAR HGB CONC 35.7 g/dL (31.0-37.0); MEAN CORPUSCULAR VOLUME 89.2 fL (80.0-98.0); MONOCYTES PERCENT AUTO 5.8 % (0.0-15.0); NEUTROPHILS PERCENT AUTO 81.2 % (48.0-80.0); NRBC ABSOLUTE 0 K/uL; PLATELET COUNT,PLT 324 K/uL (150-400); RED BLOOD CELL COUNT 4.65 M/uL (4.50-5.90); WHITE BLOOD CELL COUNT,WBC 17.18 K/uL (4.0-11.0)
[2023-02-26] MEDS ORDERED: Ketorolac 30 MG/ML SDV IVPUSH ONE (21:53)
[2023-02-26] MEDS ORDERED: Iopamidol 755 MG/ML 500 ML Multipack Bottle IVPUSH ONE (22:07)
[2023-02-26 22:12] LABS: A/G RATIO 1.5 (0.9-1.6); ALANINE AMINOTRANSFERASE,ALT 19 IU/L (14-63); ALBUMIN 4.6 g/dL (3.4-5.0); ALKALINE PHOSPHATASE 76 U/L (46-116); ASPARTATE AMNIOTRANSFERASE,AST 14 IU/L (15-37); BILIRUBIN TOTAL 0.7 mg/dL (0.2-1.0); BLOOD UREA NITROGEN,BUN 18 mg/dL (7.0-18.0); CALCIUM 8.8 mg/dL (8.5-10.1); CARBON DIOXIDE,CO2 21.3 mmol/L (21.0-32.0); CHLORIDE,CL 104 mmol/L (98-107); EST CRCL DRUG DOSING (CG) 90.24 mL/min; GLUCOSE RANDOM 143 mg/dL (74-106); LIPASE 51 U/L (73-393); POTASSIUM,K 3.1 mmol/L (3.5-5.1); PROTEIN TOTAL,TP 7.6 g/dL (6.4-8.2); SODIUM,NA 144 mmol/L (136-148)
[2023-02-26 22:14] LABS: ESTIMATED GFR 91 mL/min (>60); ETHANOL BLOOD MEDICAL < 3.0 mg/dL
[2023-02-26 22:26] LABS: LACTIC ACID 2.7 mmol/L (0.4-2.0)
[2023-02-26] MEDS ORDERED: Ketorolac 30 MG/ML SDV IVPUSH PRN (22:34)
[2023-02-26] MEDS ORDERED: oxyCODONE 5 MG Tab PO PRN (22:34)
[2023-02-26] MEDS ORDERED: Ondansetron 4 MG/2 ML SDV IVPUSH PRN (22:34)
[2023-02-26] MEDS ORDERED: Ondansetron 4 MG Tab.DIS PO PRN (22:34)
[2023-02-26] MEDS ORDERED: Acetaminophen 325 MG Tab PO PRN (22:34)
[2023-02-26] MEDS ORDERED: Polyethylene Glycol 3350 Powder 17 GM Packet PO PRN (22:41)
[2023-02-26] MEDS ORDERED: hydrOXYzine Pamoate 25 MG Cap PO PRN (22:41)
[2023-02-26] MEDS: Pantoprazole 40 MG in Sodium Chloride 0.9% 10 ML IVPUSH SCH (23:00)
[2023-02-26 23:34] LABS: APPEARANCE,URINE CLEAR; BILIRUBIN,URINE NEGATIVE (NEGATIVE); COLOR,URINE YELLOW; GLUCOSE,URINE NEGATIVE (NEGATIVE); KETONES,URINE 15 mg/dL (NEGATIVE); LEUKOCYTE ESTERASE,URINE NEGATIVE (NEGATIVE); NITRITE,URINE NEGATIVE (NEGATIVE); OCCULT BLOOD,URINE TRACE-INTACT (NEGATIVE); PH,URINE 7.5 (5.0-8.0); PROTEIN,URINE NEGATIVE (NEGATIVE); UROBILINOGEN,URINE 0.2 EU/dL (<2.0)
[2023-02-26 23:44] LABS: AMPHETAMINES SCREEN, URINE NEGATIVE (CUTOFF=500); BARBITURATE SCREEN,URINE NEGATIVE (CUTOFF=200); BENZODIAZEPINES SCREEN,URINE NEGATIVE (CUTOFF=150); BUPRENORPHINE SCREEN,URINE NEGATIVE (CUTOFF=10); METHADONE SCREEN, URINE NEGATIVE (CUTOFF=200); METHAMPHETAMINES SCREEN, URINE NEGATIVE (CUTOFF=500); OXYCODONE SCREEN,URINE PRESUMPTIVE POSITIVE (CUT0FF=100); PCP SCREEN,URINE NEGATIVE (CUTOFF=25); PROPOXYPHENE SCREEN,URINE NEGATIVE (CUTOFF=300); THC SCREEN,URINE 20 NG/ML PRESUMPTIVE POSITIVE (CUTOFF=50)
[2023-02-26 23:46] LABS: BACTERIA,URINE FEW (NEGATIVE); EPITHELIAL CELLS,URINE RARE (NONE-FEW); RBC,URINE 0-2 (0-2/HPF); WBC,URINE 0-2 (0-5/HPF)
[2023-02-27] MEDS: NS + KCl 20mEq/L 1,000 ML IV SCH ×4 (01:23→21:38)
[2023-02-27] MEDS: HYDROmorphone 1 MG/ML Syringe IVPUSH PRN ×6 (01:23→19:37)
[2023-02-27] MEDS: Nicotine 21 MG/24 Hr Patch TRDERM SCH ×2 (02:14→08:48)
[2023-02-27] MEDS ORDERED: Ketorolac 30 MG/ML SDV IVPUSH PRN (04:00)
[2023-02-27 06:26] LABS: BASOPHILS PERCENT AUTO 0.1 % (0.0-1.5); EOSINOPHILS PERCENT AUTO 0.1 % (0.0-7.0); HEMATOCRIT 39.8 % (38.0-50.0); HEMOGLOBIN 13.6 g/dL (13.0-17.0); LYMPHOCYTES ABSOLUTE AUTO 1.2 K/uL (0.6-2.4); LYMPHOCYTES PERCENT AUTO 8.8 % (16.0-40.0); MEAN CORPUSCULAR HEMOGLOBIN 31.1 pg (27.0-32.0); MEAN CORPUSCULAR HGB CONC 34.2 g/dL (31.0-37.0); MEAN CORPUSCULAR VOLUME 91.1 fL (80.0-98.0); MONOCYTES ABSOLUTE AUTO 0.7 K/uL (0.0-0.8); MONOCYTES PERCENT AUTO 5.2 % (0.0-15.0); NEUTROPHILS ABSOLUTE AUTO 11.6 K/uL (1.4-5.7); NEUTROPHILS PERCENT AUTO 85.8 % (48.0-80.0); NRBC ABSOLUTE 0 K/uL; PLATELET COUNT,PLT 269 K/uL (150-400); RED BLOOD CELL COUNT 4.37 M/uL (4.50-5.90)
[2023-02-27 06:53] LABS: A/G RATIO 1.4 (0.9-1.6); ALBUMIN 4.1 g/dL (3.4-5.0); BILIRUBIN TOTAL 0.6 mg/dL (0.2-1.0); CARBON DIOXIDE,CO2 23.1 mmol/L (21.0-32.0); CREATININE 0.8 mg/dL (0.8-1.3); EST CRCL DRUG DOSING (CG) 112.8 mL/min; MAGNESIUM 1.6 mg/dL (1.8-2.4); PHOSPHORUS 3.4 mg/dL (2.6-4.7); POTASSIUM,K 3.6 mmol/L (3.5-5.1); PROTEIN TOTAL,TP 7.1 g/dL (6.4-8.2)
[2023-02-27] MEDS: Sennosides/Docusate Sodium 50-8.6 MG Tab PO SCH ×2 (08:46→21:38)
[2023-02-27] MEDS: Enoxaparin 40 MG/0.4 ML Syringe SUBCUT SCH (08:47)
[2023-02-27] MEDS: amLODIPine 5 MG Tab PO SCH (08:47)
[2023-02-27] MEDS: DULoxetine 60 MG Cap PO SCH (08:47)
[2023-02-27] MEDS ORDERED: Magnesium Sulfate/Water 2 GM in Premix Bag 1 BAG IV ONE (10:12)
[2023-02-27] MEDS ORDERED: Bisacodyl 10 MG Supp RECTAL ONE (10:24)
[2023-02-27] MEDS: Pantoprazole 40 MG in Sodium Chloride 0.9% 10 ML IVPUSH SCH ×2 (10:39→21:49)
[2023-02-27] MEDS: Tamsulosin 0.4 MG Cap.ER PO SCH ×2 (10:52→17:37)
[2023-02-27] MEDS: LORazepam 2 MG/ML SDV IV PRN (20:54)
[2023-02-28] MEDS: NS + KCl 20mEq/L 1,000 ML IV SCH (04:33)
[2023-02-28 07:47] LABS: BASOPHILS PERCENT AUTO 0.3 % (0.0-1.5); EOSINOPHILS ABSOLUTE AUTO 0.1 K/uL (0.0-0.7); EOSINOPHILS PERCENT AUTO 1.1 % (0.0-7.0); HEMATOCRIT 37.2 % (38.0-50.0); HEMOGLOBIN 13.1 g/dL (13.0-17.0); LYMPHOCYTES ABSOLUTE AUTO 1.7 K/uL (0.6-2.4); LYMPHOCYTES PERCENT AUTO 14.8 % (16.0-40.0); MEAN CORPUSCULAR HEMOGLOBIN 31.8 pg (27.0-32.0); MEAN CORPUSCULAR HGB CONC 35.2 g/dL (31.0-37.0); MEAN CORPUSCULAR VOLUME 90.3 fL (80.0-98.0); MONOCYTES ABSOLUTE AUTO 0.7 K/uL (0.0-0.8); MONOCYTES PERCENT AUTO 6.4 % (0.0-15.0); NEUTROPHILS ABSOLUTE AUTO 8.9 K/uL (1.4-5.7); NEUTROPHILS PERCENT AUTO 77.4 % (48.0-80.0); NRBC ABSOLUTE 0 K/uL; PLATELET COUNT,PLT 239 K/uL (150-400); RED BLOOD CELL COUNT 4.12 M/uL (4.50-5.90); WHITE BLOOD CELL COUNT,WBC 11.42 K/uL (4.0-11.0)
[2023-02-28 08:14] LABS: CALCIUM 7.9 mg/dL (8.5-10.1); CARBON DIOXIDE,CO2 24.2 mmol/L (21.0-32.0); CREATININE 0.6 mg/dL (0.8-1.3); EST CRCL DRUG DOSING (CG) 150.39 mL/min; POTASSIUM,K 3.3 mmol/L (3.5-5.1)
[2023-02-28] MEDS: amLODIPine 5 MG Tab PO SCH (09:02)
[2023-02-28] MEDS: Sennosides/Docusate Sodium 50-8.6 MG Tab PO SCH (09:02)
[2023-02-28] MEDS: Enoxaparin 40 MG/0.4 ML Syringe SUBCUT SCH (09:03)
[2023-02-28] MEDS: DULoxetine 60 MG Cap PO SCH (09:03)
[2023-02-28] MEDS: Tamsulosin 0.4 MG Cap.ER PO SCH (09:03)
[2023-02-28] MEDS: Nicotine 21 MG/24 Hr Patch TRDERM SCH (09:04)
[2023-02-28] MEDS: LORazepam 2 MG/ML SDV IV PRN (09:52)
[2023-02-28] MEDS ORDERED: Potassium Chloride 20 MEQ Tab.ER PO ONE (10:14)
[2023-02-28] MEDS: Pantoprazole 40 MG in Sodium Chloride 0.9% 10 ML IVPUSH SCH (10:35)
[2023-02-28 11:32] VITALS: BP 147/81; PULSE 89
== END 2023-02-28 11:20 | disposition home or self-care (01) ==
LOC: MW.ED 20:48 → MW.MS 21:38
PROVIDERS: ADMIT Internal Medicine; ATTEND Internal Medicine
DX: R10.9 Unspecified abdominal pain (principal); F32.9 Major depressive disorder, single episode, unspecified; K59.09 Other constipation; N20.0 Calculus of kidney; R11.2 Nausea with vomiting, unspecified; I10 Essential (primary) hypertension; L40.50 Arthropathic psoriasis, unspecified; E87.20 Acidosis, unspecified; E78.5 Hyperlipidemia, unspecified; E83.42 Hypomagnesemia; G47.33 Obstructive sleep apnea (adult) (pediatric); Z98.84 Bariatric surgery status; Z79.899 Other long term (current) drug therapy; Z90.49 Acquired absence of other specified parts of digestive tract
CPT/HCPCS: 36415; 74018; 74177; 80048; 80053; 80305; 80307; 81001; 82550; 83605; 83690; 83735; 84100; 85025; 87040; 96361; 96374; 96375; 99285; A9270; C9113; J1170; J1650; J1885; J2060; J2405; J3475; J3480; J3490; J7030; Q9967; 96365; 96366; 96368; 96372; 96376; 99222; 99232; 99239; G0378

== ENCOUNTER 2024-05-10 02:55 | Inpatient (IN) | payer SELFPAY ==
[2024-05-10] MEDS: Diazepam 5 MG Tab PO ONE (03:02)
[2024-05-10 03:10] LABS: BASOPHILS ABSOLUTE AUTO 0.07 K/uL (0.00-0.20); EOSINOPHILS ABSOLUTE AUTO 0.01 K/uL (0.00-0.45); EOSINOPHILS PERCENT AUTO 0.1 % (0.0-6.0); HEMATOCRIT 39.5 % (42.0-52.0); HEMOGLOBIN 14.2 g/dL (14.0-18.0); IMMATURE GRAN ABSOLUTE AUTO 0.02 K/uL (0.00-0.05); IMMATURE GRAN PERCENT AUTO 0.3 % (0.0-0.4); LYMPHOCYTES ABSOLUTE AUTO 1.23 K/uL (1.00-4.80); LYMPHOCYTES PERCENT AUTO 17.5 % (24.0-44.0); MEAN CORPUSCULAR HEMOGLOBIN 31.8 pg (28.0-32.0); MEAN CORPUSCULAR HGB CONC 35.9 g/dL (32.0-36.0); MEAN CORPUSCULAR VOLUME 88.6 fL (83.0-99.0); MEAN PLATELET VOLUME 9.3 fL (9.4-12.4); MONOCYTES ABSOLUTE AUTO 1.14 K/uL (0.00-0.80); MONOCYTES PERCENT AUTO 16.3 % (0.0-8.0); NEUTROPHILS ABSOLUTE AUTO 4.54 K/uL (1.80-7.70); NEUTROPHILS PERCENT AUTO 64.8 % (41.0-71.0); PLATELET COUNT,PLT 276 K/uL (150-400); RED BLOOD CELL COUNT 4.46 M/uL (4.52-5.90); WHITE BLOOD CELL COUNT,WBC 7.01 K/uL (3.9-11.3)
[2024-05-10 03:27] LABS: A/G RATIO 1.4 (0.9-1.6); ALBUMIN 4.6 g/dL (3.4-5.0); BILIRUBIN TOTAL 0.6 mg/dL (0.2-1.0); CALCIUM 9.4 mg/dL (8.5-10.1); CARBON DIOXIDE,CO2 22.9 mmol/L (21.0-32.0); CREATININE 0.9 mg/dL (0.8-1.3); EST CRCL DRUG DOSING (CG) 94.92 mL/min; POTASSIUM,K 3.4 mmol/L (3.5-5.1); PROTEIN TOTAL,TP 7.9 g/dL (6.4-8.2)
[2024-05-10 04:09] LABS: APPEARANCE,URINE SLT CLOUDY; BILIRUBIN,URINE NEGATIVE (NEGATIVE); COLOR,URINE YELLOW; GLUCOSE,URINE NEGATIVE (NEGATIVE); KETONES,URINE 15 mg/dL (NEGATIVE); LEUKOCYTE ESTERASE,URINE NEGATIVE (NEGATIVE); NITRITE,URINE NEGATIVE (NEGATIVE); OCCULT BLOOD,URINE NEGATIVE (NEGATIVE); PROTEIN,URINE 30 mg/dL (NEGATIVE); UROBILINOGEN,URINE 0.2 EU/dL (<2.0)
[2024-05-10 04:12] LABS: BACTERIA,URINE FEW (NEGATIVE); EPITHELIAL CELLS,URINE NOT SEEN (NONE-FEW); MUCUS,URINE NOT SEEN (NONE-MOD); RBC,URINE 0-1 (0-2/HPF); WBC,URINE 0-1 (0-5/HPF)
[2024-05-10 04:13] LABS: AMORPHOUS SEDIMENT,URINE HEAVY (NEGATIVE)
[2024-05-10] MEDS: Haloperidol Lactate 5 MG/ML SDV IM ONE (04:30)
[2024-05-10] MEDS: traMADol 50 MG Tab PO ONE (05:39)
[2024-05-10] MEDS: Morphine 4 MG/ML Syringe IM ONE (05:55)
[2024-05-10 05:57] LABS: AMPHETAMINES SCREEN, URINE NEGATIVE (CUTOFF=500); BARBITURATE SCREEN,URINE NEGATIVE (CUTOFF=200); BENZODIAZEPINES SCREEN,URINE NEGATIVE (CUTOFF=150); BUPRENORPHINE SCREEN,URINE NEGATIVE (CUTOFF=10); METHADONE SCREEN, URINE NEGATIVE (CUTOFF=200); METHAMPHETAMINES SCREEN, URINE NEGATIVE (CUTOFF=500); OXYCODONE SCREEN,URINE NEGATIVE (CUT0FF=100); PCP SCREEN,URINE NEGATIVE (CUTOFF=25); THC SCREEN,URINE 20 NG/ML PRESUMPTIVE POSITIVE (CUTOFF=50)
[2024-05-10] MEDS: Morphine 4 MG/ML Syringe IVPUSH ONE (05:59)
[2024-05-10] MEDS: diphenhydrAMINE 50 MG/ML SDV IVPUSH ONE (06:22)
[2024-05-10] MEDS: Sodium Chloride 0.9% 1,000 ML IV STA (06:52)
[2024-05-10 06:57] LABS: CORONAVIRUS COVID-19 NAA POSITIVE (NEGATIVE); INFLUENZA A NAA NEGATIVE (NEGATIVE); INFLUENZA B NAA NEGATIVE (NEGATIVE); RESPIRATORY SYNCYTIAL VIR NAA NEGATIVE (NEGATIVE)
[2024-05-10] MEDS: Sodium Chloride 0.9% 1,000 ML IV ONE (07:18)
[2024-05-10] MEDS: Acetaminophen 325 MG Tab PO ONE (09:56)
[2024-05-10] MEDS ORDERED: Ondansetron 4 MG/2 ML SDV IVPUSH PRN (12:04)
[2024-05-10] MEDS ORDERED: Sodium Chloride 0.9% 2.5 ML Syringe FLUSH PRN (12:04)
[2024-05-10] MEDS ORDERED: Sodium Chloride 0.9% 10 ML Syringe FLUSH PRN (12:04)
[2024-05-10] MEDS: Sodium Chloride 0.9% 1,000 ML IV SCH (12:29)
[2024-05-10 12:47] LABS: LACTIC ACID 2.2 mmol/L (0.4-2.0)
[2024-05-10] MEDS: LORazepam 1 MG Tab PO PRN (13:47)
[2024-05-10] MEDS: Tamsulosin 0.4 MG Cap.ER PO SCH (15:02)
[2024-05-10] MEDS: Acetaminophen 325 MG Tab PO PRN (15:11)
[2024-05-10] MEDS: Morphine 4 MG/ML Syringe IVPUSH PRN (15:12)
[2024-05-10] MEDS: LORazepam 1 MG Tab PO ONE (15:26)
[2024-05-10] MEDS: sulfaSALAzine 500 MG Tab PO SCH (22:19)
[2024-05-10] MEDS: DULoxetine 30 MG Cap PO SCH (22:37)
[2024-05-11] MEDS: hydrOXYzine HCl 25 MG Tab PO PRN (01:28)
[2024-05-11 05:29] LABS: BASOPHILS ABSOLUTE AUTO 0.05 K/uL (0.00-0.20); BASOPHILS PERCENT AUTO 0.6 % (0.0-1.0); EOSINOPHILS ABSOLUTE AUTO 0.16 K/uL (0.00-0.45); HEMATOCRIT 38.1 % (42.0-52.0); HEMOGLOBIN 13.4 g/dL (14.0-18.0); IMMATURE GRAN ABSOLUTE AUTO 0.03 K/uL (0.00-0.05); IMMATURE GRAN PERCENT AUTO 0.4 % (0.0-0.4); LYMPHOCYTES ABSOLUTE AUTO 2.42 K/uL (1.00-4.80); LYMPHOCYTES PERCENT AUTO 29.9 % (24.0-44.0); MEAN CORPUSCULAR HEMOGLOBIN 31.3 pg (28.0-32.0); MEAN CORPUSCULAR HGB CONC 35.2 g/dL (32.0-36.0); MEAN PLATELET VOLUME 9.1 fL (9.4-12.4); MONOCYTES ABSOLUTE AUTO 1.48 K/uL (0.00-0.80); MONOCYTES PERCENT AUTO 18.3 % (0.0-8.0); NEUTROPHILS ABSOLUTE AUTO 3.96 K/uL (1.80-7.70); NEUTROPHILS PERCENT AUTO 48.8 % (41.0-71.0); PLATELET COUNT,PLT 258 K/uL (150-400); RED BLOOD CELL COUNT 4.28 M/uL (4.52-5.90)
[2024-05-11 05:55] LABS: CALCIUM 8.5 mg/dL (8.5-10.1); CREATININE 0.7 mg/dL (0.8-1.3); EST CRCL DRUG DOSING (CG) 126.01 mL/min; POTASSIUM,K 3.2 mmol/L (3.5-5.1)
[2024-05-11] MEDS: VANCOmycin 2 GM/400 ML 2 GM in Premix Bag 1 BAG IV ONE (07:34)
[2024-05-11] MEDS: Pantoprazole 40 MG Tab.CR PO SCH (07:35)
[2024-05-11] MEDS ORDERED: Tamsulosin 0.4 MG Cap.ER PO SCH (09:00)
[2024-05-11] MEDS: Potassium Chloride 20 MEQ Tab.ER PO SCH (09:59)
[2024-05-11] MEDS: traMADol 50 MG Tab PO PRN (10:00)
[2024-05-11] MEDS ORDERED: LORazepam 2 MG/ML SDV IVPUSH ONE (10:53)
[2024-05-11] MEDS: LORazepam 2 MG/ML SDV IVPUSH ONE ×2 (13:39→16:50)
[2024-05-11] MEDS: Iopamidol 755 Mg/ML 100 ML Bottle IVPUSH ONE (17:16)
[2024-05-11] MEDS: Iopamidol 755 MG/ML 500 ML Multipack Bottle IVPUSH ONE ×2 (17:26→19:02)
[2024-05-11] MEDS: Enoxaparin 40 MG/0.4 ML Syringe SUBCUT SCH (22:00)
[2024-05-12 06:26] LABS: BASOPHILS ABSOLUTE AUTO 0.04 K/uL (0.00-0.20); BASOPHILS PERCENT AUTO 0.8 % (0.0-1.0); HEMATOCRIT 35.6 % (42.0-52.0); HEMOGLOBIN 12.3 g/dL (14.0-18.0); IMMATURE GRAN ABSOLUTE AUTO 0.01 K/uL (0.00-0.05); IMMATURE GRAN PERCENT AUTO 0.2 % (0.0-0.4); LYMPHOCYTES ABSOLUTE AUTO 1.72 K/uL (1.00-4.80); LYMPHOCYTES PERCENT AUTO 32.5 % (24.0-44.0); MEAN CORPUSCULAR HGB CONC 34.6 g/dL (32.0-36.0); MEAN CORPUSCULAR VOLUME 89.7 fL (83.0-99.0); MEAN PLATELET VOLUME 9.5 fL (9.4-12.4); MONOCYTES ABSOLUTE AUTO 0.81 K/uL (0.00-0.80); MONOCYTES PERCENT AUTO 15.3 % (0.0-8.0); NEUTROPHILS ABSOLUTE AUTO 2.72 K/uL (1.80-7.70); NEUTROPHILS PERCENT AUTO 51.2 % (41.0-71.0); PLATELET COUNT,PLT 222 K/uL (150-400); RED BLOOD CELL COUNT 3.97 M/uL (4.52-5.90)
[2024-05-12 06:48] LABS: CALCIUM 7.8 mg/dL (8.5-10.1); CARBON DIOXIDE,CO2 24.7 mmol/L (21.0-32.0); CREATININE 0.6 mg/dL (0.8-1.3); EST CRCL DRUG DOSING (CG) 147.01 mL/min; MAGNESIUM 1.4 mg/dL (1.8-2.4); POTASSIUM,K 3.3 mmol/L (3.5-5.1)
[2024-05-12 08:25] VITALS: BP 148/87; PULSE 67
[2024-05-12] MEDS: Potassium Chloride 20 MEQ Tab.ER PO ONE (09:46)
[2024-05-12] MEDS ORDERED: Magnesium Sulfate/Water 2 GM in Premix Bag 1 BAG IV ONE (10:41)
== END 2024-05-12 11:09 | disposition left against medical advice (07) | DRG 178 ==
LOC: MW.ED 02:55 → MW.MS 10:25 → OBSVTOIN 05-11 10:52 → MW.MS 05-11 19:32
PROVIDERS: ADMIT Internal Medicine; ATTEND Internal Medicine
DX: U07.1 COVID-19 (principal); D84.9 Immunodeficiency, unspecified; E87.20 Acidosis, unspecified; R78.81 Bacteremia; F32.A Depression, unspecified; I10 Essential (primary) hypertension; F41.9 Anxiety disorder, unspecified; N40.0 Benign prostatic hyperplasia without lower urinary tract symptoms; G47.30 Sleep apnea, unspecified; K59.09 Other constipation; K21.9 Gastro-esophageal reflux disease without esophagitis; M19.90 Unspecified osteoarthritis, unspecified site; L40.50 Arthropathic psoriasis, unspecified; F17.290 Nicotine dependence, other tobacco product, uncomplicated; Z98.84 Bariatric surgery status; Z90.49 Acquired absence of other specified parts of digestive tract; Z79.899 Other long term (current) drug therapy
CPT/HCPCS: 0241U; 36415; 71045; 71045-26; 71260; 71260-26; 74177; 74177-26; 80048; 80053; 80202; 80305-QW; 81001; 82550; 83605; 83735; 84484; 85025; 87040; 87077; 87154; 87186; 93005; 93306; 96361; 96365; 96366; 96372; 96374; 96375; 96376; 99285-25; A9270-GY; G0378; J1200; J1630; J1650; J2060; J2270; J3370; J3372; J7030; J7050; Q9967